=== PATIENT | male | born 1955 | race Caucasian/White ===

== ENCOUNTER → 2019-04-16 09:23 | Outpatient (CLI) | payer OTHER, SELFPAY ==
[2014-03-01 08:39] VITALS: BMI 32.1
[2019-04-16 12:44] LABS: BUN 17 mg/dL (7-18); Creatinine, Serum 1.21 mg/dL (0.70-1.30); EST Glomerular Filtration Rate 64 mL/min (>60); Glucose 94 mg/dL (74-106)
[2019-04-16 12:45] LABS: ALB/GLOB Ratio 1.2 RATIO (0.9-2.4); AST(SGOT) 19 U/L (15-37); Alanine Aminotransfer ALT/SGPT 32 U/L (16-61); Alkaline Phosphatase 84 U/L (45-117); Anion Gap 5 (5-15); Calcium,Total 9.3 mg/dL (8.5-10.1); Chloride 106 mmol/L (98-107); Est Glom Filt Rate - Afr Amer 77 mL/min (>60); Globulin 3.3 g/dL (2.2-4.2); PSA,Total - Annual Screen 1.56 ng/mL (0.00-4.00); Potassium 4.2 mmol/L (3.5-5.1); Protein, Total 7.3 g/dL (6.4-8.2); Sodium Level 139 mmol/L (136-145)
[2019-04-16 12:55] LABS: Microalbumin,Random Urine 18.7 mg/L (NO RANGE EST.); Microalbumin:Creatinine Ratio 7.1 mg/g CRE (<30 mg/g CRE)
[2019-04-17 14:08] LABS: CHOLESTEROL TOTAL 264 mg/dL (100-199); HDL-C 49 mg/dL (>39); HDL-P TOTAL 29.6 umol/L (>=30.5); SMALL LDL-P 1167 nmol/L (<=527); TRIGLYCERIDES 109 mg/dL (0-149)
[2019-04-19 15:12] LABS: INSULIN RESISTANCE SCORE 49 (<=45); LDL SIZE 20.9 nm (>20.5); LDL-C 193 mg/dL (0-99); LDL-P 2564 nmol/L (<1000)
== END ==
PROVIDERS: Family Provider Family Medicine; PCP Family Medicine; Referring Provider Family Medicine; Visit Provider Family Medicine
DX: Z00.00 Encounter for general adult medical examination without abnormal findings (principal); I10 Essential (primary) hypertension; E78.00 Pure hypercholesterolemia, unspecified
CPT/HCPCS: 36415; 80053; 80061; 82043; 82570; 83704; 84153; G0103

== ENCOUNTER → 2019-10-22 08:45 | Outpatient (CLI) | payer MEDICARE, OTHER, SELFPAY ==
[2019-10-22 10:53] LABS: ALB/GLOB Ratio 1.1 RATIO (0.9-2.4); AST(SGOT) 16 U/L (15-37); Alanine Aminotransfer ALT/SGPT 26 U/L (16-61); Albumin, Serum 3.8 g/dL (3.2-5.0); Alkaline Phosphatase 92 U/L (45-117); Anion Gap 5 (5-15); BUN 22 mg/dL (7-18); BUN/Creat Ratio 20.8 RATIO (10-20); Calcium,Total 9.1 mg/dL (8.5-10.1); Chloride 108 mmol/L (98-107); Creatinine, Serum 1.06 mg/dL (0.70-1.30); EST Glomerular Filtration Rate 74 mL/min (>60); Est Glom Filt Rate - Afr Amer 90 mL/min (>60); Globulin 3.4 g/dL (2.2-4.2); Glucose 93 mg/dL (74-106); Potassium 4.2 mmol/L (3.5-5.1); Protein, Total 7.2 g/dL (6.4-8.2); Sodium Level 141 mmol/L (136-145)
[2019-10-24 12:07] LABS: CHOLESTEROL TOTAL 254 mg/dL (100-199); HDL-C 57 mg/dL (>39); HDL-P TOTAL 35.4 umol/L (>=30.5); SMALL LDL-P 1469 nmol/L (<=527); TRIGLYCERIDES 146 mg/dL (0-149)
[2019-10-24 12:57] LABS: INSULIN RESISTANCE SCORE 67 (<=45); LDL SIZE 20.7 nm (>20.5); LDL-C 168 mg/dL (0-99); LDL-P 2630 nmol/L (<1000)
== END ==
PROVIDERS: PCP Family Medicine; Referring Provider Family Medicine; Visit Provider Family Medicine
DX: E78.00 Pure hypercholesterolemia, unspecified (principal); I10 Essential (primary) hypertension
CPT/HCPCS: 36415; 80053; 80061; 83704

== ENCOUNTER → 2020-07-25 09:33 | Outpatient (CLI) | payer MEDICARE, OTHER, SELFPAY ==
[2014-03-01 08:39] VITALS: BMI 32.1
[2020-07-25 13:00] LABS: ALB/GLOB Ratio 1.2 RATIO (0.9-2.4); AST(SGOT) 24 U/L (15-37); Alanine Aminotransfer ALT/SGPT 27 U/L (16-61); Albumin, Serum 3.9 g/dL (3.2-5.0); Alkaline Phosphatase 83 U/L (45-117); Anion Gap 7 (5-15); BUN 25 mg/dL (7-18); BUN/Creat Ratio 19.1 RATIO (10-20); Calcium,Total 9.1 mg/dL (8.5-10.1); Chloride 104 mmol/L (98-107); Cholesterol 192 mg/dL (200); Creatinine, Serum 1.31 mg/dL (0.70-1.30); EST Glomerular Filtration Rate 58 mL/min (>60); Est Glom Filt Rate - Afr Amer 70 mL/min (>60); Globulin 3.3 g/dL (2.2-4.2); Glucose 85 mg/dL (74-106); High Density Lipoprotein 89 mg/dL; Potassium 3.7 mmol/L (3.5-5.1); Protein, Total 7.2 g/dL (6.4-8.2); Sodium Level 138 mmol/L (136-145); Triglycerides 59 mg/dL; Very Low Density Lipoprotein 12 mg/dL (5-40)
== END ==
PROVIDERS: PCP Family Medicine; Visit Provider Family Medicine
DX: E78.00 Pure hypercholesterolemia, unspecified (principal)
CPT/HCPCS: 36415; 80053; 80061

== ENCOUNTER → 2020-10-20 09:41 | Outpatient (CLI) | payer MEDICARE, OTHER, SELFPAY ==
[2014-03-01 08:39] VITALS: BMI 32.1
[2020-10-20 12:26] LABS: ALB/GLOB Ratio 1.2 RATIO (0.9-2.4); AST(SGOT) 25 U/L (15-37); Alanine Aminotransfer ALT/SGPT 31 U/L (16-61); Albumin, Serum 3.9 g/dL (3.2-5.0); Alkaline Phosphatase 80 U/L (45-117); Anion Gap 6 (5-15); BUN 20 mg/dL (7-18); BUN/Creat Ratio 15.3 RATIO (10-20); Calcium,Total 9.1 mg/dL (8.5-10.1); Chloride 106 mmol/L (98-107); Cholesterol 194 mg/dL (200); Creatinine, Serum 1.31 mg/dL (0.70-1.30); EST Glomerular Filtration Rate 58 mL/min (>60); Est Glom Filt Rate - Afr Amer 70 mL/min (>60); Globulin 3.3 g/dL (2.2-4.2); Glucose 83 mg/dL (74-106); High Density Lipoprotein 70 mg/dL; Potassium 4.1 mmol/L (3.5-5.1); Protein, Total 7.2 g/dL (6.4-8.2); Sodium Level 139 mmol/L (136-145); Triglycerides 94 mg/dL; Very Low Density Lipoprotein 19 mg/dL (5-40)
== END ==
PROVIDERS: PCP Family Medicine; Referring Provider Family Medicine; Visit Provider Family Medicine
DX: I10 Essential (primary) hypertension (principal)
CPT/HCPCS: 36415; 80053; 80061

== ENCOUNTER 2021-04-10 16:00 | Outpatient (CLI) | payer MEDICARE, OTHER, SELFPAY | END 2021-04-10 23:59 | disposition short-term general hospital (02) | DX: J06.9 Acute upper respiratory infection, unspecified (principal) | CPT/HCPCS: 87635; U0003; U0005 ==

== ENCOUNTER 2021-04-27 08:31 | Outpatient (CLI) | payer MEDICARE, OTHER, SELFPAY ==
[2021-04-27 11:16] LABS: ALB/GLOB Ratio 1.1 RATIO (0.9-2.4); AST(SGOT) 20 U/L (15-37); Alanine Aminotransfer ALT/SGPT 25 U/L (16-61); Albumin, Serum 3.8 g/dL (3.2-5.0); Alkaline Phosphatase 82 U/L (45-117); Anion Gap 7 (5-15); BUN 22 mg/dL (7-18); BUN/Creat Ratio 20.2 RATIO (10-20); Calcium,Total 9.2 mg/dL (8.5-10.1); Chloride 108 mmol/L (98-107); Cholesterol 187 mg/dL (200); Creatinine, Serum 1.09 mg/dL (0.70-1.30); EST Glomerular Filtration Rate 72 mL/min (>60); Est Glom Filt Rate - Afr Amer 87 mL/min (>60); Globulin 3.4 g/dL (2.2-4.2); Glucose 88 mg/dL (74-106); High Density Lipoprotein 63 mg/dL; Potassium 4.3 mmol/L (3.5-5.1); Protein, Total 7.2 g/dL (6.4-8.2); Sodium Level 140 mmol/L (136-145); Triglycerides 68 mg/dL; Very Low Density Lipoprotein 14 mg/dL (5-40)
[2021-04-27 12:16] LABS: Microalbumin:Creatinine Ratio 5.3 mg/g CRE (<30 mg/g CRE)
== END 2021-04-27 23:59 | disposition short-term general hospital (02) ==
LOC: MFPLAB 08:35
PROVIDERS: PCP Family Medicine; Referring Provider Family Medicine; Visit Provider Family Medicine
DX: E78.00 Pure hypercholesterolemia, unspecified (principal); R79.89 Other specified abnormal findings of blood chemistry
CPT/HCPCS: 36415; 80053; 80061; 82043; 82570

== ENCOUNTER → 2021-10-23 | Outpatient (CLI) | payer MEDICARE, OTHER, SELFPAY ==
[2021-10-23 12:49] LABS: ALB/GLOB Ratio 1.2 RATIO (0.9-2.4); AST(SGOT) 16 U/L (15-37); Alanine Aminotransfer ALT/SGPT 22 U/L (16-61); Albumin, Serum 3.9 g/dL (3.2-5.0); Alkaline Phosphatase 78 U/L (45-117); Anion Gap 4 (5-15); BUN 18 mg/dL (7-18); BUN/Creat Ratio 13.1 RATIO (10-20); Calcium,Total 9.3 mg/dL (8.5-10.1); Chloride 107 mmol/L (98-107); Cholesterol 173 mg/dL (200); Creatinine, Serum 1.37 mg/dL (0.70-1.30); EST Glomerular Filtration Rate 55 mL/min (>60); Est Glom Filt Rate - Afr Amer 67 mL/min (>60); Globulin 3.3 g/dL (2.2-4.2); Glucose 86 mg/dL (74-106); High Density Lipoprotein 65 mg/dL; Potassium 3.8 mmol/L (3.5-5.1); Protein, Total 7.2 g/dL (6.4-8.2); Sodium Level 140 mmol/L (136-145); Triglycerides 94 mg/dL; Very Low Density Lipoprotein 19 mg/dL (5-40)
== END | disposition home or self-care (01) ==
LOC: MFPLAB 10:20
PROVIDERS: PCP Family Medicine; Visit Provider Family Medicine
DX: E78.00 Pure hypercholesterolemia, unspecified (principal)
CPT/HCPCS: 36415; 80053; 80061

== ENCOUNTER → 2021-12-18 | Outpatient (CLI) | payer MEDICARE, OTHER, SELFPAY ==
[2021-12-18 15:26] LABS: Absolute Lymphocyte Count 1.32 X10^3/uL (0.83-4.51); Absolute Neutrophil Count 4.9 X10^3/uL (2.0-7.7); Basophil# 0.02 X10^3/uL; Basophil% 0.3 % (0-1); Eosinophil# 0.12 X10^3/uL; Eosinophils% 1.7 % (0-5); Hematocrit 40.6 % (40-54); Hemoglobin 13.3 g/dL (13.0-16.5); Lymphocyte # 1.32 X10^3/ul (0.83-4.51); Lymphocyte % 18.9 % (19-41); Mean Corp Hgb Conc 32.8 g/dL (32-36); Mean Corpuscular Hgb 29.8 pg (27.0-32.0); Mean Corpuscular Volume 90.8 fL (80-94); Mean Platelet Vol. 10.3 fl (6.2-12.0); Monocyte# 0.57 X10^3/uL; Monocyte% 8.2 % (0-10); NRBC Flagged by Analyzer 0 % (0-5); Neutrophil # 4.93 X10^3/uL (2.7-7.7); Neutrophil % 70.6 % (47-70); Platelet Count 288 K/mm3 (150-450); RBC Distribution Width CV 17.2 % (11.6-14.6); RBC Distribution Width SD 57.6 fl (35.1-43.9); RET-HE 31.3 pg (30-35); Red Blood Count 4.47 M/mm3 (4.6-6.2); Reticulocyte Count 1.47 % (0.5-1.5)
[2021-12-18 15:44] LABS: Microalbumin,Random Urine 9.8 mg/L (NO RANGE EST.); Microalbumin:Creatinine Ratio 5.7 mg/g CRE (<30 mg/g CRE)
[2021-12-18 15:49] LABS: ALB/GLOB Ratio 1.1 RATIO (0.9-2.4); AST(SGOT) 18 U/L (15-37); Alanine Aminotransfer ALT/SGPT 25 U/L (16-61); Albumin, Serum 3.6 g/dL (3.2-5.0); Alkaline Phosphatase 78 U/L (45-117); Anion Gap 7 (5-15); BUN 23 mg/dL (7-18); BUN/Creat Ratio 19.5 RATIO (10-20); Calcium,Total 9.3 mg/dL (8.5-10.1); Chloride 107 mmol/L (98-107); Creatinine, Serum 1.18 mg/dL (0.70-1.30); EST Glomerular Filtration Rate 65 mL/min (>60); Est Glom Filt Rate - Afr Amer 79 mL/min (>60); Ferritin 9 ng/mL (26-388); Globulin 3.4 g/dL (2.2-4.2); Glucose 77 mg/dL (74-106); Iron Binding Capacity,Total 484 ug/dL (250-450); PSA,Total - Annual Screen 2.15 ng/mL (0.00-4.00); Potassium 3.8 mmol/L (3.5-5.1); Sodium Level 142 mmol/L (136-145)
== END | disposition home or self-care (01) ==
LOC: MFPLAB 12:15
PROVIDERS: PCP Family Medicine; Visit Provider Family Medicine
DX: I12.9 Hypertensive chronic kidney disease with stage 1 through stage 4 chronic kidney disease, or unspecified chronic kidney disease (principal); N18.2 Chronic kidney disease, stage 2 (mild); E61.1 Iron deficiency; Z12.5 Encounter for screening for malignant neoplasm of prostate
CPT/HCPCS: 36415; 80053; 82043; 82570; 82728; 83550; 84153; 85025; 85045; G0103

== ENCOUNTER → 2022-04-30 | Outpatient (CLI) | payer MEDICARE, OTHER, SELFPAY ==
[2022-04-30 12:36] LABS: Absolute Lymphocyte Count 1.31 X10^3/uL (0.83-4.51); Absolute Neutrophil Count 2.1 X10^3/uL (2.0-7.7); Basophil# 0.02 X10^3/uL; Basophil% 0.5 % (0-1); Eosinophil# 0.13 X10^3/uL; Eosinophils% 3.3 % (0-5); Hematocrit 45.2 % (40-54); Hemoglobin 15.1 g/dL (13.0-16.5); Lymphocyte # 1.31 X10^3/ul (0.83-4.51); Lymphocyte % 32.8 % (19-41); Mean Corp Hgb Conc 33.4 g/dL (32-36); Mean Corpuscular Hgb 30.9 pg (27.0-32.0); Mean Corpuscular Volume 92.6 fL (80-94); Monocyte# 0.44 X10^3/uL; NRBC Flagged by Analyzer 0 % (0-5); Neutrophil # 2.09 X10^3/uL (2.7-7.7); Neutrophil % 52.1 % (47-70); Platelet Count 270 K/mm3 (150-450); RBC Distribution Width SD 51.6 fl (35.1-43.9); Red Blood Count 4.88 M/mm3 (4.6-6.2)
[2022-04-30 12:52] LABS: ALB/GLOB Ratio 1.1 RATIO (0.9-2.4); AST(SGOT) 17 U/L (15-37); Alanine Aminotransfer ALT/SGPT 27 U/L (16-61); Albumin, Serum 3.6 g/dL (3.2-5.0); Alkaline Phosphatase 78 U/L (45-117); Anion Gap 8 (5-15); BUN 19 mg/dL (7-18); Calcium,Total 8.9 mg/dL (8.5-10.1); Chloride 106 mmol/L (98-107); Creatinine, Serum 1.12 mg/dL (0.70-1.30); EST Glomerular Filtration Rate 69 mL/min (>60); Est Glom Filt Rate - Afr Amer 84 mL/min (>60); Ferritin 32 ng/mL (26-388); Globulin 3.2 g/dL (2.2-4.2); Glucose 78 mg/dL (74-106); PSA,Total - Annual Screen 1.79 ng/mL (0.00-4.00); Potassium 4.2 mmol/L (3.5-5.1); Protein, Total 6.8 g/dL (6.4-8.2); Sodium Level 139 mmol/L (136-145)
[2022-04-30 15:45] LABS: Microalbumin:Creatinine Ratio 4.9 mg/g CRE (<30 mg/g CRE)
== END | disposition home or self-care (01) ==
LOC: MFPLAB 09:27
PROVIDERS: PCP Family Medicine; Visit Provider Family Medicine
DX: I12.9 Hypertensive chronic kidney disease with stage 1 through stage 4 chronic kidney disease, or unspecified chronic kidney disease (principal); N18.2 Chronic kidney disease, stage 2 (mild); E61.1 Iron deficiency; Z12.5 Encounter for screening for malignant neoplasm of prostate
CPT/HCPCS: 36415; 80053; 82043; 82570; 82728; 84153; 85025; G0103

== ENCOUNTER → 2022-11-05 | Outpatient (CLI) | payer MEDICARE, OTHER, SELFPAY ==
[2022-11-05 12:21] LABS: Absolute Lymphocyte Count 1.42 X10^3/uL (0.83-4.51); Absolute Neutrophil Count 2.6 X10^3/uL (2.0-7.7); Basophil# 0.02 X10^3/uL; Basophil% 0.4 % (0-1); Eosinophil# 0.12 X10^3/uL; Eosinophils% 2.6 % (0-5); Hematocrit 46.6 % (40-54); Hemoglobin 15.1 g/dL (13.0-16.5); Lymphocyte # 1.42 X10^3/ul (0.83-4.51); Lymphocyte % 30.6 % (19-41); Mean Corp Hgb Conc 32.4 g/dL (32-36); Mean Corpuscular Hgb 31.6 pg (27.0-32.0); Mean Corpuscular Volume 97.5 fL (80-94); Mean Platelet Vol. 10.3 fl (6.2-12.0); Monocyte# 0.48 X10^3/uL; Monocyte% 10.3 % (0-10); NRBC Flagged by Analyzer 0 % (0-5); Neutrophil # 2.59 X10^3/uL (2.7-7.7); Neutrophil % 55.9 % (47-70); Platelet Count 250 K/mm3 (150-450); Red Blood Count 4.78 M/mm3 (4.6-6.2); White Blood Count 4.6 K/mm3 (4.4-11.0)
[2022-11-05 13:25] LABS: AST(SGOT) 19 U/L (15-37); Alanine Aminotransfer ALT/SGPT 30 U/L (16-61); Albumin, Serum 3.6 g/dL (3.2-5.0); Alkaline Phosphatase 83 U/L (45-117); Anion Gap 2 (5-15); BUN 17 mg/dL (7-18); BUN/Creat Ratio 14.2 RATIO (10-20); Chloride 108 mmol/L (98-107); Cholesterol 201 mg/dL (200); EST Glomerular Filtration Rate 64 mL/min (>60); Est Glom Filt Rate - Afr Amer 77 mL/min (>60); Ferritin 31 ng/mL (26-388); Globulin 3.6 g/dL (2.2-4.2); Glucose 89 mg/dL (74-106); High Density Lipoprotein 66 mg/dL; Potassium 4.9 mmol/L (3.5-5.1); Protein, Total 7.2 g/dL (6.4-8.2); Sodium Level 139 mmol/L (136-145); Triglycerides 100 mg/dL; Very Low Density Lipoprotein 20 mg/dL (5-40)
[2022-11-05 14:46] LABS: Microalbumin,Random Urine 8.2 mg/L (NO RANGE EST.); Microalbumin:Creatinine Ratio 4.3 mg/g CRE (<30 mg/g CRE)
== END | disposition home or self-care (01) ==
LOC: MFPLAB 10:05
PROVIDERS: PCP Family Medicine; Visit Provider Family Medicine
DX: I12.9 Hypertensive chronic kidney disease with stage 1 through stage 4 chronic kidney disease, or unspecified chronic kidney disease (principal); N18.2 Chronic kidney disease, stage 2 (mild); E61.1 Iron deficiency; E78.00 Pure hypercholesterolemia, unspecified
CPT/HCPCS: 36415; 80053; 80061; 82043; 82570; 82728; 85025

== ENCOUNTER → 2023-05-02 | Outpatient (CLI) | payer MEDICARE, OTHER, SELFPAY ==
--- OUTSIDE RECORDS SUMMARY | 2023-05-02 10:52 | XMS RPT_ITS | CCD ---
Author Name Unknown Address [address] [place] [address] Organization [facility] Results Test Name Value Interpretation Reference Range Facil ity Progress note 11-04-2020 Note Date & Type Note Facility 11-04-2020 Note HNO ID: [id number] Author: Annmarie Prieto MD Service: ? Author Type: Physician Type: Progress Notes Filed: 11/05/2020 12:43 PM Note Text: Otto Salmon 1955 REFERRING PHYSICIAN: Clarence Acevedo MD CHIEF COMPLAINT: Consult HPI: The patient is a pleasant 65 year old male who presents for consideration of screening for colon cancer via colonoscopy. He is referred by his family physician. He had a previous colonoscopy in 2013, he had a colonoscopy in 2004 with findings of polyps but this pathology report was at the [facility] and no longer available. He notes no colon cancer in family He denies abdominal pain He denies changes inbowel habts He denies blood in stools PAST MEDICAL HISTORY Diagnosis Date - Essential hypertension - High cholesterol PAST SURGICAL HISTORY Procedure Laterality Date - PAST SURGICAL HISTORY OF 2000 uvulopalatopharyngoplasty Tonsillectomy and adenoidectomy Denies history of bone fractures Current Outpatient Medications Medication Sig - amLODIPine-Valsartan 5-320 mg per tablet - atorvastatin (LIPITOR) 10 mg tablet Take 10 mg by mouth once daily. - VASCEPA capsule Take 1 g by mouth twice daily. - pioglitazone (ACTOS) 30 mg tablet Take 30 mg by mouth once daily. - MULTI-VITAMIN ORAL Take by mouth once daily. - Ascorbic Rbsp-Yskdseqsu-Yhy (EMERGEN-C) 1,000 mg pwep Take by mouth once daily. - lysine 500 mg tab Take by mouth once daily. - Vitamin E, dl, acetate, (VITAMIN E) 400 unit capsule Take 400 Units by mouth once daily. - OTC NUTRITIONAL SUPPLEMENT Take 575 mg by mouth once daily. Black elderberry - INV VITAMIN D3 5000 UNITS CAPSULE (IRB 19-1548) Take 5,000 Units by mouth once daily. For Investigational Drug Use Only. PI: Melissa Ram, PhD. Take one capsule by mouth daily for 3 months prior to surgery and 3 months after surgery. - Saw [place] Fruit 450 mg cap Take by mouth. ALLERGIES: Patient has no known allergies. PERSONAL HISTORY: Social History Tobacco Use - Smoking status: Never Smoker - Smokeless tobacco: Never Used Substance Use Topics - Alcohol use: Yes Alcohol/week: 1.0 standard drinks Types: 1 Glasses of Wine (5oz) per week Comment: daily red wine - Drug use: Never FAMILY HISTORY Problem Relation Age of Onset - Diabetes Mother - Cancer Mother - Diabetes Father - Pancreatic Cancer Father - Diabetes Brother His father had pancreatic cancer. His grandmother had breast cancer Mother had what sounds like a sarcoma The review of systems data was entered by the nurse and reviewed by mi Nursing Notes: Marlene Simmons RN 11/01/2020 9:36 AM Signed REVIEW OF SYSTEMS: General: The patient denies fatigue, denies weight loss, denies weight gain, denies feeling hot, and denies feelings of cold. Eyes: The patient denies glaucoma, denies eye injury/surgery, wears glasses or contacts. Ear/Nose/Throat: The patient denies allergies, denies hayfever, denies ear infections, and denies bloody noses. Cardiovascular: The patient denies chest pain, denies heart disease, notes high blood pressure,denies cardiac stent, denies prior heart attack, denies irregular heart beat, notes high cholesterol, denies poor circulation, denies heart failure, other cardiac issues, denies claudication, notes cold feet, denies peripheral arterial stent. Respiratory: The patient denies tuberculosis, denies pneumonia, denies frequent cough, denies pulmonary embolism, denies shortness of breath, and denies coughing up blood. Gastrointestinal: The patient denies difficulty swallowing, denies acid reflux, denies ulcers, denies vomiting, denies jaundice/hepatitis, denies gallbladder problems, denies black or tarry stools, notes hemorrhoids, denies bleeding from rectum, denies diverticulitis, denies constipation, denies diarrhea, denies loss of stool control, and denies hernias. Kidney/Bladder: The patient denies kidney stones, denies urine infections, and denies bloody urine. Skin: The patient denies a history of skin cancer, denies bleeding/changing moles, and denies a history of skin rash. Neurologic: The patient denies a history of epilepsy/convulsions, denies headaches, denies head/spinal injuries, and denies stroke/TIA. Psychiatric: The patient denies psychiatric medications, denies depression, and denies voices, denies substance abuse. Endocrine: The patient denies thyroid disorders, denies diabetes, and denies hormonal problems. Hematologic: The patient denies a history of bruising, denies bleeding, and denies anemia, denies blood clots. Infections: The patient denies a history of measles and mumps, denies rheumatic fever, and denies sexually transmitted diseases. Musculoskeletal: The patient denies back pain/injury, denies back problems, denies sciatica, denies knee/foot trouble, denies arthritis, or denies gout. When was patient's last Mammogram screening? N/A Last Colonoscopy: (more content not included)... [facility] Summary Purpose Family History No Family History Records Found Advance Directives No Advanced Directives Records Found Additional Source Comments (unrecognized sect ion and content) No Status Records Found INFORMATION SOURCE (unrecogn ized section and content) FOR RECORDS PERTAINING TO PATIENTS WHO ARE OR HAVE BEEN ENROLLED IN A CHEMICAL DEPENDENCY/SUBSTANCEABUSE PROGRAM, SOME INFORMATION MAY BE OMITTED. This clinical summary was aggregated from multiple sources. Caution should be exercised in using it in the provision of clinical care. This summary normalizes information from multiple sources, and as a consequence, information in this document may materially change the coding, format and clinical context of patient data. In addition, data may be omitted in some cases. CLINICAL DECISIONS SHOULD BE BASED ON THE PRIMARY CLINICAL RECORDS. [employer] provides no warranty or guarantee of the accuracy or completeness of information in this document.
[2023-05-02 12:44] LABS: Absolute Lymphocyte Count 1.05 X10^3/uL (0.83-4.51); Absolute Neutrophil Count 3.5 X10^3/uL (2.0-7.7); Basophil# 0.02 X10^3/uL; Basophil% 0.4 % (0-1); Eosinophil# 0.07 X10^3/uL; Eosinophils% 1.4 % (0-5); Hematocrit 42.9 % (40-54); Hemoglobin 14.1 g/dL (13.0-16.5); Lymphocyte # 1.05 X10^3/ul (0.83-4.51); Lymphocyte % 20.8 % (19-41); Mean Corp Hgb Conc 32.9 g/dL (32-36); Mean Corpuscular Hgb 30.5 pg (27.0-32.0); Mean Corpuscular Volume 92.9 fL (80-94); Mean Platelet Vol. 10.1 fl (6.2-12.0); Monocyte# 0.42 X10^3/uL; Monocyte% 8.3 % (0-10); NRBC Flagged by Analyzer 0 % (0-5); Neutrophil # 3.48 X10^3/uL (2.7-7.7); Neutrophil % 68.9 % (47-70); Platelet Count 270 K/mm3 (150-450); RBC Distribution Width SD 51.4 fl (35.1-43.9); Red Blood Count 4.62 M/mm3 (4.6-6.2); White Blood Count 5.1 K/mm3 (4.4-11.0)
[2023-05-02 13:14] LABS: Microalbumin,Random Urine 9.5 mg/L (NO RANGE EST.); Microalbumin:Creatinine Ratio 4.8 mg/g CRE (<30 mg/g CRE)
[2023-05-02 13:15] LABS: ALB/GLOB Ratio 1.2 RATIO (0.9-2.4); AST(SGOT) 24 U/L (15-37); Alanine Aminotransfer ALT/SGPT 31 U/L (16-61); Albumin, Serum 3.8 g/dL (3.2-5.0); Alkaline Phosphatase 80 U/L (45-117); Anion Gap 3 (5-15); BUN 23 mg/dL (7-18); BUN/Creat Ratio 18.9 RATIO (10-20); Calcium,Total 9.3 mg/dL (8.5-10.1); Chloride 108 mmol/L (98-107); Cholesterol 181 mg/dL (200); Creatinine, Serum 1.22 mg/dL (0.70-1.30); EST Glomerular Filtration Rate 63 mL/min (>60); Est Glom Filt Rate - Afr Amer 76 mL/min (>60); Ferritin 16 ng/mL (26-388); Globulin 3.1 g/dL (2.2-4.2); Glucose 89 mg/dL (74-106); High Density Lipoprotein 60 mg/dL; Potassium 3.9 mmol/L (3.5-5.1); Protein, Total 6.9 g/dL (6.4-8.2); Sodium Level 138 mmol/L (136-145); Triglycerides 82 mg/dL; Very Low Density Lipoprotein 16 mg/dL (5-40)
== END | disposition home or self-care (01) ==
LOC: MFPLAB 10:17
PROVIDERS: PCP Family Medicine; Visit Provider Family Medicine
DX: N18.2 Chronic kidney disease, stage 2 (mild) (principal); E78.00 Pure hypercholesterolemia, unspecified; E61.1 Iron deficiency
CPT/HCPCS: 36415; 80053; 80061; 82043; 82570; 82728; 85025

== ENCOUNTER → 2023-10-21 | Outpatient (CLI) | payer MEDICARE, OTHER, SELFPAY ==
[2023-10-21 10:29] LABS: Bacteria 0 SEEN /hpf (None Seen); Mucous, Urine 0 SEEN /hpf (<or=2+); Red Blood Cells-Urine 0 SEEN /hpf (0-5); Squamous Epithelial Cells - UA 0 SEEN /hpf (0-5); White Blood Cells 0 SEEN /hpf (0-5)
[2023-10-21 12:11] LABS: Absolute Lymphocyte Count 1.32 X10^3/uL (0.83-4.51); Absolute Neutrophil Count 3.9 X10^3/uL (2.0-7.7); Basophil# 0.03 X10^3/uL; Basophil% 0.5 % (0-1); Eosinophils% 1.7 % (0-5); Hematocrit 42.1 % (40-54); Hemoglobin 14.2 g/dL (13.0-16.5); Lymphocyte # 1.32 X10^3/ul (0.83-4.51); Lymphocyte % 22.1 % (19-41); Mean Corp Hgb Conc 33.7 g/dL (32-36); Mean Corpuscular Hgb 31.9 pg (27.0-32.0); Mean Corpuscular Volume 94.6 fL (80-94); Mean Platelet Vol. 10.1 fl (6.2-12.0); Monocyte# 0.59 X10^3/uL; Monocyte% 9.9 % (0-10); NRBC Flagged by Analyzer 0 % (0-5); Neutrophil # 3.92 X10^3/uL (2.7-7.7); Neutrophil % 65.6 % (47-70); Platelet Count 252 K/mm3 (150-450); RBC Distribution Width SD 49.1 fl (35.1-43.9); Red Blood Count 4.45 M/mm3 (4.6-6.2)
[2023-10-21 14:10] LABS: ALB/GLOB Ratio 1.1 RATIO (0.9-2.4); AST(SGOT) 23 U/L (15-37); Alanine Aminotransfer ALT/SGPT 26 U/L (16-61); Albumin, Serum 3.6 g/dL (3.2-5.0); Alkaline Phosphatase 81 U/L (45-117); Anion Gap 6 (5-15); BUN 25 mg/dL (7-18); CRP 3.87 mg/L (0.0-3.0); Calcium,Total 9.2 mg/dL (8.5-10.1); Chloride 106 mmol/L (98-107); Creatinine, Serum 1.04 mg/dL (0.70-1.30); EST Glomerular Filtration Rate 75 mL/min (>60); Est Glom Filt Rate - Afr Amer 91 mL/min (>60); Ferritin 28 ng/mL (26-388); Globulin 3.4 g/dL (2.2-4.2); Glucose 98 mg/dL (74-106); Potassium 4.3 mmol/L (3.5-5.1); Sodium Level 139 mmol/L (136-145)
[2023-10-21 21:24] LABS: Color, Urine Yellow (Yellow); Glucose, Dipstick Normal (Normal); Ketone-Dipstick Negative (Negative); Leukocyte Esterase-Dipstick Negative /ul (Negative); Nitrite-Dipstick Negative (Negative); Occult Blood-Urine Negative /ul (Negative); Protein-Dipstick Negative (Negative); Urine Bilirubin Dipstick Negative (Negative); Urine Clarity Clear (Clear); Urine Urobilinogen Normal (Normal)
[2023-10-21 21:49] LABS: Calcium Oxalate Crystals Ur RARE /hpf (<or=2+)
[2023-10-23 16:10] LABS: PROEL- A/G Ratio 1.3 (0.7-1.7); PROEL- Albumin 3.7 g/dL (2.9-4.4); PROEL- Alpha-1 Globulin 0.2 g/dL (0.0-0.4); PROEL- Alpha-2 Globulin 0.7 g/dL (0.4-1.0); PROEL- Beta Globulin 0.9 g/dL (0.7-1.3); PROEL- Gamma Globulin 1.2 g/dL (0.4-1.8); PROEL- Globulin, Total 2.9 g/dL (2.2-3.9); PROEL- TOTAL PROTEIN 6.6 g/dL (6.0-8.5); PROEL-M-Spike 0.5 g/dL (Not Observed)
== END | disposition home or self-care (01) ==
LOC: MFPLAB 10:26
PROVIDERS: PCP Family Medicine; Visit Provider Family Medicine
DX: R10.9 Unspecified abdominal pain (principal); E61.1 Iron deficiency
CPT/HCPCS: 36415; 80053; 81001; 82728; 84165; 85025; 86140; 87086

== ENCOUNTER → 2023-11-07 | Outpatient (CLI) | payer MEDICARE, OTHER, SELFPAY ==
[2023-11-07 12:35] LABS: Vitamin D,25 Hydroxy 59.5 ng/mL
[2023-11-07 12:36] LABS: PTHIN 68.7 pg/mL (18.4-80.1)
[2023-11-08 13:09] LABS: PROEL- A/G Ratio 1.3 (0.7-1.7); PROEL- Albumin 3.9 g/dL (2.9-4.4); PROEL- Alpha-1 Globulin 0.2 g/dL (0.0-0.4); PROEL- Alpha-2 Globulin 0.7 g/dL (0.4-1.0); PROEL- Beta Globulin 1.1 g/dL (0.7-1.3); PROEL- Gamma Globulin 0.9 g/dL (0.4-1.8); PROEL- Globulin, Total 2.9 g/dL (2.2-3.9); PROEL- TOTAL PROTEIN 6.8 g/dL (6.0-8.5); PROEL-M-Spike Not Observed g/dL (Not Observed)
== END | disposition home or self-care (01) ==
LOC: MFPLAB 10:49
PROVIDERS: PCP Family Medicine; Visit Provider Family Medicine
DX: D47.2 Monoclonal gammopathy (principal)
CPT/HCPCS: 36415; 82306; 83970; 84165

== ENCOUNTER → 2024-04-30 | Outpatient (CLI) | payer MEDICARE, OTHER, SELFPAY ==
[2024-04-30 12:31] LABS: Anion Gap 5 (5-15); BUN 25 mg/dL (7-18); BUN/Creat Ratio 22.1 RATIO (10-20); Calcium,Total 9.5 mg/dL (8.5-10.1); Chloride 106 mmol/L (98-107); Cholesterol 196 mg/dL (200); Creatinine, Serum 1.13 mg/dL (0.70-1.30); EST Glomerular Filtration Rate 68 mL/min (>60); Est Glom Filt Rate - Afr Amer 83 mL/min (>60); Glucose 93 mg/dL (74-106); High Density Lipoprotein 68 mg/dL; Potassium 4.3 mmol/L (3.5-5.1); Sodium Level 138 mmol/L (136-145); Triglycerides 76 mg/dL; Very Low Density Lipoprotein 15 mg/dL (5-40)
[2024-05-01 16:08] LABS: PROEL- A/G Ratio 1.4 (0.7-1.7); PROEL- Albumin 3.8 g/dL (2.9-4.4); PROEL- Alpha-1 Globulin 0.2 g/dL (0.0-0.4); PROEL- Alpha-2 Globulin 0.7 g/dL (0.4-1.0); PROEL- Gamma Globulin 0.9 g/dL (0.4-1.8); PROEL- Globulin, Total 2.8 g/dL (2.2-3.9); PROEL- TOTAL PROTEIN 6.6 g/dL (6.0-8.5); PROEL-M-Spike Not Observed g/dL (Not Observed)
== END | disposition home or self-care (01) ==
LOC: MFPLAB 10:29
PROVIDERS: PCP Family Medicine; Referring Provider Family Medicine; Visit Provider Family Medicine
DX: E78.00 Pure hypercholesterolemia, unspecified (principal); D47.2 Monoclonal gammopathy
CPT/HCPCS: 36415; 80048; 80061; 84165

== ENCOUNTER → 2024-11-10 | Outpatient (CLI) | payer MEDICARE, OTHER, SELFPAY ==
[2024-11-10 12:38] LABS: Hematocrit 42.0 % (40-54); Hemoglobin 14.0 g/dL (13.0-16.5); Immature Granulocytes Count 0.020 X10^3/uL (0.0-0.0); Mean Corp Hgb Conc 33.3 g/dL (32-36); Mean Corpuscular Volume 95.5 fL (80-94); Mean Platelet Vol. 10.0 fl (6.2-12.0); NRBC Flagged by Analyzer 0 % (0-5); Platelet Count 235 K/mm3 (150-450); RBC Distribution Width CV 14.6 % (11.6-14.6); RBC Distribution Width SD 51.1 fl (35.1-43.9); Red Blood Count 4.40 M/mm3 (4.6-6.2); White Blood Count 6.2 K/mm3 (4.4-11.0)
[2024-11-10 13:03] LABS: AST(SGOT) 25 U/L (<=37); Alanine Aminotransfer ALT/SGPT 20 U/L (<=46); Albumin, Serum 4.0 g/dL (3.4-4.8); Alkaline Phosphatase 78 U/L (40-129); Anion Gap 10 (5-15); BUN 17 mg/dL (4-19); BUN/Creat Ratio 16.4 RATIO (10-20); Calcium,Total 9.4 mg/dL (7.6-11.0); Carbon Dioxide 25.0 mmol/L (21.0-32.0); Chloride 105 mmol/L (98-108); Cholesterol 184 mg/dL (<=200); Globulin 2.5 g/dL (2.2-4.2); Glucose 93 mg/dL (70-99); Low Density Lipoprotein Calc. 102 mg/dL; Potassium 4.7 mmol/L (3.3-5.1); Triglycerides 86 mg/dL; Very Low Density Lipoprotein 17 mg/dL (5-40); cholesterol:hdl ratio screen 2.82
--- OUTSIDE RECORDS SUMMARY | 2024-11-10 14:09 | XMS RPT_ITS | CCD ---
Author Organization [facility] Care Team Providers Care Security Associate Name Role Phone ESTUARDO ACEVEDO MD Attending Unavailable PHYSICIAN, DARIO Primary Care Unavailable Estuardo Acevedo MD Primary Care Provider ANNMARIE PRIETO Attending Unavailable ESTUARDO ACEVEDO Primary Care Unavailable SOMMER MARRERO Referring Unavailable SOMMER MARRERO Attending Unavailable ESTUARDO ACEVEDO Referring Unavailable ESTUARDO ACEVEDO Primary Care Unavailable Estuardo Acevedo Attending Unavailable Estuardo Acevedo Primary Care Unavailable Estuardo Acevedo Attending Unavailable Estuardo Acevedo Primary Care Unavailable Estuardo Acevedo Primary Care Unavailable Estuardo Acevedo Referring Unavailable Estuardo Acevedo Attending Unavailable PHYSICIAN, NONE Primary Care Physician Unavailab le Medications Current Medications Medication Drug Class(es) Dates Sig (Normalized) Sig (Original) amLODIPine 2.5 mg oral tablet (5 sources) Dihydropyridine Calcium Channel Anat Start: 4 take 2.5 mg by mouth once daily Amlodipine Active 2.5 MG PO DAILY March 01, 2014 12:00am amLODIPine 5 mg / valsartan 320 mg oral tablet (3 sources) Dihydropyridine Calcium Channel Anat, Angiotensin 2 Receptor Anat Start: 1 take 1 tablet by mouth once daily amLODIPine-Valsarta n 5-320 mg per tablet Take 1 tablet by mouth once daily. 10/11/2020 Active Ascorbic Wvcm-Xgsvaxwyf-Wzv (EMERGEN-C) 1,000 mg pwep (3 sources) Ascorbic Nmvb-Jfutqlrrp-Wki (EMERGEN-C) 1,000 mg pwep Take by mouth once daily. Active aspirin 81 mg chewable tablet (5 sources) Platelet Aggregation Inhibitor, Nonsteroidal Anti-inflammatory Drug Start: 4 take 81 mg by mouth once daily Aspirin Active 81 MG PO DAILY March 01, 2014 12:00am atorvastatin 10 mg oral tablet (3 sources) HMG-CoA Reductase Inhibitor Start: 1 take 1 tablet by mouth every other day atorvastatin (LIPITOR) 10 mg tablet Take 10 mg by mouth every other day. M-W-F 10/12/2020 Active cholecalciferol 0.125 mg oral tablet (3 sources) Vitamin D take 1 tablet by mouth once daily cholecalciferol (VITAMIN D-3) 5,000 unit tab Take 5,000 Units by mouth once daily. Active cinnamon bark 500 mg oral capsule (3 sources) take 1 capsule by mouth twice daily Cinnamon Bark (CINNAMON) 500 mg cap Take 500 mg by mouth two times a day. Active ELDERBERRY FRUIT (3 sources) take 575 mg by mouth once daily elderberry fruit (ELDERBERRY ORAL) Take 575 mg by mouth once daily. Active ferrous sulfate 325 mg oral tablet (3 sources) take 1 tablet by mouth once daily ferrous sulfate (IRON) 325 mg (65 mg iron) tablet Take 325 mg by mouth once daily. Active icosapent ethyl 1000 mg oral capsule (3 sources) Start: 1 take 1 capsule by mouth twice daily VASCEPA capsule Take 2 g by mouth two times a day. 10/12/2020 Active losartan potassium 100 mg oral tablet (5 sources) Angiotensin 2 Receptor Anat Start: 4 take 100 mg by mouth once daily Losartan Active 100 MG PO DAILY March 01, 2014 12:00am lysine 500 mg oral tablet (3 sources) take 1 tablet by mouth once daily lysine 500 mg tab Take 500 mg by mouth once daily. Active MULTI-VITAMIN ORAL (3 sources) MULTI-VITAMIN OR AL Take by mouth once daily. Active pioglitazone 30 mg oral tablet (3 sources) Peroxisome Proliferator Receptor alpha Agonist, Peroxisome Proliferator Receptor gamma Agonist, Thiazolidinedione Start: 1 take 1 tablet by mouth once daily pioglitazone (ACTOS) 30 mg tablet Take 30 mg by mouth once daily. 10/26/2020 Active polyethylene glycol 3350 387462 mg / potassium chloride 2970 mg / sodium bicarbonate 6740 mg / sodium chloride 5860 mg / sodium sulfate 47355 mg powder for oral solution (1 source) Osmotic Laxative Start: 4 End: 4 peg 3350-Electrolytes (GOLYTELY) 236-22.74-6.74 -5.86 gram suspension Indications: Encounter for screening for malignant neoplasm of colon Take 4,000 mL by mouth one time only for 1 dose. Refer to printed prep instructions from your provider. 4000 mL 01/28/2024 01/28/2024 Active pravastatin sodium 20 mg oral tablet (5 sources) HMG-CoA Reductase Inhibitor Start: 4 take 20 mg by mouth at bedtime Pravastatin Active 20 MG PO AT BEDTIME March 01, 2014 12:00am [place] Fruit 450 mg cap (3 sources) take 1 capsule by mouth once daily Saw [place] Fruit 450 mg cap Take 450 mg by mouth once daily. Active vitamin e 268 mg oral capsule (3 sources) take 1 capsule by mouth once daily Vitamin E, dl, acetate, (VITAMIN E) 400 unit capsule Take 400 Units by mouth once daily. Active Completed/Discontinued Medications Medication Drug Class(es) Dates Sig (Normalized) Sig (Original) calcium chloride 0.0014 meq/ml / potassium chloride 0.004 meq/ml / sodium chloride 0.103 meq/ml / sodium lactate 0.028 meq/ml injectable solution (1 source) Start: 02-28-2024 End: 02-28-2024 take 30 mL intravenously every hour 30 mL/hr, INTRAVENOUS, CONTINUOUS, Starting on Sat02/28/24 at 0900, Until Sat02/28/24 at 1013, Preprocedure diphenhydrAMINE (1 source) Histamine-1 Receptor Antagonist Start: 02-28-2024 End: 02-28-2024 12.5-50 mg, INTRAVENOUS, DIRECTED, Starting on Sat02/28/24 at 1000, Until Sat02/28/24 at 1359, DOSING DIRECTED BY PHYSICIAN FOR PROCEDURAL SEDATION ONLY, Intraprocedure 1 ml fentaNYL 0.05 mg/ml injection (1 source) Opioid Agonist Start: 02-28-2024 End: 02-28-2024 25-100 mcg, INTRAVENOUS, DIRECTED, Starting on Sat02/28/24 at 1000, Until Sat02/28/24 at 1359, DOSING DIRECTED BY PHYSICIAN FOR PROCEDURAL SEDATION ONLY, Intraprocedure INV VITAMIN D3 5000 UNITS CAPSULE (IRB 19-1548) (1 source) End: 01-28-2024 take 1 capsule by mouth once daily INV VITAMIN D3 5000 UNITS CAPSULE (IRB 19-1548) Take 5,000 Units by mouth once daily. For Investigational Drug Use Only. PI: Melissa Ram, PhD. Take one capsule by mouth daily for 3 months prior to surgery and 3 months after surgery. 01/28/2024 Discontinued (Discontinued by Patient) 5 ml midazolam 1 mg/ml injection (1 source) Benzodiazepine Start: 02-28-2024 End: 02-28-2024 1-5 mg, INTRAVENOUS, DIRECTED, Starting on Sat02/28/24 at 1000, Until Sat02/28/24 at 1359, DOSING DIRECTED BY PHYSICIAN FOR PROCEDURAL SEDATION ONLY, Intraprocedure OTC NUTRITIONAL SUPPLEMENT (1 source) End: 01-28-2024 take 575 mg by mouth once daily OTC NUTRITIONAL SUPPLEMENT Take 575 mg by mouth once daily. Black elderberry 01/28/2024 Discontinued (Discontinued by Patient) Problems Active Problems Problem Classification Problem Date Documented Da te Episodic/Chronic Disorders of lipid metabolism (1 source) Pure hypercholesterolemi a, unspecified; Translations: [Pure hypercholesterolemi a, unspecified] Onset: 05-20-2024 Chronic Essential hypertension (4 sources) Essential hypertension; Translations: [Essential (primary) hypertension] Onset: 01-27-2024 01-27-2024 Chronic Neoplasms of unspecified nature or uncertain behavior (1 source) Monoclonal gammopathy; Translations: [Monoclonal gammopathy] Onset: 12-16-2023 Chronic Open wounds of extremities (1 source) Laceration of finger without foreign body; Translations: [Laceration without foreign body of unspecified finger without damage to nail, initial encounter] Onset: 11-09-2024 Episodic Other and unspecified benign neoplasm (1 source) History of polyp of colon; Translations: [History of colonic polyps] 01-28-2024 Episodic Other screening for suspected conditions (not mental disorders or infectious disease) (5 sources) Patient encounter status; Translations: [Encounter for screening for malignant neoplasm of colon] Onset: 02-28-2024 01-28-2024 Episodic Past or Other Problems Problem Classification Problem Date Documented Da te Episodic/Chronic Abdominal pain (1 source) Unspecified abdominal pain; Translations: [Unspecified abdominal pain] Onset: 11-07-2023 Episodic Results Test Name Value Interpretation Reference Range Facility Protein Electroph, Son 05-01 Albumin [Mass/Vol] 3.8 g/dL Normal 2.9-4.4 [facility] Comment on above: Order Comment: Order Date: 11/07/23 Order Info: [id number] - VITD25 Performed By: #### L 509.1000, L3100.3450, L506.1000 #### [facility] [address] [place], [address] Albumin/Globulin [Mass ratio] 1.4 {ratio} Normal 0.7-1.[address] [facility] Comment on above: Order Comment: Order Date: 11/07/23 Order Info: [id number] - VITD25 Performed By: #### L 509.1000, L3100.3450, L506.1000 #### [facility] [address] [place], [address] ALPHA-1 GLOBUL 0.2 g/dL Normal 0.0-0.[address] [facility] Comment on above: Order Comment: Order Date: 11/07/23 Order Info: [id number] - VITD25 Performed By: #### L 509.1000, L3100.3450, L506.1000 #### [facility] [address] [place], [address] ALPHA-2 GLOBUL 0.7 g/dL Normal 0.4-1.[address] [facility] Comment on above: Order Comment: Order Date: 11/07/23 Order Info: [id number] - VITD25 Performed By: #### L 509.1000, L3100.3450, L506.1000 #### [facility] [address] [place], [address] BETA GLOBULIN 1.0 g/dL Normal 0.7-1.[address] [facility] Comment on above: Order Comment: Order Date: 11/07/23 Order Info: [id number] - VITD25 Performed By: #### L 509.1000, L3100.3450, L506.1000 #### [facility] [address] [place], [address] GAMMA GLOBULIN 0.9 g/dL Normal 0.4-1.[address] [facility] Comment on above: Order Comment: Order Date: 11/07/23 Order Info: [id number] - VITD25 Performed By: #### L 509.1000, L3100.3450, L506.1000 #### [facility] [address] [place], [place], [address] Globulin (S) [Mass/Vol] 2.8 g/dL Normal 2.2-3.9 [facility] Comment on above: Order Comment: Order Date: 11/07/23 Order Info: [id number] - VITD25 Performed By: #### L 509.1000, L3100.3450, L506.1000 #### [facility] [address] [place], [address] INTERPRETATION Comment Normal . [facility] Comment on above: Order Comment: Order Date: 11/07/23 Order Info: [id number] - VITD25 Result Comment: Prot ein electrophoresis scan will follow via computer, mail, or building insulation supervisor delivery. Performed By: #### L 509.1000, L3100.3450, L506.1000 #### [facility] [address] [place], [address] M-SPIKE Not Observed Normal Not Observed [facility] Comment on above: Order Comment: Order Date: 11/07/23 Order Info: [id number] - VITD25 Performed By: #### L 509.1000, L3100.3450, L506.1000 #### [facility] [address] [place], [address] NOTE: Comment Normal . [facility] Comment on above: Order Comment: Order Date: 11/07/23 Order Info: [id number] - VITD25 Result Comment: The SPE pattern appears unremarkable. Evidence of monoclonal protein is not apparent. Performed at: [address] [id number] Packing Inspector: Dakotah Khoury PhD, Phone: [phone] Performed By: #### L 509.1000, L3100.3450, L506.1000 #### [facility] [address] [place], [address] Protein [Mass/Vol] 6.6 g/dL Normal 6.0-8.5 [facility] Comment on above: Order Comment: Order Date: 11/07/23 Order Info: [id number] - VITD25 Performed By: #### L 509.1000, L3100.3450, L506.1000 #### [facility] [address] [place], [address] Basic Metabolic Profile (BMP )on 04-30-2024 BUN/CRE 22.1 RATIO High 10-[address] [facility] Comment on above: Order Comment: Order Date: 11/07/23 Order Info: [id number] - VITD25 Performed By: #### L 509.1000, L3100.3450, L506.1000 #### [facility] [address] [place], [address] CA,Total 9.5 mg/dL Normal 8.5-10.[address] [facility] Comment on above: Order Comment: Order Date: 11/07/23 Order Info: [id number] - VITD25 Performed By: #### L 509.1000, L3100.3450, L506.1000 #### [facility] [address] [place], [address] Chloride [Moles/Vol] 106 mmol/L Normal 98-107 [facility] Comment on above: Order Comment: Order Date: 11/07/23 Order Info: [id number] - VITD25 Performed By: #### L 509.1000, L3100.3450, L506.1000 #### [facility] [address] [place], [address] CO2 [Moles/Vol] 28.0 mmol/L Normal 21.0-32.[address] [facility] Comment on above: Order Comment: Order Date: 11/07/23 Order Info: [id number] - VITD25 Performed By: #### L 509.1000, L3100.3450, L506.1000 #### [facility] [address] [place], [address] Creatinine [Mass/Vol] 1.13 mg/dL Normal 0.70-1.30 [facility] Comment on above: Order Comment: Order Date: 11/07/23 Order Info: [id number] - VITD25 Result Comment: The validity of the calculated GFR GFRAA in patients over 70 years has not been determined. Clinical correlation is essential. Performed By: #### L 509.1000, L3100.3450, L506.1000 #### [facility] [address] [place], [address] EST GFR - AA 83 mL/min Normal >[address] [facility] Comment on above: Order Comment: Order Date: 11/07/23 Order Info: [id number] - VITD25 Result Comment: Afri can Qatari GFR Calc Performed By: #### L 509.1000, L3100.3450, L506.1000 #### [facility] [address] [place], [address] GAP 5 Normal 5-[address] [facility] Comment on above: Order Comment: Order Date: 11/07/23 Order Info: [id number] - VITD25 Performed By: #### L 509.1000, L3100.3450, L506.1000 #### [facility] [address] [place], [address] GFR/1.73 sq M.predicted among non-blacks MDRD (S/P/Bld) [Vol rate/Area] 68 mL/min/{1.73_m2} Normal >[address] [facility] Comment on above: Order Comment: Order Date: 11/07/23 Order Info: [id number] - VITD25 Result Comment: Non- GFR Calc Performed By: #### L 509.1000, L3100.3450, L506.1000 #### [facility] [address] [place], [address] Glucose [Mass/Vol] 93 mg/dL Normal 74-106 [facility] Comment on above: Order Comment: Order Date: 11/07/23 Order Info: [id number] - VITD25 Performed By: #### L 509.1000, L3100.3450, L506.1000 #### [facility] [address] [place], [address] Potassium [Moles/Vol] 4.3 mmol/L Normal 3.5-5.1 [facility] Comment on above: Order Comment: Order Date: 11/07/23 Order Info: [id number] - VITD25 Performed By: #### L 509.1000, L3100.3450, L506.1000 #### [facility] [address] [place], [address] Sodium [Moles/Vol] 138 mmol/L Normal 136-145 [facility] Comment on above: Order Comment: Order Date: 11/07/23 Order Info: [id number] - VITD25 Performed By: #### L 509.1000, L3100.3450, L506.1000 #### [facility] [address] [place], [address] Urea nitrogen [Mass/Vol] 25 mg/dL High 7-[address] [facility] Comment on above: Order Comment: Order Date: 11/07/23 Order Info: [id number] - VITD25 Performed By: #### L 509.1000, L3100.3450, L506.1000 #### [facility] [address] [place], [address] Lipid Profileon 04-30-2024 Cholesterol [Mass/Vol] 196 mg/dL Normal 200 [facility] Comment on above: Order Comment: Order Date: 11/07/23 Order Info: [id number] - VITD25 Result Comment: <200 mg/dL Desirable 200-240 mg/dL Borderline >240 mg/dL High Risk Performed By: #### L 509.1000, L3100.3450, L506.1000 #### [facility] [address] [place], [address] Cholesterol in HDL [Mass/Vol] 68 mg/dL Normal [facility] Comment on above: Order Comment: Order Date: 11/07/23 Order Info: [id number] - VITD25 Result Comment: The drugs N-Acetylcysteine and Metamizole may falsely depress this assay. Reference Range HDL <40 mg/dL Low HDL Cholesterol HDL >or= 60 mg/dL High HDL Cholesterol Performed By: #### L 509.1000, L3100.3450, L506.1000 #### [facility] [address] [place], [address] Cholesterol in LDL [Mass/Vol] 113 mg/dL Normal 0-[address] [facility] Comment on above: Order Comment: Order Date: 11/07/23 Order Info: [id number] - VITD25 Performed By: #### L 509.1000, L3100.3450, L506.1000 #### [facility] [address] [place], [address] Cholesterol in VLDL [Mass/Vol] 15 mg/dL Normal 5-[address] [facility] Comment on above: Order Comment: Order Date: 11/07/23 Order Info: [id number] - VITD25 Performed By: #### L 509.1000, L3100.3450, L506.1000 #### [facility] [address] [place], [address] Triglyceride [Mass/Vol] 76 mg/dL Normal [facility] Comment on above: Order Comment: Order Date: 11/07/23 Order Info: [id number] - VITD25 Result Comment: The drugs N-Acetylcysteine and Metamizole may falsely depress this assay. Serum Triglycerides Reference Interval Normal <150 mg/dL Borderline high 150 - 199 mg/dL High 200 - 499 mg/dL Very High > or = 500 mg/dL Performed By: #### L 509.1000, L3100.3450, L506.1000 #### [facility] [address] [place], [address] [id number] 02-28-2024 [id number] HNO ID: [id number] Author: APPLE WILLIS RN Service: ? Author Type: Registered Nurse Type: [id number] Filed: 02/28/2024 10:15 Note Text: The patient received a copy of Colonoscopy discharge instructions that contain information for how to contact the physician who performed the procedure and when to seek medical care. Normal [facility] Colonoscopyon 02-28-2024 Colonoscopy [facility] Gastrointestinal Endoscopy Patient Name: Carisa Mcdonald Procedure Date: 02/28/2024 9:31 AM Date of : 1955 Admit Type: Outpatient Age: 68 Gender: Male Note Status: Finalized Procedure: Colonoscopy Indications: Screening for colorectal malignant neoplasm Providers: Annmarie Prieto MD Patient Profile: Refer to note in patient chart for documentation of history and physical. Last Colonoscopy: 2013. Referring Physician: Sommer Marrero (Referring MD) Medicines: Midazolam 5 mg IV, Fentanyl 100 micrograms IV, Diphenhydramine 50 mg IV Complications: No immediate complications. Requesting Provider: Procedure: Pre-Anesthesia Assessment: - Prior to the procedure, a History and Physical was performed, and patient medications and allergies were reviewed. The patient is competent. The risks and benefits of the procedure and the sedation options and risks were discussed with the patient. All questions were answered and informed consent was obtained. Patient identification and proposed procedure were verified by the physician in the pre-procedure area. Mental Status Examination: alert and oriented. Airway Examination: normal oropharyngeal airway and neck mobility. Respiratory Examination: clear to auscultation. CV Examination: normal. Prophylactic Antibiotics: The patient does not require prophylactic antibiotics. Prior Anticoagulants: The patient has taken no anticoagulant or antiplatelet agents. ASA Grade Assessment: III - A patient with severe systemic disease. After reviewing the risks and benefits, the patient was deemed in satisfactory condition to undergo the procedure. The anesthesia plan was to use moderate sedation / analgesia (conscious sedation). Immediately prior to administration of medications, the patient was re-assessed for adequacy to receive sedatives. The heart rate, respiratory rate, oxygen saturations, blood pressure, adequacy of pulmonary ventilation, and response to care were monitored throughout the procedure. The physical status of the patient was re-assessed after the procedure. After I obtained informed consent, the scope was passed under direct vision. Throughout the procedure, the patient's blood pressure, pulse, and oxygen saturations were monitored continuously. The Colonoscope was introduced through the anus and advanced to the cecum, identified by the appendiceal orifice, ileocecal valve and palpation. The colonoscopy was performed without difficulty. The patient tolerated the procedure well. The quality of the bowel preparation was adequate to identify polyps greater than 5 mm in size. The appendiceal orifice and the rectum were photographed. Moderate Sedation: The administration of moderate sedation was initiated at 09:35. Moderate (conscious) sedation was personally administered by the endoscopist. The following parameters were monitored: oxygen saturation, heart rate, blood pressure, respiratory rate, EKG, adequacy of pulmonary ventilation, and response to care. Total physician intraservice time was 26 minutes. Findings: The perianal and digital rectal examinations were normal. Multiple small-mouthed diverticula were found in the sigmoid colon. Non-bleeding internal hemorrhoids were found. A 2 to 3 mm polyp was found in the transverse colon. The polyp was sessile. The polyp was removed with a cold biopsy forceps. Resection and retrieval were complete. Verification of patient identification for the specimen was done by the nurse. Estimated blood loss was minimal. Impression: - Diverticulosis in the sigmoid colon. - Non-bleeding internal hemorrhoids. - One 2 to 3 mm polyp in the transverse colon, removed with a cold biopsy forceps. Resected and retrieved. Recommendation: - Await pathology results. - - Follow up with Evelyne Marrero NP, may be via televisit for discussion of pathology results and determination of timing of future endoscopies - Patient has a contact number available for emergencies. The signs and symptoms of potential delayed complications were discussed with the patient. Return to normal activities tomorrow. Written discharge instructions were provided to the patient. - Continue present medications. - Resume previous diet. - Repeat colonoscopy is recommended for surveillance. The colonoscopy date will be determined based on pathology results from today's exam and current guidelines. Procedure Code(s): --- Professional --- 53519, Colonoscopy, flexible; with biopsy, single or multiple 09052, 59, Moderate sedation services provided by the same physician or other qualified health resident care aid performing the diagnostic or therapeutic service that the sedation supports, requiring the presence of an independent trained observer to assist in the monitoring of the patient's level of consciousness and physiological status; ini (more content not included)... Normal [facility] Colonoscopy Study observatio non 02-28-2024 [place] [facility] Gastrointestinal Endoscopy Patient Name: Carisa Mcdonald Procedure Date: 02/28/2024 9:31 AM Date of : 1955 Admit Type: Outpatient Age: 68 Gender: Male Note Status: Finalized Procedure: Colonoscopy Indications: Screening for colorectal malignant neoplasm Providers: Annmarie Prieto MD Patient Profile: Refer to note in patient chart for documentation of history and physical. Last Colonoscopy: 2013. Referring Physician: Sommer Marrero (Referring MD) Medicines: Midazolam 5 mg IV, Fentanyl 100 micrograms IV, Diphenhydramine 50 mg IV Complications: No immediate complications. Requesting Provider: Procedure: Pre-Anesthesia Assessment: - Prior to the procedure, a History and Physical was performed, and patient medications and allergies were reviewed. The patient is competent. The risks and benefits of the procedure and the sedation options and risks were discussed with the patient. All questions were answered and informed consent was obtained. Patient identification and proposed procedure were verified by the physician in the pre-procedure area. Mental Status Examination: alert and oriented. Airway Examination: normal oropharyngeal airway and neck mobility. Respiratory Examination: clear to auscultation. CV Examination: normal. Prophylactic Antibiotics: The patient does not require prophylactic antibiotics. Prior Anticoagulants: The patient has taken no anticoagulant or antiplatelet agents. ASA Grade Assessment: III - A patient with severe systemic disease. After reviewing the risks and benefits, the patient was deemed in satisfactory condition to undergo the procedure. The anesthesia plan was to use moderate sedation / analgesia (conscious sedation). Immediately prior to administration of medications, the patient was re-assessed for adequacy to receive sedatives. The heart rate, respiratory rate, oxygen saturations, blood pressure, adequacy of pulmonary ventilation, and response to care were monitored throughout the procedure. The physical status of the patient was re-assessed after the procedure. After I obtained informed consent, the scope was passed under direct vision. Throughout the procedure, the patient's blood pressure, pulse, and oxygen saturations were monitored continuously. The Colonoscope was introduced through the anus and advanced to the cecum, identified by the appendiceal orifice, ileocecal valve and palpation. The colonoscopy was performed without difficulty. The patient tolerated the procedure well. The quality of the bowel preparation was adequate to identify polyps greater than 5 mm in size. The appendiceal orifice and the rectum were photographed. Moderate Sedation: The administration of moderate sedation was initiated at 09:35. Moderate (conscious) sedation was personally administered by the endoscopist. The following parameters were monitored: oxygen saturation, heart rate, blood pressure, respiratory rate, EKG, adequacy of pulmonary ventilation, and response to care. Total physician intraservice time was 26 minutes. Findings: The perianal and digital rectal examinations were normal. Multiple small-mouthed diverticula were found in the sigmoid colon. Non-bleeding internal hemorrhoids were found. A 2 to 3 mm polyp was found in the transverse colon. The polyp was sessile. The polyp was removed with a cold biopsy forceps. Resection and retrieval were complete. Verification of patient identification for the specimen was done by the nurse. Estimated blood loss was minimal. Impression: - Diverticulosis in the sigmoid colon. - Non-bleeding internal hemorrhoids. - One 2 to 3 mm polyp in the transverse colon, removed with a cold biopsy forceps. Resect (more content not included)... PROVATION [facility] Radiology Study observation (narrative) [facility] HISTORY PHYSICALon HISTORY PHYSICAL HNO ID: [id number] Author: ANNMARIE PRIETO MD Service: General Surgery Author Type: Physician Type: H&P Filed: 02/28/2024 08:52 Note Text: HISTORY AND PHYSICAL Carisa Painting : 1955 REFERRING PHYSICIAN: Estuardo Acevedo (Cyndi) [place] [address] [address] CHIEF COMPLAINT: Patient presents with: Consult: Colonoscopy consultation. HPI: Carisa is a 68 year old male referred for endoscopy. Carisa notes due for screening colonoscopy. Carisa denies abdominal pain.. Carisa denies diarrhea. Carisa denies constipation. Carisa denies a change in bowel habits. Carisa denies melena. Carisa denies bright red blood per rectum. Carisa denies hemorrhoids. Carisa denies heartburn. Carisa denies dysphagia. Carisa denies a history of ulcers/ peptic ulcer disease. Carisa denies family history of colon issues. Medical history significant for HTN, HLD, WESTON. Carisa has undergone prior endoscopy. Colonoscopy in 2005 had 1 polyp, path unavailable, repeat colonoscopy in 2007 normal. Colonoscopy in 2013 which was normal. All colonoscopies with Dr. Prieto. CURRENT MEDICATIONS Current Outpatient Medications Medication Sig elderberry fruit (ELDERBERRY ORAL) Take 575 mg by mouth once daily. cholecalciferol (VITAMIN D-3) 5,000 unit tab Take 5,000 Units by mouth once daily. ferrous sulfate (IRON) 325 mg (65 mg iron) tablet Take 325 mg by mouth once daily. Cinnamon Bark (CINNAMON) 500 mg cap Take 500 mg by mouth two times a day. amLODIPine-Valsart an 5-320 mg per tablet Take 1 tablet by mouth once daily. atorvastatin (LIPITOR) 10 mg tablet Take 10 mg by mouth every other day. M-W-F VASCEPA capsule Take 2 g by mouth two times a day. pioglitazone (ACTOS) 30 mg tablet Take 30 mg by mouth once daily. MULTI-VITAMIN ORAL Take by mouth once daily. Ascorbic Fjky-Xazkhbpqq-Gdy (EMERGEN-C) 1,000 mg pwep Take by mouth once daily. lysine 500 mg tab Take 500 mg by mouth once daily. Vitamin E, dl, acetate, (VITAMIN E) 400 unit capsule Take 400 Units by mouth once daily. Saw [place] Fruit 450 mg cap Take 450 mg by mouth once daily. OTC NUTRITIONAL SUPPLEMENT Take 575 mg by mouth once daily. Black elderberry No current facility-administe red medications for this visit. ALLERGIES: Patient has no known allergies. PAST MEDICAL HISTORY PAST MEDICAL HISTORY Diagnosis Date Essential hypertension High cholesterol [place] (obstructive sleep apnea) Pre-diabetes PAST SURGICAL HISTORY PAST SURGICAL HISTORY Procedure Laterality Date COLONOSCOPY 2013 repeat 10 years PAST SURGICAL HISTORY OF 2001 uvulopalatopharyng oplasty FAMILY HISTORY FAMILY HISTORY Problem Relation Age of Onset Diabetes Mother Cancer Mother Heart Attack Mother Hypertension Mother Diabetes Father Pancreatic Cancer Father other (other) Sister down syndrome Diabetes Brother SOCIAL HISTORY Social History Tobacco Use Smoking status: Never Smokeless tobacco: Never Vaping Use Vaping status: Never Used Substance Use Topics Alcohol use: Yes Alcohol/week: 1.0 standard drink of alcohol Types: 1 Glasses of Wine (5oz) per week Comment: daily red wine Drug use: Never REVIEW OF SYMPTOMS: REVIEW OF SYSTEMS: General: The patient denies fatigue, denies weight loss, denies weight gain, denies feeling hot, and feelings of cold. Eyes: The patient denies glaucoma, denies eye injury/surgery, denies glasses or + contacts. Ear/Nose/Throat: The patient denies allergies, denies hayfever, denies ear infections, and denies bloody noses. Cardiovascular: The patient denies chest pain, denies heart disease, + high blood pressure, + high cholesterol, and denies poor circulation. Respiratory: The patient denies tuberculosis, denies pneumonia, denies frequent cough, denies shortness of breath, and denies coughing up blood. Gastrointestinal: The patient denies difficulty swallowing, denies acid reflux, denies ulcers, denies jaundice/hepatitis , denies gallbladder problems, denies vomiting, denies black or tarry stools, + hemorrhoids, denies bleeding from rectum, denies diverticulitis, denies constipation, denies diarrhea, denies loss of stool control, and denies hernias. Kidney/Bladder: The patient denies kidney stones, denies urine infections, and denies bloody urine. Skin: The patient denies a history of skin cancer, denies bleeding/changing moles, and denies a history of skin rash. Neurologic: The patient denies a history of epilepsy/convulsio ns, denies headaches, denies head/spinal injuries, and denies stroke/TIA. Psychiatric: The patient denies psychiatric medications, denies depression, and denies voices. Endocrine: The patient denies thyroid disorders, + pre-diabetes, and denies hormonal problems. Hematologic: The patient denies a history of bruising, denies bleeding, and denies anemia. Infections: The patient denies a history of measles and mumps, denies rheumatic fever, and (more content not included)... Normal [facility] NURSING PROGon 02-28-2024 NURSING PROG HNO ID: [id number] Author: APPLE WILLIS RN Service: ? Author Type: Registered Nurse Type: Nursing Progress Note Filed: 02/28/2024 10:16 Note Text: pt arrived to phase 2 resting on left side. SR up x 2, call light in reach. Apple Willis RN Normal [facility] SURGICAL PATHOLOGYon 024 CASE REPORT Normal [facility] Comment on above: Order Comment: Speci men Type: TISSUE SPECIMEN Ordering Facility: [facility] Address: [address] [place] [address] Result Comment: [facility] Pathology Report Case: [id number] Authorizing Provider: Annmarie Prieto MD Collected: 02/28/2024 09:55 AM Ordering Location: Ambulatory Surgery Received: 02/28/2024 02:29 PM Pathologist: Sharath Camarillo MD Specimen: Colon, Transverse, Polyp Performed By: #### S #### [facility] CLIA [id number] [address] [place] [address] LAB CLIA [id number] [address] [place] [address] DIAGNOSIS COMMENT There is no evidence of dysplasia or malignancy, including on multiple additional deeper levels. Normal [facility] Comment on above: Order Comment: Speci men Type: TISSUE SPECIMEN Ordering Facility: [facility] Address: [address] [place] [address] Performed By: #### S #### [facility] CLIA [id number] [address] [place] [address] LAB CLIA [id number] [address] [place] [address] FINAL DIAGNOSIS Normal [facility] Comment on above: Order Comment: Speci men Type: TISSUE SPECIMEN Ordering Facility: [facility] Address: [address] [place] [address] Result Comment: Curtis sverse colon polyp, biopsy: - Colonic mucosa with intramucosal lymphoid aggregate and minimal hyperplastic changes (see comment). JEL 03/03/2024 Performed By: #### S #### [facility] CLIA [id number] [address] [place] [address] OF [facility] LAB CLIA [id number] [address] [place] [address] OF [facility] FINAL PERFORMING LAB Normal [facility] Comment on above: Order Comment: Speci men Type: TISSUE SPECIMEN Ordering Facility: [facility] Address: [address] [place] [address] Result Comment: Diag nostic interpretation performed at [facility], [address] [place] [address] CLIA# [id number] Background Investigator: Quinn Villagran M.D. Performed By: #### S #### [facility] CLIA [id number] [address] [place] [address] [place] [facility] CLIA [id number] [address] [place] [address] [place] GROSS DESCRIPTION Normal [facility] Comment on above: Order Comment: Speci men Type: TISSUE SPECIMEN Ordering Facility: [facility] Address: [address] [place] [address] Result Comment: Sulema brady, Transverse, Polyp Received in formalin is one piece of dinh, soft tissue measuring 0.4 x 0.3 x 0.1 cm. Totally submitted in one cassette. [facility] February 28, 2024 8:16 PM Gross examination performed at [facility], [address] [place] [address] Performed By: #### S #### [facility] CLIA [id number] [address] [place] [address] STATES OF [facility] CLIA [id number] [address] [place] [address] [place] CNOVon 01-28-2024 CNOV Office Visit (GENSWS) -------- CARISA MCDONALD ([id number]) 1955 M Date Time Provider Department 01/28/24 11:00 AM SOMMER MARRERO GENBHAVYAS During your visit today, we recorded the following information about you: Temperature Pulse Blood pressure Weight 97.3 degrees 77/minute 136/76 101.9 kg Height 1.702 m Sommer Marrero APRN.ALEJANDRO 01/28/2024 11:41 AM Signed HISTORY AND PHYSICAL Carisa Mcdonald : 1955 REFERRING PHYSICIAN: Estuardo Acevedo (Connie) [address] [facility] [address] [facility] [address] CHIEF COMPLAINT: Patient presents with: Consult: Colonoscopy consultation. HPI: Carisa is a 68 year old male referred for endoscopy. Carisa notes due for screening colonoscopy. Carisa denies abdominal pain.. Carisa denies diarrhea. Carisa denies constipation. Carisa denies a change in bowel habits. Carisa denies melena. Carisa denies bright red blood per rectum. Carisa denies hemorrhoids. Carisa denies heartburn. Carisa denies dysphagia. Carisa denies a history of ulcers/ peptic ulcer disease. Carisa denies family history of colon issues. Medical history significant for HTN, HLD, [place]. Carisa has undergone prior endoscopy. Colonoscopy in 2004 had 1 polyp, path unavailable, repeat colonoscopy in 2007 normal. Colonoscopy in 2013 which was normal. All colonoscopies with Dr. Prieto. Current Outpatient Medications Medication Sig elderberry fruit (ELDERBERRY ORAL) Take 575 mg by mouth once daily. cholecalciferol (VITAMIN D-3) 5,000 unit tab Take 5,000 Units by mouth once daily. ferrous sulfate (IRON) 325 mg (65 mg iron) tablet Take 325 mg by mouth once daily. Cinnamon Bark (CINNAMON) 500 mg cap Take 500 mg by mouth two times a day. amLODIPine-Valsart an 5-320 mg per tablet Take 1 tablet by mouth once daily. atorvastatin (LIPITOR) 10 mg tablet Take 10 mg by mouth every other day. M-W-F VASCEPA capsule Take 2 g by mouth two times a day. pioglitazone (ACTOS) 30 mg tablet Take 30 mg by mouth once daily. MULTI-VITAMIN ORAL Take by mouth once daily. Ascorbic Acca-Udojkgweo-Yoe (EMERGEN-C) 1,000 mg pwep Take by mouth once daily. lysine 500 mg tab Take 500 mg by mouth once daily. Vitamin E, dl, acetate, (VITAMIN E) 400 unit capsule Take 400 Units by mouth once daily. Saw [place] Fruit 450 mg cap Take 450 mg by mouth once daily. OTC NUTRITIONAL SUPPLEMENT Take 575 mg by mouth once daily. Black elderberry No current facility-administe red medications for this visit. ALLERGIES: Patient has no known allergies. PAST MEDICAL HISTORY Diagnosis Date Essential hypertension High cholesterol [place] (obstructive sleep apnea) Pre-diabetes PAST SURGICAL HISTORY Procedure Laterality Date COLONOSCOPY 2014 repeat 10 years PAST SURGICAL HISTORY OF 2000 uvulopalatopharyng oplasty FAMILY HISTORY Problem Relation Age of Onset Diabetes Mother Cancer Mother Heart Attack Mother Hypertension Mother Diabetes Father Pancreatic Cancer Father other (other) Sister down syndrome Diabetes Brother Social History Tobacco Use Smoking status: Never Smokeless tobacco: Never Vaping Use Vaping status: Never Used Substance Use Topics Alcohol use: Yes Alcohol/week: 1.0 standard drink of alcohol Types: 1 Glasses of Wine (5oz) per week Comment: daily red wine Drug use: Never REVIEW OF SYMPTOMS: REVIEW OF SYSTEMS: General: The patient denies fatigue, denies weight loss, denies weight gain, denies feeling hot, and feelings of cold. Eyes: The patient denies glaucoma, denies eye injury/surgery, denies glasses or + contacts. Ear/Nose/Throat: The patient denies allergies, denies hayfever, denies ear infections, and denies bloody noses. Cardiovascular: The patient denies chest pain, denies heart disease, + high blood pressure, + high cholesterol, and denies poor circulation. Respiratory: The patient denies tuberculosis, denies pneumonia, denies frequent cough, denies shortness of breath, and denies coughing up blood. Gastrointestinal: The patient denies difficulty swallowing, denies acid reflux, denies ulcers, denies jaundice/hepatitis , denies gallbladder problems, denies vomiting, denies black or tarry stools, + hemorrhoids, denies bleeding from rectum, denies diverticulitis, denies constipation, denies diarrhea, denies loss of stool control, and denies hernias. Kidney/Bladder: The patient denies kidney stones, denies urine infections, and denies bloody urine. Skin: The patient denies a history of skin cancer, denies bleeding/changing moles, and denies a history of skin rash. Neurologic: The patient denies a history of epilepsy/convulsio ns, denies headaches, denies head/spinal injuries, and denies stroke/TIA. Psychiatric: The patient denies psychiatric medications, denies depression, and denies voices. Endocrine: The patient denies thyroid disorders, + pre-diabetes, and denies ho (more content not included)... Normal [facility] Ruth Protein Electroph, Son 11-07 Albumin [Mass/Vol] 3.9 g/dL Normal 2.9-4.4 [facility] Comment on above: Order Comment: Order Date: 11/07/23 Order Info: 0060-1 - PROEL Performed By: #### L 509.1000, L3100.3450, L506.1000 #### [facility] [address] [place], [address] Albumin/Globulin [Mass ratio] 1.3 {ratio} Normal 0.7-1.[address] [facility] Comment on above: Order Comment: Order Date: 11/07/23 Order Info: 0060-1 - PROEL Performed By: #### L 509.1000, L3100.3450, L506.1000 #### [facility] [address] [place], [address] ALPHA-1 GLOBUL 0.2 g/dL Normal 0.0-0.[address] [facility] Comment on above: Order Comment: Order Date: 11/07/23 Order Info: 0060-1 - PROEL Performed By: #### L 509.1000, L3100.3450, L506.1000 #### [facility] [address] [place], [address] ALPHA-2 GLOBUL 0.7 g/dL Normal 0.4-1.[address] [facility] Comment on above: Order Comment: Order Date: 11/07/23 Order Info: 0060-1 - PROEL Performed By: #### L 509.1000, L3100.3450, L506.1000 #### [facility] [address] [place], [address] BETA GLOBULIN 1.1 g/dL Normal 0.7-1.[address] [facility] Comment on above: Order Comment: Order Date: 11/07/23 Order Info: 0060-1 - PROEL Performed By: #### L 509.1000, L3100.3450, L506.1000 #### [facility] [address] [place], [address] GAMMA GLOBULIN 0.9 g/dL Normal 0.4-1.[address] [facility] Comment on above: Order Comment: Order Date: 11/07/23 Order Info: 0060-1 - PROEL Performed By: #### L 509.1000, L3100.3450, L506.1000 #### [facility] [address] [place], [address] Globulin (S) [Mass/Vol] 2.9 g/dL Normal 2.2-3.9 [facility] Comment on above: Order Comment: Order Date: 11/07/23 Order Info: 0060-1 - PROEL Performed By: #### L 509.1000, L3100.3450, L506.1000 #### [facility] [address] [place], [address] INTERPRETATION Comment Normal . [facility] Comment on above: Order Comment: Order Date: 11/07/23 Order Info: 0060-1 - PROEL Result Comment: Prot ein electrophoresis scan will follow via computer, mail, or building insulation supervisor delivery. Performed By: #### L 509.1000, L3100.3450, L506.1000 #### [facility] [address] [place], [address] M-SPIKE Not Observed Normal Not Observed [facility] Comment on above: Order Comment: Order Date: 11/07/23 Order Info: 0060-1 - PROEL Performed By: #### L 509.1000, L3100.3450, L506.1000 #### [facility] [address] [place], [address] NOTE: Comment Normal . [facility] Comment on above: Order Comment: Order Date: 11/07/23 Order Info: 0060-1 - PROEL Result Comment: The SPE pattern appears unremarkable. Evidence of monoclonal protein is not apparent. Performed at: [address] [id number] Packing Inspector: Dakotah Khoury PhD, Phone: [phone] Performed By: #### L 509.1000, L3100.3450, L506.1000 #### [facility] [address] [place], [place], [address] Protein [Mass/Vol] 6.8 g/dL Normal 6.0-8.5 [facility] Comment on above: Order Comment: Order Date: 11/07/23 Order Info: 0060-1 - PROEL Performed By: #### L 509.1000, L3100.3450, L506.1000 #### [facility] [address] [place], [address] PTHINon 11-07-2023 PTH 68.7 pg/mL Normal 18.4-80.[address] [facility] Comment on above: Order Comment: Order Date: 11/07/23 Order Info: 0565-1 - PTHIN Performed By: #### L 509.1000, L3100.3450, L506.1000 #### [facility] [address] [place], [place], [address] Vitamin D,25 Hydroxyon 11-06 Vitamin D 25-OH 59.5 ng/mL Normal [facility] Comment on above: Order Comment: Order Date: 11/07/23 Order Info: [id number] - VITD25 Result Comment: Chikis min D 25(OH) Status Range Deficiency <20 ng/mL (50nmol/L) Insufficiency 20 - 30 ng/mL (50 - 75 nmol/L) Sufficiency 30 - 100 ng/mL (75 - 250 nmol/L) Toxicity >100 ng/mL (>250 nmol/L) Performed By: #### L 509.1000, L3100.3450, L506.1000 #### [facility] [address] [place], [place], [address] CT ABDOMEN/PELVIS W/O CONTRA STon 10-23-2023 CT ABDOMEN/PELVIS W/O CONTRAST ORIGINAL EXAMINATION: CT OF THE ABDOMEN AND PELVIS WITHOUT CONTRAST10/23/2023 7:55 am TECHNIQUE: CT of the abdomen and pelvis was performed without the administration of intravenous contrast. Multiplanar reformatted images are provided for review. Automated exposure control, iterative reconstruction, and/or weight based adjustment of the mA/kV was utilized to reduce the radiation dose to as low as reasonably achievable. COMPARISON: None HISTORY: ORDERING SYSTEM PROVIDED HISTORY: Reason for Exam: RT FLANK PAIN FINDINGS: The visualized lower thoracic structures are unremarkable. No acute osseous or soft tissue abnormality. Small fat containing umbilical hernia. Small fat containing right inguinal hernia. Mild multilevel degenerative changes of the visualized spine. The superior most aspect of the liver is excluded and can not be visualized. The visualized aspects of the liver appear unremarkable. The pancreas, spleen, adrenal glands are unremarkable. No evidence of hydronephrosis. Left parapelvic cyst are noted. No renal calculi are present bilaterally. 1.1 cm right lower pole hypodensity likely represents a renal cyst. No suspicious renal lesion is seen. The visualized esophagus, stomach, and duodenum are unremarkable. The visualized aorta is nonaneurysmal. The GI tract exhibits no acute abnormalities. Unremarkable appendix. Mild diverticulosis without evidence diverticulitis. No pathologically enlarged retroperitoneal, mesenteric, or pelvic lymph nodes are identified. There is no free intraperitoneal air or fluid. The urinary bladder is well-distended without wall thickening or focal mass. The prostate is moderately enlarged. IMPRESSION: No acute process. Mild diverticulosis without evidence of diverticulitis. I have personally reviewed the images of this examination and agree with the resident's findings and interpretation. Interpreted by: Antonio Jay MD Preliminary Report By: Bhavesh Anderson Electronically signed By Antonio Jay MD Dictated Date: 10/23/2023 9:28:00 AM Prelim Date: 10/23/2023 10:42:02 AM Sign Date: 10/23/2023 10:42:02 AM Ordering Provider: ESTUARDO Tariq [facility] ([place]) Protein Arabella, Son 10-22 Albumin [Mass/Vol] 3.7 g/dL Normal 2.9-4.4 [facility] Comment on above: Order Comment: Order Date: 10/21/23 Order Info: 0060-1 - PROEL Performed By: #### L 100.0100, L500.4050, L501.6710, M100.2200, L400.0001, L3100.3450 #### [facility] [address] [place], [address] Albumin/Globulin [Mass ratio] 1.3 {ratio} Normal 0.7-1.[address] [facility] Comment on above: Order Comment: Order Date: 10/21/23 Order Info: 0060-1 - PROEL Performed By: #### L 100.0100, L500.4050, L501.6710, M100.2200, L400.0001, L3100.3450 #### [facility] [address] [place], [address] ALPHA-1 GLOBUL 0.2 g/dL Normal 0.0-0.[address] [facility] Comment on above: Order Comment: Order Date: 10/21/23 Order Info: 0060-1 - PROEL Performed By: #### L 100.0100, L500.4050, L501.6710, M100.2200, L400.0001, L3100.3450 #### [facility] [address] [place], [address] ALPHA-2 GLOBUL 0.7 g/dL Normal 0.4-1.[address] [facility] Comment on above: Order Comment: Order Date: 10/21/23 Order Info: 0060-1 - PROEL Performed By: #### L 100.0100, L500.4050, L501.6710, M100.2200, L400.0001, L3100.3450 #### [facility] [address] [place], [address] BETA GLOBULIN 0.9 g/dL Normal 0.7-1.[address] [facility] [address] [facility] [facility] Comment on above: Order Comment: Order Date: 10/21/23 Order Info: 0060-1 - PROEL Performed By: #### L 100.0100, L500.4050, L501.6710, M100.2200, L400.0001, L3100.3450 #### [facility] [address] [place], [address] GAMMA GLOBULIN 1.2 g/dL Normal 0.4-1.[address] [facility] Comment on above: Order Comment: Order Date: 10/21/23 Order Info: 0060-1 - PROEL Performed By: #### L 100.0100, L500.4050, L501.6710, M100.2200, L400.0001, L3100.3450 #### [facility] [address] [place], [address] Globulin (S) [Mass/Vol] 2.9 g/dL Normal 2.2-3.9 [facility] Comment on above: Order Comment: Order Date: 10/21/23 Order Info: 0060-1 - PROEL Performed By: #### L 100.0100, L500.4050, L501.6710, M100.2200, L400.0001, L3100.3450 #### [facility] [address] [place], [address] INTERPRETATION Comment Normal . [facility] Comment on above: Order Comment: Order Date: 10/21/23 Order Info: 0060-1 - PROEL Result Comment: Prot ein electrophoresis scan will follow via computer, mail, or building insulation supervisor delivery. Performed By: #### L 100.0100, L500.4050, L501.6710, M100.2200, L400.0001, L3100.3450 #### [facility] [address] [place], [address] M-SPIKE 0.5 g/dL Abnormal Not Observed [facility] Comment on above: Order Comment: Order Date: 10/21/23 Order Info: 0060-1 - PROEL Performed By: #### L 100.0100, L500.4050, L501.6710, M100.2200, L400.0001, L3100.3450 #### [facility] [address] [place], [place], [id number] NOTE: Comment Normal . [facility] Comment on above: Order Comment: Order Date: 10/21/23 Order Info: 0060-1 - PROEL Result Comment: The SPE pattern demonstrates a single peak (M-spike) in the gamma region which may represent monoclonal protein. This peak may also be caused by circulating immune complexes, cryoglobulins, C-reactive protein, fibrinogen or hemolysis. If clinically indicated, the presence of a monoclonal gammopathy may be confirmed by immuno-fixation, as well as an evaluation of the urine for the presence of Bence-Schaffer protein. Performed at: [address] [id number] Packing Inspector: Dakotah Khoury PhD, Phone: [phone] Performed By: #### L 100.0100, L500.4050, L501.6710, M100.2200, L400.0001, L3100.3450 #### [facility] [address] [place], [place], [id number] Protein [Mass/Vol] 6.6 g/dL Normal 6.0-8.5 [facility] Comment on above: Order Comment: Order Date: 10/21/23 Order Info: 0060-1 - PROEL Performed By: #### L 100.0100, L500.4050, L501.6710, M100.2200, L400.0001, L3100.3450 #### [facility] [address] [place], [address] Urine Cultureon 10-22-2023 [facility] Order Date: 10/21/23 Order Info: 630-4 - CUUR MIDSTREAM Culture exhibits no growth. Normal [facility] Comment on above: Performed By: #### L 100.0100, L500.4050, L501.6710, M100.2200, L400.0001, L3100.3450 #### [facility] [address] [place], [address] CBC W/Diff, Automatedon 07-1 5-202 Absolute Lymph 1.32 X10 3/uL Normal 0.83-4.[address] [facility] Comment on above: Order Comment: Order Date: 10/21/23 Order Info: 01807-07 - CBCD Performed By: #### L 100.0100, L500.4050, L501.6710, M100.2200, L400.0001, L3100.3450 #### [facility] [address] [place], [place], [id number] [phone] Absolute Neut 3.9 X10 3/uL Normal 2.0-7.[address] [facility] Comment on above: Order Comment: Order Date: 10/21/23 Order Info: 01807-07 - CBCD Performed By: #### L 100.0100, L500.4050, L501.6710, M100.2200, L400.0001, L3100.3450 #### [facility] [address] [place], [place], [address] [phone] Basophils/100 WBC (Bld) 0.5 % Normal 0-1 [facility] Comment on above: Order Comment: Order Date: 10/21/23 Order Info: 01807-07 - CBCD Performed By: #### L 100.0100, L500.4050, L501.6710, M100.2200, L400.0001, L3100.3450 #### [facility] [address] [place], [place], [id number] [phone] Eosinophils/100 WBC (Bld) 1.7 % Normal 0-[address] [facility] Comment on above: Order Comment: Order Date: 10/21/23 Order Info: 01807-07 - CBCD Performed By: #### L 100.0100, L500.4050, L501.6710, M100.2200, L400.0001, L3100.3450 #### [facility] [address] [place], [place], [phone] Erythrocyte distribution width (RBC) [Ratio] 14.0 % Normal 11.6-14.[address] [facility] Comment on above: Order Comment: Order Date: 10/21/23 Order Info: 0184-1 - CBCD Performed By: #### L 100.0100, L500.4050, L501.6710, M100.2200, L400.0001, L3100.3450 #### [facility] [address] [place], [address] Hematocrit (Bld) [Volume fraction] 42.1 % Normal 40-[address] [facility] Comment on above: Order Comment: Order Date: 10/21/23 Order Info: 0184-1 - CBCD Performed By: #### L 100.0100, L500.4050, L501.6710, M100.2200, L400.0001, L3100.3450 #### [facility] [address] [place], [place], [id number] Hemoglobin (Bld) [Mass/Vol] 14.2 g/dL Normal 13.0-16. [address] [facility] Comment on above: Order Comment: Order Date: 10/21/23 Order Info: 0184- - CBCD Performed By: #### L 100.0100, L500.4050, L501.6710, M100.2200, L400.0001, L3100.3450 #### [facility] [address] [place], [place], [id number] [phone] IG% 0.200 Normal 0.0-0.[address] [facility] Comment on above: Order Comment: Order Date: 10/21/23 Order Info: 0184-1 - CBCD Result Comment: IG% - Immature Granulocytes (promyelocytes, myelocytes and metamyelocytes) > 1% indicates that a LEFT SHIFT is Present. Performed By: #### L 100.0100, L500.4050, L501.6710, M100.2200, L400.0001, L3100.3450 #### [facility] [address] [place], [address] Lymphocytes/100 WBC (Bld) 22.1 % Normal 19-[address] [facility] Comment on above: Order Comment: Order Date: 10/21/23 Order Info: 0184- - CBCD Performed By: #### L 100.0100, L500.4050, L501.6710, M100.2200, L400.0001, L3100.3450 #### [facility] [address] [place], [address] MCH (RBC) [Entitic mass] 31.9 pg Normal 27.0-32.[address] [facility] Comment on above: Order Comment: Order Date: 10/21/23 Order Info: 018- - CBCD Performed By: #### L 100.0100, L500.4050, L501.6710, M100.2200, L400.0001, L3100.3450 #### [facility] [address] [place], [address] MCHC (RBC) [Mass/Vol] 33.7 g/dL Normal 32-36 [facility] Comment on above: Order Comment: Order Date: 10/21/23 Order Info: 018- - CBCD Performed By: #### L 100.0100, L500.4050, L501.6710, M100.2200, L400.0001, L3100.3450 #### [facility] [address] [place], [address] MCV (RBC) [Entitic vol] 94.6 fL High 80-94 [facility] Comment on above: Order Comment: Order Date: 10/21/23 Order Info: 0184- - CBCD Performed By: #### L 100.0100, L500.4050, L501.6710, M100.2200, L400.0001, L3100.3450 #### [facility] [address] [place], [address] Monocytes/100 WBC (Bld) 9.9 % Normal 0-10 [facility] Comment on above: Order Comment: Order Date: 10/21/23 Order Info: 0184-1 - CBCD Performed By: #### L 100.0100, L500.4050, L501.6710, M100.2200, L400.0001, L3100.3450 #### [facility] [address] [place], [address] Neutrophils/100 WBC (Bld) 65.6 % Normal 47-[address] [facility] Comment on above: Order Comment: Order Date: 10/21/23 Order Info: 0184-1 - CBCD Performed By: #### L 100.0100, L500.4050, L501.6710, M100.2200, L400.0001, L3100.3450 #### [facility] [address] [place], [address] Nucleated RBC (Bld) [#/Vol] 0 10*3/uL Normal 0-[address] [facility] Comment on above: Order Comment: Order Date: 10/21/23 Order Info: 0184-1 - CBCD Performed By: #### L 100.0100, L500.4050, L501.6710, M100.2200, L400.0001, L3100.3450 #### [facility] [address] [place], [address] Platelet mean volume (Bld) [Entitic vol] 10.1 fL Normal 6.2-12.[address] [facility] Comment on above: Order Comment: Order Date: 10/21/23 Order Info: 0184-1 - CBCD Performed By: #### L 100.0100, L500.4050, L501.6710, M100.2200, L400.0001, L3100.3450 #### [facility] [address] [place], [address] Platelets (Bld) [#/Vol] 252 10*3/uL Normal 150-[address] [facility] Comment on above: Order Comment: Order Date: 10/21/23 Order Info: 0184-1 - CBCD Performed By: #### L 100.0100, L500.4050, L501.6710, M100.2200, L400.0001, L3100.3450 #### [facility] [address] [place], [address] RBC (Bld) [#/Vol] 4.45 10*6/uL Low 4.6-6.2 [facility] Comment on above: Order Comment: Order Date: 10/21/23 Order Info: 0184-1 - CBCD Performed By: #### L 100.0100, L500.4050, L501.6710, M100.2200, L400.0001, L3100.3450 #### [facility] [address] [place], [address] RDW SD 49.1 fl High 35.1-43.[address] [facility] Comment on above: Order Comment: Order Date: 10/21/23 Order Info: 0184-1 - CBCD Performed By: #### L 100.0100, L500.4050, L501.6710, M100.2200, L400.0001, L3100.3450 #### [facility] [address] [place], [address] WBC (Bld) [#/Vol] 6.0 10*3/uL Normal 4.4-11.0 [facility] Comment on above: Order Comment: Order Date: 10/21/23 Order Info: 0184-1 - CBCD Performed By: #### L 100.0100, L500.4050, L501.6710, M100.2200, L400.0001, L3100.3450 #### [facility] [address] [place], [address] CRPon 10-21-2023 C-REACTIVE PROT 3.87 mg/L High 0.0-3.[address] [facility] Comment on above: Order Comment: Order Date: 10/21/23 Order Info: 0786-1 - CMP Order Info: 23876-8 - CRP Order Info: 4 - CHERI Result Comment: C-Re active Protein (CRP) provides useful information for the diagnosis, therapy and monitoring of inflammatory processes and associated diseases. For the evaluation of Relative Risk for Cardiovascular Disease, a High Sensitivity CRP (HSCRP) should be ordered. Performed By: #### L 100.0100, L500.4050, L501.6710, M100.2200, L400.0001, L3100.3450 #### [facility] [address] [place], [address] Comprehensive Metabolic Prof ilon 10-21-2023 Albumin [Mass/Vol] 3.6 g/dL Normal 3.2-5.0 [facility] Comment on above: Order Comment: Order Date: 10/21/23 Order Info: 07 - CMP Order Info: [id number] - CRP Order Info: 2275-07 - CHERI Performed By: #### L 100.0100, L500.4050, L501.6710, M100.2200, L400.0001, L3100.3450 #### [facility] [address] [place], [address] Albumin/Globulin [Mass ratio] 1.1 {ratio} Normal 0.9-2.[address] [facility] Comment on above: Order Comment: Order Date: 10/21/23 Order Info: 0786- - CMP Order Info: [id number] - CRP Order Info: 2275-07 - CHERI Performed By: #### L 100.0100, L500.4050, L501.6710, M100.2200, L400.0001, L3100.3450 #### [facility] [address] [place], [address] ALK P 81 U/L Normal 45-[address] [facility] Comment on above: Order Comment: Order Date: 10/21/23 Order Info: 0786-1 - CMP Order Info: [id number] - CRP Order Info: 4 - CHERI Performed By: #### L 100.0100, L500.4050, L501.6710, M100.2200, L400.0001, L3100.3450 #### [facility] [address] [place], [address] ALT [Catalytic activity/Vol] 26 U/L Normal 16-[address] [facility] Comment on above: Order Comment: Order Date: 10/21/23 Order Info: 0786-1 - CMP Order Info: [id number] - CRP Order Info: 2275-07 - CHERI Performed By: #### L 100.0100, L500.4050, L501.6710, M100.2200, L400.0001, L3100.3450 #### [facility] [address] [place], [address] AST [Catalytic activity/Vol] 23 U/L Normal 15-[address] [facility] Comment on above: Order Comment: Order Date: 10/21/23 Order Info: 0786-1 - CMP Order Info: [id number] - CRP Order Info: 2275-07 - CHERI Performed By: #### L 100.0100, L500.4050, L501.6710, M100.2200, L400.0001, L3100.3450 #### [facility] [address] [place], [address] Bilirubin [Mass/Vol] 0.40 mg/dL Normal 0.20-1.00 [facility] Comment on above: Order Comment: Order Date: 10/21/23 Order Info: 0786-1 - CMP Order Info: 96798-5 - CRP Order Info: 2275-07 - CHERI Result Comment: For patients on eltrombopag therapy, use of Dimension [place] TBIL is not recommended. Performed By: #### L 100.0100, L500.4050, L501.6710, M100.2200, L400.0001, L3100.3450 #### [facility] [address] [place], [address] BUN/CRE 24.0 RATIO High 10-[address] [facility] Comment on above: Order Comment: Order Date: 10/21/23 Order Info: 785- - CMP Order Info: 80937-0 - CRP Order Info: 2275-07 - CHERI Performed By: #### L 100.0100, L500.4050, L501.6710, M100.2200, L400.0001, L3100.3450 #### [facility] [address] [place], [address] CA,Total 9.2 mg/dL Normal 8.5-10.[address] [facility] Comment on above: Order Comment: Order Date: 10/21/23 Order Info: 785-04 - CMP Order Info: [id number] - CRP Order Info: 2275-07 - CHERI Performed By: #### L 100.0100, L500.4050, L501.6710, M100.2200, L400.0001, L3100.3450 #### [facility] [address] [place], [address] Chloride [Moles/Vol] 106 mmol/L Normal 98-107 [facility] Comment on above: Order Comment: Order Date: 10/21/23 Order Info: 785-04 - CMP Order Info: 89340-0 - CRP Order Info: 2275-07 - CHERI Performed By: #### L 100.0100, L500.4050, L501.6710, M100.2200, L400.0001, L3100.3450 #### [facility] [address] [place], [address] CO2 [Moles/Vol] 27.0 mmol/L Normal 21.0-32.[address] [facility] Comment on above: Order Comment: Order Date: 10/21/23 Order Info: 07 - CMP Order Info: 51767-0 - CRP Order Info: 2275-07 - CHERI Performed By: #### L 100.0100, L500.4050, L501.6710, M100.2200, L400.0001, L3100.3450 #### [facility] [address] [place], [address] Creatinine [Mass/Vol] 1.04 mg/dL Normal 0.70-1.30 [facility] Comment on above: Order Comment: Order Date: 10/21/23 Order Info: 0786-1 - CMP Order Info: 47216-5 - CRP Order Info: 2275-07 - CHERI Result Comment: The validity of the calculated GFR GFRAA in patients over 70 years has not been determined. Clinical correlation is essential. Performed By: #### L 100.0100, L500.4050, L501.6710, M100.2200, L400.0001, L3100.3450 #### [facility] [address] [place], [address] EST GFR - AA 91 mL/min Normal >[address] [facility] Comment on above: Order Comment: Order Date: 10/21/23 Order Info: 07 - CMP Order Info: [id number] - CRP Order Info: 2275-07 - CHERI Result Comment: Afri can [place] GFR Calc Performed By: #### L 100.0100, L500.4050, L501.6710, M100.2200, L400.0001, L3100.3450 #### [facility] [address] [place], [address] GAP 6 Normal 5-[address] [facility] Comment on above: Order Comment: Order Date: 10/21/23 Order Info: 0786- - CMP Order Info: [id number] - CRP Order Info: 2275-07 - CHERI Performed By: #### L 100.0100, L500.4050, L501.6710, M100.2200, L400.0001, L3100.3450 #### [facility] [address] [place], [address] GFR/1.73 sq M.predicted among non-blacks MDRD (S/P/Bld) [Vol rate/Area] 75 mL/min/{1.73_m2} Normal >[address] [facility] Comment on above: Order Comment: Order Date: 10/21/23 Order Info: 785- - CMP Order Info: [id number] - CRP Order Info: 2275-07 - CHERI Result Comment: Non- GFR Calc Performed By: #### L 100.0100, L500.4050, L501.6710, M100.2200, L400.0001, L3100.3450 #### [facility] [address] [place], [address] Globulin (S) [Mass/Vol] 3.4 g/dL Normal 2.2-4.2 [facility] Comment on above: Order Comment: Order Date: 10/21/23 Order Info: 785-04 - CMP Order Info: [id number] - CRP Order Info: 2275-07 - CHERI Performed By: #### L 100.0100, L500.4050, L501.6710, M100.2200, L400.0001, L3100.3450 #### [facility] [address] [place], [address] Glucose [Mass/Vol] 98 mg/dL Normal 74-106 [facility] Comment on above: Order Comment: Order Date: 10/21/23 Order Info: 785-04 - CMP Order Info: [id number] - CRP Order Info: 2275-07 - CHERI Performed By: #### L 100.0100, L500.4050, L501.6710, M100.2200, L400.0001, L3100.3450 #### [facility] [address] [place], [address] Potassium [Moles/Vol] 4.3 mmol/L Normal 3.5-5.1 [facility] Comment on above: Order Comment: Order Date: 10/21/23 Order Info: 07 - CMP Order Info: [id number] - CRP Order Info: 2275-07 - CHERI Performed By: #### L 100.0100, L500.4050, L501.6710, M100.2200, L400.0001, L3100.3450 #### [facility] [address] [place], [address] Sodium [Moles/Vol] 139 mmol/L Normal 136-145 [facility] Comment on above: Order Comment: Order Date: 10/21/23 Order Info: 0786-1 - CMP Order Info: 50255-7 - CRP Order Info: 2275-07 - CHERI Performed By: #### L 100.0100, L500.4050, L501.6710, M100.2200, L400.0001, L3100.3450 #### [facility] [address] [place], [address] T PROT 7.0 g/dL Normal 6.4-8.[address] [facility] Comment on above: Order Comment: Order Date: 10/21/23 Order Info: 0786 - CMP Order Info: [id number] - CRP Order Info: 2275-07 - CHERI Performed By: #### L 100.0100, L500.4050, L501.6710, M100.2200, L400.0001, L3100.3450 #### [facility] [address] [place], [address] Urea nitrogen [Mass/Vol] 25 mg/dL High 7-[address] [facility] Comment on above: Order Comment: Order Date: 10/21/23 Order Info: 0786-1 - CMP Order Info: [id number] - CRP Order Info: 2275-07 - CHERI Performed By: #### L 100.0100, L500.4050, L501.6710, M100.2200, L400.0001, L3100.3450 #### [facility] [address] [place], [address] Ferritinon 10-21-2023 Ferritin [Mass/Vol] 28 ng/mL Normal 26-388 [facility] Comment on above: Order Comment: Order Date: 10/21/23 Order Info: 0786-1 - CMP Order Info: 84947-6 - CRP Order Info: 2276-4 - CHERI Performed By: #### L 503.6550 #### [facility] [address] [place], [address] Urinalysis, Completeon 10-20 [place] OX CRYSTAL RARE Normal [facility] Comment on above: Order Comment: Order Date: 10/21/23 Order Info: [id number] [facility] EMPLOYMENT ATTORNEY TO SPECIFY Performed By: #### L 100.0100, L500.4050, L501.6710, M100.2200, L400.0001, L3100.3450 #### [facility] [address] [place], [address] BACTERIA 0 SEEN Normal None Seen [facility] Comment on above: Order Comment: Order Date: 10/21/23 Order Info: [id number] [facility] [employer] ATTORNEY TO SPECIFY Performed By: #### L 100.0100, L500.4050, L501.6710, M100.2200, L400.0001, L3100.3450 #### [facility] [address] [place], [address] EPI,SQUAMOUS 0 SEEN Normal 0-[address] [facility] Comment on above: Order Comment: Order Date: 10/21/23 Order Info: [id number] [facility] [employer] ATTORNEY TO SPECIFY Performed By: #### L 100.0100, L500.4050, L501.6710, M100.2200, L400.0001, L3100.3450 #### [facility] [address] [place], [address] Mucus Ql (Urine sed) 0 SEEN Normal [facility] Comment on above: Order Comment: Order Date: 10/21/23 Order Info: [id number] [facility] [employer] ATTORNEY TO SPECIFY Performed By: #### L 100.0100, L500.4050, L501.6710, M100.2200, L400.0001, L3100.3450 #### [facility] [address] [place], [place], [address] RBC 0 SEEN Normal 0-[address] [facility] Comment on above: Order Comment: Order Date: 10/21/23 Order Info: [id number] - [facility] EMPLOYMENT ATTORNEY TO SPECIFY Performed By: #### L 100.0100, L500.4050, L501.6710, M100.2200, L400.0001, L3100.3450 #### [facility] [address] [place], [address] WBC 0 SEEN Normal 0-[address] [facility] Comment on above: Order Comment: Order Date: 10/21/23 Order Info: [id number] - [facility] EMPLOYMENT ATTORNEY TO SPECIFY Performed By: #### L 100.0100, L500.4050, L501.6710, M100.2200, L400.0001, L3100.3450 #### [facility] [address] [place], [place], [address] Absolute lymphocyte countOrd ered By: Estuardo Acevedo on 05-02-2023 Lymphocytes Auto (Unsp spec) [#/Vol] 1.05 10*3/uL 0.83-4.[address] [facility] Automated lymphocyte count a s percentage of total leukocytesOrdered By: Estuardo Acevedo on 05-02-2023 Lymphocytes/100 WBC Auto (Unsp spec) 20.8 % 19-[address] [facility] Basophil percentageOrdered B y: Estuardo Acevedo on 05-02-2023 Basophils/100 WBC (Bld) 0.4 % 0-1 [facility] Bilirubin [Mass/Vol] 0.70 mg/dL 0.20-1.00 [facility] Comment on above: For patients on eltr ombopag therapy, use of Dimension [place] TBIL is not recommended. Chloride [Moles/Vol] 108 mmol/L 98-107 [facility] Cholesterol [Mass/Vol] 181 mg/dL <200 [facility] Comment on above: <200 mg/dL Desirable 200-240 mg/dL Borderline >240 mg/dL High Risk Eosinophils/100 WBC (Bld) 1.4 % 0-[address] [facility] Glucose [Mass/Vol] 89 mg/dL 74-106 [facility] Hemoglobin (Bld) [Mass/Vol] 14.1 g/dL 13.0-16. [address] [facility] Monocytes/100 WBC (Bld) 8.3 % 0-10 [facility] Neutrophils (Bld) [#/Vol] 3.5 10*3/uL 2.0-7.[address] [facility] Neutrophils/100 WBC (Bld) 68.9 % 47-[address] [facility] Potassium [Moles/Vol] 3.9 mmol/L 3.5-5.1 [facility] Protein [Mass/Vol] 6.9 g/dL 6.4-8.2 [facility] Sodium [Moles/Vol] 138 mmol/L 136-145 [facility] Triglyceride [Mass/Vol] 82 mg/dL <199 [facility] Comment on above: The drugs N-Acetylcy steine and Metamizole may falsely depress this assay.Serum Triglycerides Reference Interval Normal <150 mg/dL Borderline high 150 - 199 mg/dL High 200 - 499 mg/dL Very High > or = 500 mg/dL WBC (Bld) [#/Vol] 5.1 10*3/uL 4.4-11.0 [facility] Determination of erythrocyte mean corpuscular volume (MCV)Ordered By: Estuardo Acevedo on 05-02-2023 MCV (RBC) [Entitic vol] 92.9 fL 80-94 [facility] Erythrocyte distribution wid th ratioOrdered By: Estuardo Acevedo on 05-02-2023 Erythrocyte distribution width (RBC) [Ratio] 15.0 % 11.6-14.[address] [facility] Erythrocyte distribution wid th standard deviationOrdered By: Estuardo Acevedo on 05-02-2023 Erythrocyte distribution width (RBC) [Entitic vol] 51.4 fL 35.1-43.9 [facility] Hematocrit Auto (Bld) [Volum e fraction]Ordered By: Estuardo Acevedo on 05-02-2023 Hematocrit (Bld) [Volume fraction] 42.9 % 40-[address] [facility] High density lipoprotein (HD L) measurementOrdered By: Estuardo Acevedo on 05-02-2023 Cholesterol in HDL (Body fld) [Mass/Vol] 60 mg/dL >[address] [facility] Comment on above: The drugs N-Acetylcy steine and Metamizole may falsely depress this assay. Reference Range HDL <40 mg/dL Low HDL Cholesterol HDL >or= 60 mg/dL High HDL Cholesterol Immature granulocytes/100 WB C Auto (Bld)Ordered By: Estuardo Acevedo on 05-02-2023 Immature granulocytes/100 WBC (Bld) 0.200 % 0.0-0.[address] [facility] Comment on above: IG% - Immature Granu locytes (promyelocytes, myelocytes and metamyelocytes) > 1% indicates that a LEFT SHIFT is Present. Laboratory - Chemistry and C hemistry - challengeOrdered By: Estuardo Acevedo on 05-02-2023 Albumin/Globulin [Mass ratio] 1.2 {ratio} 0.9-2.[address] [facility] ALP [Catalytic activity/Vol] 80 U/L 45-[address] [facility] ALT [Catalytic activity/Vol] 31 U/L 16-[address] [facility] CO2 [Moles/Vol] 27.0 mmol/L 21.0-32.[address] [facility] Ferritin [Mass/Vol] 16 ng/mL 26-388 [facility] Globulin (S) [Mass/Vol] 3.1 g/dL 2.2-4.2 [facility] Urea nitrogen/Creatinine [Mass ratio] 18.9 mg/mg 10-[address] [facility] Laboratory - Hematology and Cell countsOrdered By: Estuardo Acevedo on 05-02-2023 MCH (RBC) [Entitic mass] 30.5 pg 27.0-32.[address] [facility] MCHC (RBC) [Mass/Vol] 32.9 g/dL 32-36 [facility] Nucleated RBC/100 WBC (Bld) [Ratio] 0 % 0-[address] [facility] Platelets (Bld) [#/Vol] 270 10*3/uL 150-[address] [facility] Low density lipoprotein (LDL ) cholesterol measurementOrdered By: Estuardo Acevedo on 05-02-2023 Cholesterol in LDL (Body fld) [Moles/Vol] 105 mg/dL 0-[address] [facility] No Panel InformationOrdered By: Estuardo Acevedo on 05-02-2023 Estimated GFR (MDRD) Amer 76 mL/min >[address] [facility] Comment on above: GFR Calc Estimated GFR (MDRD) Non-Af Amer 63 mL/min >[address] [facility] Comment on above: Non- GFR Calc Platelet mean volume Brendon-Ec ker (Bld) [Entitic vol]Ordered By: Estuardo Acevedo on 05-02-2023 Platelet mean volume (Bld) [Entitic vol] 10.1 fL 6.2-12.[address] [facility] RBC Auto (Bld) [#/Vol]Ordere d By: Estuardo Acevedo on 05-02-2023 RBC (Bld) [#/Vol] 4.62 10*6/uL 4.6-6.2 [facility] Serum or plasma calcium jerrell urement (mass/volume)Ordered By: Estuardo Acevedo on 05-02-2023 Calcium [Mass/Vol] 9.3 mg/dL 8.5-10.1 [facility] Serum or plasma creatinine m easurement (mass/volume)Ordered By: Estuardo Acevedo on 05-02-2023 Creatinine [Mass/Vol] 1.22 mg/dL 0.70-1.30 [facility] Comment on above: The validity of the calculated GFR & GFRAA in patients over 70 years has not been determined. Clinical correlation is essential. Serum or plasma urea nitroge n measurement (mass/volume)Ordered By: Estuardo Acevedo on 05-02-2023 Urea nitrogen [Mass/Vol] 23 mg/dL 7-[address] [facility] Thin prep Papanicolaou smear with manual screeningOrdered By: Estuardo Acevedo on 05-02-2023 Thin prep Papanicolaou smear with manual screening 3.8 g/dL 3.2-5.0 [facility] Thin prep Papanicolaou smear with manual screening 24 U/L 15-37 [facility] Thin prep Papanicolaou smear with manual screening 3 5-15 [facility] Thin prep Papanicolaou smear with manual screening 9.5 mg/L NO RANGE EST. [facility] Urine albumin/creatinine rat io for detection of microalbuminuriaOrdered By: Estuardo Acevedo on 05-02-2023 Albumin/Creatinine DL <= 1.0 mg/L (24H U) [Ratio] 4.8 mg/g CRE <[address] [facility] Urine creatinine measurement (mass/volume)Ordered By: Estuardo Acevedo on 05-02-2023 Creatinine (U) [Mass/Vol] 199.00 mg/dL NO RANGE EST. [facility] Very low density lipoprotein (VLDL) cholesterol measurementOrdered By: Estuardo Acevedo on 05-02-2023 Cholesterol in VLDL Calc [Moles/Vol] 16 mg/dL 5-[address] [facility] Absolute lymphocyte countOrd ered By: Estuardo Acevedo on 11-05-2022 Lymphocytes Auto (Unsp spec) [#/Vol] 1.42 10*3/uL 0.83-4.[address] [facility] Basophil percentageOrdered B y: Estuardo Acevedo on 11-05-2022 Basophils/100 WBC (Bld) 0.4 % 0-1 [facility] Bilirubin [Mass/Vol] 0.60 mg/dL 0.20-1.00 [facility] Comment on above: For patients on eltr ombopag therapy, use of Dimension [place] TBIL is not recommended. Chloride [Moles/Vol] 108 mmol/L 98-107 [facility] Cholesterol [Mass/Vol] 201 mg/dL <200 [facility] Comment on above: <200 mg/dL Desirable 200-240 mg/dL Borderline >240 mg/dL High Risk Eosinophils/100 WBC (Bld) 2.6 % 0-[address] [facility] Glucose [Mass/Vol] 89 mg/dL 74-106 [facility] Neutrophils (Bld) [#/Vol] 2.6 10*3/uL 2.0-7.[address] [facility] Neutrophils/100 WBC (Bld) 55.9 % 47-[address] [facility] Potassium [Moles/Vol] 4.9 mmol/L 3.5-5.1 [facility] Protein [Mass/Vol] 7.2 g/dL 6.4-8.2 [facility] Sodium [Moles/Vol] 139 mmol/L 136-145 [facility] Triglyceride [Mass/Vol] 100 mg/dL <199 [facility] Comment on above: The drugs N-Acetylcy steine and Metamizole may falsely depress this assay.Serum Triglycerides Reference Interval Normal <150 mg/dL Borderline high 150 - 199 mg/dL High 200 - 499 mg/dL Very High > or = 500 mg/dL WBC (Bld) [#/Vol] 4.6 10*3/uL 4.4-11.0 [facility] Blood erythrocytes count (nu mber/volume)Ordered By: Estuardo Acevedo on 11-05-2022 RBC (Bld) [#/Vol] 4.78 10*6/uL 4.6-6.2 [facility] Blood hemoglobin measurement (mass/volume)Ordered By: Estuardo Acevedo on 11-05-2022 Hemoglobin (Bld) [Mass/Vol] 15.1 g/dL 13.0-16. [address] [facility] Blood lymphocytes/100 leukoc ytesOrdered By: Estuardo Acevedo on 11-05-2022 Lymphocytes/100 WBC (Bld) 30.6 % 19-[address] [facility] Blood monocytes/100 leukocyt esOrdered By: Estuardo Acevedo on 11-05-2022 Monocytes/100 WBC (Bld) 10.3 % 0-10 [facility] Blood platelet mean volumeOr dered By: Estuardo Acevedo on 11-05-2022 Platelet mean volume (Bld) [Entitic vol] 10.3 fL 6.2-12.[address] [facility] Determination of erythrocyte mean corpuscular volume (MCV)Ordered By: Estuardo Acevedo on 11-05-2022 MCV (RBC) [Entitic vol] 97.5 fL 80-94 [facility] Hematocrit Auto (Bld) [Volum e fraction]Ordered By: Estuardo Acevedo on 11-05-2022 Hematocrit (Bld) [Volume fraction] 46.6 % 40-[address] [facility] Laboratory - Chemistry and C hemistry - challengeOrdered By: Estuardo Acevedo on 11-05-2022 ALP [Catalytic activity/Vol] 83 U/L 45-[address] [facility] ALT [Catalytic activity/Vol] 30 U/L 16-[address] [facility] CO2 [Moles/Vol] 29.0 mmol/L 21.0-32.[address] [facility] Globulin (S) [Mass/Vol] 3.6 g/dL 2.2-4.2 [facility] Urea nitrogen/Creatinine [Mass ratio] 14.2 mg/mg 10-[address] [facility] Laboratory - Hematology and Cell countsOrdered By: Estuardo Acevedo on 11-05-2022 Erythrocyte distribution width (RBC) [Entitic vol] 54.0 fL 35.1-43.9 [facility] Erythrocyte distribution width (RBC) [Ratio] 15.0 % 11.6-14.[address] [facility] Immature granulocytes/100 WBC (Bld) 0.200 % 0.0-0.[address] [facility] Comment on above: IG% - Immature Granu locytes (promyelocytes, myelocytes and metamyelocytes) > 1% indicates that a LEFT SHIFT is Present. MCH (RBC) [Entitic mass] 31.6 pg 27.0-32.[address] [facility] Nucleated RBC/100 WBC (Bld) [Ratio] 0 % 0-[address] [facility] MCHC Auto (RBC) [Mass/Vol]Or dered By: Estuardo Acevedo on 11-05-2022 MCHC (RBC) [Mass/Vol] 32.4 g/dL 32-36 [facility] No Panel InformationOrdered By: Estuardo Acevedo on 11-05-2022 Estimated GFR (MDRD) Amer 77 mL/min >[address] [facility] Comment on above: GFR Calc Estimated GFR (MDRD) Non-Af Amer 64 mL/min >[address] [facility] Comment on above: Non- GFR Calc Urine Microalbumin/Creatinine Ratio 4.3 mg/g CRE <[address] [facility] Platelets bldOrdered By: Livia Acevedo on 11-05-2022 Platelets (Bld) [#/Vol] 250 10*3/uL 150-[address] [facility] Serum or plasma albumin jerrell urement (mass/volume)Ordered By: Estuardo Acevedo on 11-05-2022 Albumin [Mass/Vol] 3.6 g/dL 3.2-5.0 [facility] Serum or plasma albumin/glob ulin mass ratioOrdered By: Estuardo Acevedo on 11-05-2022 Albumin/Globulin [Mass ratio] 1.0 {ratio} 0.9-2.[address] [facility] Serum or plasma calcium jerrell urement (mass/volume)Ordered By: Estuardo Acevedo on 11-05-2022 Calcium [Mass/Vol] 9.0 mg/dL 8.5-10.1 [facility] Serum or plasma cholesterol in HDL measurement (mass/volume)Ordered By: Estuardo Acevedo on 11-05-2022 Cholesterol in HDL [Mass/Vol] 66 mg/dL >[address] [facility] Comment on above: The drugs N-Acetylcy steine and Metamizole may falsely depress this assay. Reference Range HDL <40 mg/dL Low HDL Cholesterol HDL >or= 60 mg/dL High HDL Cholesterol Serum or plasma cholesterol in VLDL measurement (mass/volume)Ordered By: Estuardo Acevedo on 11-05-2022 Cholesterol in VLDL [Mass/Vol] 20 mg/dL 5-[address] [facility] Serum or plasma creatinine m easurement (mass/volume)Ordered By: Estuardo Acevedo on 11-05-2022 Creatinine [Mass/Vol] 1.20 mg/dL 0.70-1.30 [facility] Comment on above: The validity of the calculated GFR & GFRAA in patients over 70 years has not been determined. Clinical correlation is essential. Serum or plasma ferritin blair surement (mass/volume)Ordered By: Estuardo Acevedo on 11-05-2022 Ferritin [Mass/Vol] 31 ng/mL 26-388 [facility] Serum or plasma low density lipoprotein (LDL) cholesterol measurement (mass/volume)Ordered By: Estuardo Acevedo on 11-05-2022 Cholesterol in LDL [Mass/Vol] 115 mg/dL 0-[address] [facility] Serum or plasma urea nitroge n measurement (mass/volume)Ordered By: Estuardo Acevedo on 11-05-2022 Urea nitrogen [Mass/Vol] 17 mg/dL 7-[address] [facility] Thin prep Papanicolaou smear with manual screeningOrdered By: Estuardo Acevedo on 11-05-2022 Thin prep Papanicolaou smear with manual screening 19 U/L 15-37 [facility] Thin prep Papanicolaou smear with manual screening 2 5-15 [facility] Thin prep Papanicolaou smear with manual screening 8.2 mg/L NO RANGE EST. [facility] Urine creatinine measurement (mass/volume)Ordered By: Estuardo Acevedo on 11-05-2022 Creatinine (U) [Mass/Vol] 191.00 mg/dL NO RANGE EST. [facility] Absolute lymphocyte countOrd ered By: Dr. Acevedo on 04-30-2022 Lymphocytes Auto (Unsp spec) [#/Vol] 1.31 10*3/uL 0.83-4.[address] [facility] Basophil percentageOrdered B y: Dr. Acevedo on 04-30-2022 Basophils/100 WBC (Bld) 0.5 % 0-1 [facility] Eosinophils/100 WBC (Bld) 3.3 % 0-[address] [facility] Neutrophils (Bld) [#/Vol] 2.1 10*3/uL 2.0-7.[address] [facility] Neutrophils/100 WBC (Bld) 52.1 % 47-[address] [facility] WBC (Bld) [#/Vol] 4.0 10*3/uL 4.4-11.0 [facility] Bilirubin [Mass/Vol] 0.70 mg/dL 0.20-1.00 [facility] Comment on above: For patients on eltr ombopag therapy, use of Dimension [place] TBIL is not recommended. Chloride [Moles/Vol] 106 mmol/L 98-107 [facility] Glucose [Mass/Vol] 78 mg/dL 74-106 [facility] Potassium [Moles/Vol] 4.2 mmol/L 3.5-5.1 [facility] Protein [Mass/Vol] 6.8 g/dL 6.4-8.2 [facility] Sodium [Moles/Vol] 139 mmol/L 136-145 [facility] Blood erythrocytes count (nu mber/volume)Ordered By: Dr. Acevedo on 04-30-2022 RBC (Bld) [#/Vol] 4.88 10*6/uL 4.6-6.2 [facility] Blood hemoglobin measurement (mass/volume)Ordered By: Dr. Acevedo on 04-30-2022 Hemoglobin (Bld) [Mass/Vol] 15.1 g/dL 13.0-16. [address] [facility] Blood lymphocytes/100 leukoc ytesOrdered By: Dr. Acevedo on 04-30-2022 Lymphocytes/100 WBC (Bld) 32.8 % 19-[address] [facility] Blood monocytes/100 leukocyt esOrdered By: Dr. Acevedo on 04-30-2022 Monocytes/100 WBC (Bld) 11.0 % 0-10 [facility] Blood platelet mean volumeOr dered By: Dr. Acevedo on 04-30-2022 Platelet mean volume (Bld) [Entitic vol] 10.0 fL 6.2-12.[address] [facility] Determination of erythrocyte mean corpuscular volume (MCV)Ordered By: Dr. Acevedo on 04-30-2022 MCV (RBC) [Entitic vol] 92.6 fL 80-94 [facility] Hematocrit Auto (Bld) [Volum e fraction]Ordered By: Dr. Acevedo on 04-30-2022 Hematocrit (Bld) [Volume fraction] 45.2 % 40-[address] [facility] Laboratory - Chemistry and C hemistry - challengeOrdered By: Dr. Acevedo on 04-30-2022 ALP [Catalytic activity/Vol] 78 U/L 45-[address] [facility] ALT [Catalytic activity/Vol] 27 U/L 16-[address] [facility] CO2 [Moles/Vol] 25.0 mmol/L 21.0-32.[address] [facility] Globulin (S) [Mass/Vol] 3.2 g/dL 2.2-4.2 [facility] Urea nitrogen/Creatinine [Mass ratio] 17.0 mg/mg 10-[address] [facility] Laboratory - Hematology and Cell countsOrdered By: Dr. Acevedo on 04-30-2022 Erythrocyte distribution width (RBC) [Entitic vol] 51.6 fL 35.1-43.9 [facility] Erythrocyte distribution width (RBC) [Ratio] 15.0 % 11.6-14.[address] [facility] Immature granulocytes/100 WBC (Bld) 0.300 % 0.0-0.[address] [facility] Comment on above: IG% - Immature Granu locytes (promyelocytes, myelocytes and metamyelocytes) > 1% indicates that a LEFT SHIFT is Present. MCH (RBC) [Entitic mass] 30.9 pg 27.0-32.[address] [facility] Nucleated RBC/100 WBC (Bld) [Ratio] 0 % 0-[address] [facility] MCHC Auto (RBC) [Mass/Vol]Or dered By: Dr. Acevedo on 04-30-2022 MCHC (RBC) [Mass/Vol] 33.4 g/dL 32-36 [facility] No Panel InformationOrdered By: Dr. Acevedo on 04-30-2022 Urine Microalbumin/Creatinine Ratio 4.9 mg/g CRE <[address] [facility] Estimated GFR (MDRD) Amer 84 mL/min >[address] [facility] Comment on above: GFR Calc Estimated GFR (MDRD) Non-Af Amer 69 mL/min >[address] [facility] Comment on above: Non- GFR Calc Prostate Specific Antigen Screen 1.79 ng/mL 0.00-4.[address] [facility] Comment on above: This test was perfor med using the TPSA assay method for [employer] chemistry system. Values obtained with differentassay methods cannot be used interchangably.When changing PSA assays in the course of monitoring apatient, additional sequential testing should be carriedout to confirm baseline values. Platelets bldOrdered By: Dr. Acevedo on 04-30-2022 Platelets (Bld) [#/Vol] 270 10*3/uL 150-[address] [facility] Serum or plasma albumin jerrell urement (mass/volume)Ordered By: Dr. Acevedo on 04-30-2022 Albumin [Mass/Vol] 3.6 g/dL 3.2-5.0 [facility] Serum or plasma albumin/glob ulin mass ratioOrdered By: Dr. Acevedo on 04-30-2022 Albumin/Globulin [Mass ratio] 1.1 {ratio} 0.9-2.[address] [facility] Serum or plasma calcium jerrell urement (mass/volume)Ordered By: Dr. Acevedo on 04-30-2022 Calcium [Mass/Vol] 8.9 mg/dL 8.5-10.1 [facility] Serum or plasma creatinine m easurement (mass/volume)Ordered By: Dr. Acevedo on 04-30-2022 Creatinine [Mass/Vol] 1.12 mg/dL 0.70-1.30 [facility] Comment on above: The validity of the calculated GFR & GFRAA in patients over 70 years has not been determined. Clinical correlation is essential. Serum or plasma ferritin blair surement (mass/volume)Ordered By: Dr. Acevedo on 04-30-2022 Ferritin [Mass/Vol] 32 ng/mL 26-388 [facility] Serum or plasma urea nitroge n measurement (mass/volume)Ordered By: Dr. Acevedo on 04-30-2022 Urea nitrogen [Mass/Vol] 19 mg/dL 7-[address] [facility] Thin prep Papanicolaou smear with manual screeningOrdered By: Dr. Acevedo on 04-30-2022 Thin prep Papanicolaou smear with manual screening 8.0 mg/L NO RANGE EST. [facility] Thin prep Papanicolaou smear with manual screening 17 U/L 15-37 [facility] Thin prep Papanicolaou smear with manual screening 8 5-15 [facility] Urine creatinine measurement (mass/volume)Ordered By: Dr. Acevedo on 04-30-2022 Creatinine (U) [Mass/Vol] 165.00 mg/dL NO RANGE EST. [facility] Absolute lymphocyte counton 12-18-2021 Lymphocytes Auto (Unsp spec) [#/Vol] 1.32 10*3/uL 0.83-4.[address] [facility] Work Phone: Basophil percentageon 2021 Basophils/100 WBC (Bld) 0.3 % 0-1 [facility] Work Phone: [phone] Bilirubin [Mass/Vol] 0.60 mg/dL 0.20-1.00 [facility] Work Phone: [phone] Comment on above: For patients on eltr ombopag therapy, use of Dimension [place] TBIL is not recommended. Chloride [Moles/Vol] 107 mmol/L 98-107 [facility] Work Phone: Eosinophils/100 WBC (Bld) 1.7 % 0-[address] [facility] Work Phone: [phone] Glucose [Mass/Vol] 77 mg/dL 74-106 [facility] Work Phone: [phone] Neutrophils (Bld) [#/Vol] 4.9 10*3/uL 2.0-7.[address] [facility] Work Phone: [phone] Neutrophils/100 WBC (Bld) 70.6 % 47-[address] [facility] Work Phone: [phone] Potassium [Moles/Vol] 3.8 mmol/L 3.5-5.1 [facility] Work Phone: Protein [Mass/Vol] 7.0 g/dL 6.4-8.2 [facility] Work Phone: Sodium [Moles/Vol] 142 mmol/L 136-145 [facility] Work Phone: WBC (Bld) [#/Vol] 7.0 10*3/uL 4.4-11.0 [facility] Work Phone: Blood erythrocytes count (nu mber/volume)on 12-18-2021 RBC (Bld) [#/Vol] 4.47 10*6/uL 4.6-6.2 [facility] Work Phone: Blood hemoglobin measurement (mass/volume)on 12-18-2021 Hemoglobin (Bld) [Mass/Vol] 13.3 g/dL 13.0-16. [address] [facility] Work Phone: Blood lymphocytes/100 leukoc yteson 12-18-2021 Lymphocytes/100 WBC (Bld) 18.9 % 19-[address] [facility] Work Phone: [phone] Blood monocytes/100 leukocyt eson 12-18-2021 Monocytes/100 WBC (Bld) 8.2 % 0-10 [facility] Work Phone: Blood platelet mean volumeon 12-18-2021 Platelet mean volume (Bld) [Entitic vol] 10.3 fL 6.2-12.[address] [facility] Work Phone: Determination of erythrocyte mean corpuscular volume (MCV)on 12-18-2021 MCV (RBC) [Entitic vol] 90.8 fL 80-94 [facility] Work Phone: Hematocrit Auto (Bld) [Volum e fraction]on 12-18-2021 Hematocrit (Bld) [Volume fraction] 40.6 % 40-[address] [facility] Work Phone: Hemoglobin in reticulocytes (mass per reticulocyte)on 09-12-2022 Hemoglobin (Reticulocytes) [Entitic mass] 31.3 pg 30-[address] [facility] Work Phone: Laboratory - Chemistry and C hemistry - challengeon 12-18-2021 ALP [Catalytic activity/Vol] 78 U/L 45-[address] [facility] Work Phone: ALT [Catalytic activity/Vol] 25 U/L 16-[address] [facility] Work Phone: CO2 [Moles/Vol] 28.0 mmol/L 21.0-32.[address] [facility] Work Phone: [phone] Globulin (S) [Mass/Vol] 3.4 g/dL 2.2-4.2 [facility] Work Phone: Urea nitrogen/Creatinine [Mass ratio] 19.5 mg/mg 10-[address] [facility] Work Phone: Laboratory - Hematology and Cell countson 12-18-2021 Erythrocyte distribution width (RBC) [Entitic vol] 57.6 fL 35.1-43.9 [facility] Work Phone: Erythrocyte distribution width (RBC) [Ratio] 17.2 % 11.6-14.[address] [facility] Work Phone: Immature granulocytes/100 WBC (Bld) 0.300 % 0.0-0.[address] [facility] Work Phone: Comment on above: IG% - Immature Granu locytes (promyelocytes, myelocytes and metamyelocytes) > 1% indicates that a LEFT SHIFT is Present. MCH (RBC) [Entitic mass] 29.8 pg 27.0-32.[address] [facility] Work Phone: Nucleated RBC/100 WBC (Bld) [Ratio] 0 % 0-[address] [facility] Work Phone: MCHC Auto (RBC) [Mass/Vol]on 12-18-2021 MCHC (RBC) [Mass/Vol] 32.8 g/dL 32-36 [facility] Work Phone: No Panel Informationon 12-18 Estimated GFR (MDRD) Amer 79 mL/min >[address] [facility] Work Phone: Comment on above: GFR Calc Estimated GFR (MDRD) Non-Af Amer 65 mL/min >[address] [facility] Work Phone: Comment on above: Non- GFR Calc Immature Reticulocyte Fraction 16.40 % 3.00-15.[address] [facility] Work Phone: Prostate Specific Antigen Screen 2.15 ng/mL 0.00-4.[address] [facility] Work Phone: Comment on above: This test was perfor med using the TPSA assay method for [employer] chemistry system. Values obtained with differentassay methods cannot be used interchangably.When changing PSA assays in the course of monitoring apatient, additional sequential testing should be carriedout to confirm baseline values. Reticulocyte Count 1.47 % 0.5-1.5 [facility] Work Phone: Total Iron Binding Capacity 484 ug/dL 250-[address] [facility] Work Phone: Urine Microalbumin/Creatinine Ratio 5.7 mg/g CRE <[address] [facility] Work Phone: Platelets bldon 12-18-2021 Platelets (Bld) [#/Vol] 288 10*3/uL 150-[address] [facility] Work Phone: Serum or plasma albumin jerrell urement (mass/volume)on 12-18-2021 Albumin [Mass/Vol] 3.6 g/dL 3.2-5.0 [facility] Work Phone: Serum or plasma albumin/glob ulin mass ratioon 12-18-2021 Albumin/Globulin [Mass ratio] 1.1 {ratio} 0.9-2.[address] [facility] Work Phone: Serum or plasma calcium jerrell urement (mass/volume)on 12-18-2021 Calcium [Mass/Vol] 9.3 mg/dL 8.5-10.1 [facility] Work Phone: Serum or plasma creatinine m easurement (mass/volume)on 12-18-2021 Creatinine [Mass/Vol] 1.18 mg/dL 0.70-1.30 [facility] Work Phone: Comment on above: The validity of the calculated GFR & GFRAA in patients over 70 years has not been determined. Clinical correlation is essential. Serum or plasma ferritin blair surement (mass/volume)on 12-18-2021 Ferritin [Mass/Vol] 9 ng/mL 26-388 [facility] Work Phone: Serum or plasma urea nitroge n measurement (mass/volume)on 12-18-2021 Urea nitrogen [Mass/Vol] 23 mg/dL 7-[address] [facility] Work Phone: Thin prep Papanicolaou smear with manual screeningon 12-18-2021 Thin prep Papanicolaou smear with manual screening 18 U/L 15-37 [facility] Work Phone: Thin prep Papanicolaou smear with manual screening 7 5-15 [facility] Work Phone: Thin prep Papanicolaou smear with manual screening 9.8 mg/L NO RANGE EST. [facility] Work Phone: Urine creatinine measurement (mass/volume)on 12-18-2021 Creatinine (U) [Mass/Vol] 172.00 mg/dL NO RANGE EST. [facility] Work Phone: Basophil percentageon 2021 Bilirubin [Mass/Vol] 0.60 mg/dL 0.20-1.00 [facility] Work Phone: Comment on above: For patients on eltr ombopag therapy, use of Dimension [place] TBIL is not recommended. Chloride [Moles/Vol] 107 mmol/L 98-107 [facility] Work Phone: Cholesterol [Mass/Vol] 173 mg/dL <200 [facility] Work Phone: Comment on above: <200 mg/dL Desirable 200-240 mg/dL Borderline >240 mg/dL High Risk Glucose [Mass/Vol] 86 mg/dL 74-106 [facility] Work Phone: Potassium [Moles/Vol] 3.8 mmol/L 3.5-5.1 [facility] Work Phone: Protein [Mass/Vol] 7.2 g/dL 6.4-8.2 [facility] Work Phone: Sodium [Moles/Vol] 140 mmol/L 136-145 [facility] Work Phone: Triglyceride [Mass/Vol] 94 mg/dL <199 [facility] Work Phone: [phone] Comment on above: The drugs N-Acetylcy steine and Metamizole may falsely depress this assay.Serum Triglycerides Reference Interval Normal <150 mg/dL Borderline high 150 - 199 mg/dL High 200 - 499 mg/dL Very High > or = 500 mg/dL Laboratory - Chemistry and C hemistry - challengeon 10-23-2021 ALP [Catalytic activity/Vol] 78 U/L 45-[address] [facility] Work Phone: ALT [Catalytic activity/Vol] 22 U/L 16-[address] [facility] Work Phone: CO2 [Moles/Vol] 29.0 mmol/L 21.0-32.[address] [facility] Work Phone: Globulin (S) [Mass/Vol] 3.3 g/dL 2.2-4.2 [facility] Work Phone: Urea nitrogen/Creatinine [Mass ratio] 13.1 mg/mg 10-[address] [facility] Work Phone: No Panel Informationon 10-23 Estimated GFR (MDRD) Amer 67 mL/min >[address] [facility] Work Phone: Comment on above: GFR Calc Estimated GFR (MDRD) Non-Af Amer 55 mL/min >[address] [facility] Work Phone: Comment on above: Non- GFR Calc Serum or plasma albumin jerrell urement (mass/volume)on 10-23-2021 Albumin [Mass/Vol] 3.9 g/dL 3.2-5.0 [facility] Work Phone: Serum or plasma albumin/glob ulin mass ratioon 10-23-2021 Albumin/Globulin [Mass ratio] 1.2 {ratio} 0.9-2.[address] [facility] Work Phone: Serum or plasma calcium jerrell urement (mass/volume)on 10-23-2021 Calcium [Mass/Vol] 9.3 mg/dL 8.5-10.1 [facility] Work Phone: Serum or plasma cholesterol in HDL measurement (mass/volume)on 10-23-2021 Cholesterol in HDL [Mass/Vol] 65 mg/dL >[address] [facility] Work Phone: Comment on above: The drugs N-Acetylcy steine and Metamizole may falsely depress this assay. Reference Range HDL <40 mg/dL Low HDL Cholesterol HDL >or= 60 mg/dL High HDL Cholesterol Serum or plasma cholesterol in VLDL measurement (mass/volume)on 10-23-2021 Cholesterol in VLDL [Mass/Vol] 19 mg/dL 5-[address] [facility] Work Phone: Serum or plasma creatinine m easurement (mass/volume)on 10-23-2021 Creatinine [Mass/Vol] 1.37 mg/dL 0.70-1.30 [facility] Work Phone: Comment on above: The validity of the calculated GFR & GFRAA in patients over 70 years has not been determined. Clinical correlation is essential. Serum or plasma low density lipoprotein (LDL) cholesterol measurement (mass/volume)on 10-23-2021 Cholesterol in LDL [Mass/Vol] 89 mg/dL 0-[address] [facility] Work Phone: Serum or plasma urea nitroge n measurement (mass/volume)on 10-23-2021 Urea nitrogen [Mass/Vol] 18 mg/dL 7-[address] [facility] Work Phone: Thin prep Papanicolaou smear with manual screeningon 10-23-2021 Thin prep Papanicolaou smear with manual screening 16 U/L 15-37 [facility] Work Phone: Thin prep Papanicolaou smear with manual screening 4 5-15 [facility] Work Phone: Vital Signs Date Time Vital Sign Value Performing Clinician Faci lity 02-28-2024 10:40-0500 Respiratory rate 16 /min Annmarie Prieto MD Work Phone: [facility] 02-28-2024 10:10-0500 Heart rate 52 /min Annmarie Prieto MD Work Phone: [facility] 02-28-2024 10:05-0500 Diastolic blood pressure 72 mm[Hg] Annmarie Prieto MD Work Phone: [facility] 02-28-2024 10:05-0500 SaO2% (BldA) [Mass fraction] 100 % Annmarie Prieto MD Work Phone: [facility] 02-28-2024 10:05-0500 Systolic blood pressure 139 mm[Hg] Annmarie Prieto MD Work Phone: [facility] 02-28-2024 09:14-0500 Body mass index (BMI) [Ratio] 35.18 kg/m2 Annmarie Prieto MD Work Phone: [facility] 02-28-2024 09:14-0500 Body temperature 97.59 [degF] Annmarie Prieto MD Work Phone: [facility] 02-28-2024 09:14-0500 Body weight 101.9 kg Annmarie Prieto MD Work Phone: [facility] 01-28-2024 11:10-0400 Body height 170.2 cm Sommer Marrero PARKING ASSISTANT.SPLUNK DASHBOARD DEVELOPER Work Phone: [facility] 01-28-2024 11:10-0400 Body mass index (BMI) [Ratio] 35.18 kg/m2 Sommer Marrero PARKING ASSISTANT.SPLUNK DASHBOARD DEVELOPER Work Phone: [facility] 01-28-2024 11:100400 Body temperature 97.3 [degF] Sommer Quanir PARKING ASSISTANT.SPLUNK DASHBOARD DEVELOPER Work Phone: [facility] 01-28-2024 11:100400 Body weight 101.88 kg Sommer Blair PARKING ASSISTANT.SPLUNK DASHBOARD DEVELOPER Work Phone: [facility] 01-28-2024 11:10-0400 Diastolic blood pressure 76 mm[Hg] Sommer Quanir PARKING ASSISTANT.SPLUNK DASHBOARD DEVELOPER Work Phone: [facility] 01-28-2024 11:100400 Heart rate 77 /min Sommer Marrero PARKING ASSISTANT.SPLUNK DASHBOARD DEVELOPER Work Phone: [facility] 01-28-2024 11:10-0400 SaO2% (BldA) [Mass fraction] 99 % Sommer Quanir PARKING ASSISTANT.SPLUNK DASHBOARD DEVELOPER Work Phone: [facility] 01-28-2024 11:10-0400 Systolic blood pressure 136 mm[Hg] Sommerdaxa Quanir PARKING ASSISTANT.SPLUNK DASHBOARD DEVELOPER Work Phone: [facility] Encounters Encounter Date Encounter Type Care Provider Facility Start: 11-09-2024 End: 11-09-2024 Emergency department patient visit EDDIE NICK [facility] Start: 04-30-2024 End: 04-30-2024 ambulatory [facility] Facility:[facility] Start: 03-04-2024 End: 03-04-2024 Admission to same day surgery center Sommer Marrero APRN.SPLUNK DASHBOARD DEVELOPER Work Phone: General Surgery Comment on above: Colonoscopy Polyp Start: 03-04-2024 End: 03-04-2024 E-mail encounter from caregiver Sommer Terry KUNZSPLUNK DASHBOARD DEVELOPER Work Phone: General Surgery Start: 02-28-2024 End: 02-28-2024 ambulatory ANNMARIE PRIETO Facility:[facility] Start: 02-28-2024 End: 02-28-2024 Subsequent hospital visit by physician Annmarie Prieto MD Work Phone: Ambulatory Surgery Comment on above: Encounter for screen ing for malignant neoplasm of colon [Z12.11] Start: 01-28-2024 End: 01-28-2024 ambulatory SOMMER MARRERO Facility:[facility] Start: 01-28-2024 End: 01-28-2024 Patient encounter procedure Sommer Marrero PARKING ASSISTANT.SPLUNK DASHBOARD DEVELOPER Work Phone: General Surgery Comment on above: Encounter for screen ing for malignant neoplasm of colon (Primary Dx); History of colonic polyps Start: 11-07-2023 End: 11-07-2023 ambulatory Estuardo Acevedo Facility:[facility] Start: 10-23-2023 End: 10-23-2023 ambulatory ESTUARDO ACEVEDO MD Facility: Start: 10-21-2023 End: 10-21-2023 ambulatory Estuardo Acevedo Facility:[facility] Start: 05-02-2023 End: 05-02-[address] [facility] Work Phone: Start: 05-02-2023 End: 05-02-2023 Patient encounter procedure [facility] Start: 11-05-2022 End: 11-05-[address] [facility] Work Phone: Start: 11-05-2022 End: 11-05-2022 Patient encounter procedure [facility] Start: 04-30-2022 End: 04-30-[address] [facility] Work Phone: Start: 04-30-2022 End: 04-30-2022 Patient encounter procedure [facility] Start: 12-18-2021 End: 12-18-[address] [facility] Work Phone: Start: 12-18-2021 End: 12-18-2021 Patient encounter procedure [facility] Start: 10-23-2021 End: 10-23-2021 Patient encounter procedure [facility] Procedures Date Procedure Procedure Detail Performing Clinician Start: 02-28-2024 Colonoscopy flx dx w /collj spec when pfrmd Sommer Marrero PARKING ASSISTANT.SPLUNK DASHBOARD DEVELOPER Work Phone: Start: 02-28-2024 Colonoscopy Annmarie Prieto MD Work Phone: Plan of Treatment Date Care Activity Detail Author Start: 2029 RSV Vaccine (1 - 1-d ose 75+ series) RSV Vaccine (1 - 1-dose 75+ series) [facility] Start: 02-27-2025 Screening for malign ant neoplasm of colon [facility] Start: 02-19-2025 Urine microalbumin profile DTaP,Tdap,Td Vaccine (2 - Td or Tdap) [facility] Start: 03-10-2024 End: 03-10-2024 Patient encounter procedure 03/10/2024 9:00 AM EST Appointment Ambulatory Surgery [address] [place] [address] Annmarie Prieto MD [address] [facility] [place] [address] Ambulatory Surgery Start: 12-08-2023 Covid-19 Vaccine ( season) Covid-19 Vaccine ( season) [facility] Start: 12-08-2023 Influenza vaccination Influenza Vacc ine (#1) [facility] Start: 04-08-2023 Advance Directive Discussion Advance Directive Discussion [facility] Start: 1999 Diabetes Screening Diabetes Screenin g [facility] Start: 1999 Screening for malign ant neoplasm of colon [facility] Start: 1989 Lipid panel Lipid Screening [facility] Start: 1972 Annual PCP Team Sane Rn jose Disease Visit Annual PCP Team Chronic Disease Visit [facility] Start: 1972 Anxiety Screening Anxiety Screening [facility] Start: 1972 BP Controlled (<130/80) BP Con trolled (<130/80) [facility] Start: 1972 Depression Screening Depression Scre ening [facility] Start: 1972 Hepatitis C screening Hepatitis C Sc karin [facility] End: 01-27-2025 Screening colonoscopy COLONOSCOPY SCREENING Endoscopy Routine Encounter for screening for malignant neoplasm of colon 1 Occurrences starting 01/28/2024 until 01/27/2025 [facility] Work Phone: Comment on above: 1 Occurrences starti ng 01/28/2024 until 01/27/2025 SURGICAL PATHOLOGY [facility] Work Phone: Comment on above: Release Upon Orderin g for 1 Occurrences starting 02/28/2024, 1 completed Immunizations Immunization Date Immunization Notes Care Provider Fa cility 01-04-2023 influenza virus vacc ine, unspecified formulation Sommer Marrero PARKING ASSISTANT.SPLUNK DASHBOARD DEVELOPER Work Phone: [facility] Payers Date Payer Category Payer Self-pay [id number] 2019 Medicare [id number] 2019 Unknown MMO MMO MEDICARE SUPPLEMENT [id number] 2019-Present [phone] [address] [place] [address] Indemnity [id number] 2019 Medicare [id number] 2019 Unknown [id number] 1955 Unknown [id number] Unknown [id number] Unknown [id number] Unknown [id number] Unknown [id number] Social History Date Type Detail [facility] Work Phone: Start: 1955 Sex Assigned At Male [facility] Start: 01-28-2024 [facility] Start: 01-28-2024 Tobacco use and exposure Smokeless tobacco non-user [facility] Start: 01-28-2024 End: 02-28-2024 Alcoholic beverage intake Current drinker of alcohol (finding) [facility] Start: 01-28-2024 End: 02-28-2024 Alcoholic beverage intake [facility] Start: 01-28-2024 End: 02-28-2024 Tobacco use panel [facility] National Score (1-10 0), lower number is lower risk 43 [facility] Start: 11-01-2020 Alcohol Comment daily red wine [facility] Start: 10-28-2020 Gender identity Identifies as male gender (finding) [facility] Start: 10-28-2020 Sexual orientation Heterosexual (fin ding) [facility] Tobacco smoking status [facility] Start: 05-17-2005 Sex Male (finding) [facility] Clinical Notes 01-28-2024 to 11-09-2024 Apple Willis RN - 02/28/2024 10:16 AM Apple Simon RN - 02/28/2024 10:16 AM ESTDischarge Instr - Nursing - Apple Willis RN - 02/28/2024 10:15 AM EST Note Date & Type Note Facility 11-09-2024 Hospital Discharg e instructions Patient Education 11/09/2024 18:03:40 Laceration, Extremity: Skin Glue Extremity Laceration: Skin Glue A laceration is a cut through the skin. You have a laceration that has been closed with skin glue. This is used on cuts that have smooth edges and are not infected. It's best used on straight, clean cuts on areas that do not get a lot of tension. You may need a tetanus shot. This is given if you have no record of a shot, and the object that caused the cut may lead to tetanus. Home care Your healthcare provider may prescribe an antibiotic. This is to help prevent infection. Follow all instructions for taking this medicine. Take the medicine every day until it is gone or you are told to stop. You should not have any left over. The healthcare provider may prescribe medicines for pain. Follow instructions for taking them. Follow the healthcare provider s instructions on how to care for the cut. No bandage is needed. Skin glue peels off on its own within 5 to 10 days. Most skin wounds heal within 10 days. Keep the wound clean. You may shower or bathe as usual, but do not use soaps, lotions, or ointments on the wound area. Do not scrub the wound. After bathing, pat the wound dry with a soft towel. Don't scratch, rub, or pick at the film. Don't place tape directly over the film. Don't put liquids such as peroxide, ointments, or creams on the wound while the skin glue is in place. Many oil based products can weaken and dissolve the glue. Don't do any activities that may reinjure your wound. Don't do any activities that cause heavy sweating. Protect the wound from sunlight. Most skin wounds heal without problems. But an infection sometimes occurs even with proper treatment. Watch for the signs of infection listed below. Follow-up care Follow up as directed with your healthcare provider, or as advised. When to seek medical advice Call your healthcare provider right away if any of these occur: Wound bleeding not controlled by direct pressure Signs of infection, including increasing pain in the wound, increasing wound redness or swelling, or pus or bad odor coming from the wound Fever of 100.4 F (38. C) or higher, or as directed by your healthcare provider Wound edges reopen Wound changes colors Numbness around the wound Decreased movement around the injured area [id number] [employer]. [address] [place] [address]. All rights reserved. This information is not intended as a substitute for professional medical care. Always follow your healthcare professional's instructions. Follow Up Care 11/09/2024 17:02:19 With:[facility] Address: [address] [place] [phone] When:2-4 days [facility] 11-09-2024 Emergency department Discharge summary Discharge Instructions Thank you for allowing [facility] to assist you with your healthcare needs. The following is important discharge information regarding your hospital visit. Diagnosis from Today's Visit Laceration of finger without complication What to Do Next Instructions from Your Care Team No qualifying data available. Post Acute Orders No qualifying data available. You Need to Schedule the Following Appointments Follow Up with [facility] When:Within 2-4 days Where:[address] [place] [phone] Allergies NKA Immunizations This Visit Not Given Vaccine Commentstetanus/diphtheria/pertu [id number] Patient Refuses Pt received on 05/11/24 Medications Please ask your primary doctor or pharmacist before taking any other medication not listed, including over the counter drugs, herbal medications, vitamins and or supplements as they may interact with your home medications. Please take this list to your next doctor s visit. Bring all medications you take, including over the counter medications, herbals and other supplements with you to your doctor s visit. Patients and families are reminded to discard old lists and to update any records with all medication providers or retail pharmacies. Education Materials Extremity Laceration: Skin Glue A laceration is a cut through the skin. You have a laceration that has been closed with skin glue. This is used on cuts that have smooth edges and are not infected. It's best used on straight, clean cuts on areas that do not get a lot of tension. You may need a tetanus shot. This is given if you have no record of a shot, and the object that caused the cut may lead to tetanus. Home care Your healthcare provider may prescribe an antibiotic. This is to help prevent infection. Follow all instructions for taking this medicine. Take the medicine every day until it is gone or you are told to stop. You should not have any left over. The healthcare provider may prescribe medicines for pain. Follow instructions for taking them. Follow the healthcare provider s instructions on how to care for the cut. No bandage is needed. Skin glue peels off on its own within 5 to 10 days. Most skin wounds heal within 10 days. Keep the wound clean. You may shower or bathe as usual, but do not use soaps, lotions, or ointments on the wound area. Do not scrub the wound. After bathing, pat the wound dry with a soft towel. Don't scratch, rub, or pick at the film. Don't place tape directly over the film. Don't put liquids such as peroxide, ointments, or creams on the wound while the skin glue is in place. Many oil based products can weaken and dissolve the glue. Don't do any activities that may reinjure your wound. Don't do any activities that cause heavy sweating. Protect the wound from sunlight. Most skin wounds heal without problems. But an infection sometimes occurs even with proper treatment. Watch for the signs of infection listed below. Follow-up care Follow up as directed with your healthcare provider, or as advised. When to seek medical advice Call your healthcare provider right away if any of these occur: Wound bleeding not controlled by direct pressure Signs of infection, including increasing pain in the wound, increasing wound redness or swelling, or pus or bad odor coming from the wound Fever of 100.4 F (38. C) or higher, or as directed by your healthcare provider Wound edges reopen Wound changes colors Numbness around the wound Decreased movement around the injured area [id number] [employer]. [address] [place] [address]. All rights reserved. This information is not intended as a substitute for professional medical care. Always follow your healthcare professional's instructions. Additional Information VACCINATE! IT SAVES LIVES! Members of the community who have not yet received the COVID-19 vaccine and would like to receive it can visit one of [facility] vaccine clinics. There are many vaccine clinic locations within the [facility]. For locations and available times, please visit [email or web address].[place]. gov/. It is important to note that some COVID mobile vaccine clinics are held outdoors and may be canceled in rainy or stormy conditions. To learn more about pediatric vaccinations (ages 5-11), we invite you to visit the [facility] webpage. [email or web address] [email or web address] To learn more about the COVID-19 vaccine, we invite you to visit the CDC website for a list of frequently asked questions. https://www.cdc.gov/coronavirus/ 2019-ncov/vaccines/faq.html [facility] Patient Portal Access Instructions: Stay connected with your healthcare team and access your personal medical information anytime with the [facility] Patient Portal. If you would like a full copy of your medical records please contact the [facility] Medical Records Department Saturday through Saturday between 8a.m. and 4:30p.m. Please follow the directions below to access the portal: 1.Access the email account you provided upon registration to the [facility].2.Look for an invitation email from [facility].3.Open the email and access the invitation link: Accept Invitation to [facility]4.Fill in the required zaman to create your account. Sign into [email or web address] with your username and password that you created in the above steps to stay up to date. You can then view a summary of results, a summary of your visits, and the ability to download your summaries to your computer or send the information securely to a physician. Remember that your healthcare information is confidential, so carefully consider who you will allow to register on the [facility] Patient Portal for access to your information. You can also access the [facility] Patient Portal on the [employer] remy. Simply click on Health Records under Health Data and then click on the [facility] logo. HOW TO SAFELY DISPOSE OF PRESCRIPTION MEDICATIONS Please use one of the following methods to safely dispose of your unused medications. 1.Use a drug disposal kit: the drug disposal pouch allows you to safely discard your old and unused drugs. Ask your nurse to give you one when you are discharged.2.Visit a local take-back location: Many local pharmacies and police departments have programs that collect old and unwanted prescription drugs. Call your local pharmacy or go to http://bit.[employer]/0D9Tm9v to find one close to you.3.Make use of household items: Use cat litter or old coffee grounds to dispose medications if other options are not available. Mix your drugs with these household products, seal them in an airtight container and throw it into the garbage. Call [facility]: [phone] to be sure your drugs can be disposed of in this way. Some medicines may require a different approach.4.Never flush your medications down the toilet. IF YOU HAVE BEEN PRESCRIBED AN OPIOIDS FOR PAIN If you have been prescribed an opioid (such as hydrocodone, oxycodone or morphine), it is critical to understand the possible side effects and risks of opioid pain medications. Even when taken as directed, opioids can have several side effects including: Tolerance, meaning you might need to take more of a medication for the same pain relief. Nausea, vomiting and/or constipation. Sleepiness, dizziness, dry mouth, confusion, depression or itching. Physical dependence, meaning you have withdrawal symptoms when a medication is stopped ? this can develop within a few days. KNOW YOUR RESPONSIBILITIES It is important to know exactly how much and how often to take the opioid pain medications you are prescribed. Never take opioids in higher amounts or more often than prescribed. Do not combine opioids with alcohol or other drugs that cause drowsiness, such as benzodiazepines, also known as benzos, including diazepam and alprazolam, muscle relaxants or sleep aids. Never sell or share prescription opioids. This is illegal. Store opioids in a secure place and out of reach of others (including children, family, friends and visitors). The last page(s) of this document has been signed and retained as a CHART COPY Signatures Patient Education Materials Laceration, Extremity: Skin Glue Medication Leaflets My discharge plan and instructions have been reviewed and explained to me and I,CARISA MCDONALD W understand my current condition and have read and understand these discharge instructions. I have received a written copy of the plan/instructions. If I have questions, I am aware that I should contact my doctor. Patient/Pododermatologist Signature: Date/Time: Relationship to Patient: Witness Name/Signature: Date/Time: [facility] 02-28-2024 Nurse Note pt arrived to phase 2 resting on left side. SR up x 2, call light in reach. Apple Willis RN [facility] 02-28-2024 Nurse Note pt arrived to phase 2 resting on left side. SR up x 2, call light in reach. Apple Willis RN documented in this encounter [facility] 02-28-2024 Note Formatting of this n ote might be different from the original. The patient received a copy of Colonoscopy discharge instructions that contain information for how to contact the physician who performed the procedure and when to seek medical care. [facility] 02-28-2024 Miscellaneous Notes The patient received a copy of Colonoscopy discharge instructions that contain information for how to contact the physician who performed the procedure and when to seek medical care. documented in this encounter [facility] 02-28-2024 Attending History and physical note UPDATED PROCEDURAL SEDATION HISTORY AND PHYSICAL EXAMINATION SERVICE DATE: 02/28/2024 SERVICE TIME: 8:58 PHYSICAL EXAM MUST BE COMPLETED ON ADMISSION PROCEDURE: colonoscopy, possible biopsies Procedure Indications: screening for colon cancer The History and Physical (completed in the past 30 days) has been reviewed and the patient has been examined. The contents accurately reflect the patient's condition with the following additions or revisions since the H&P was completed. ASA Class: ASA Class: Patient with severe systemic disease Examination indicates no changes. AIRWAY: Airway Visualization of Uvula: Yes Mouth opening greater than 2 fingerbreadths: Yes Neck Full Range of Motion: Yes LUNGS: Lungs clear to auscultation CARDIAC: Regular rhythm,Regular rate Provisional Diagnosis/Treatment Plan: colonoscopy, possible biopsies Sedation Goal: Moderate This H&P can be found in the Electronic Medical Record . SIGNATURE: Annmarie Prieto MD PATIENT NAME: Carisa Mcdonald DATE: February 28, 2024 TIME: 8:59 AM Source Note - Annmarie Prieto MD - 02/28/2024 9:45 AM EST HISTORY AND PHYSICAL Carisa Mcdonald : 1955 REFERRING PHYSICIAN: Estuardo Acevedo ([place]) [facility] [address] [phone] CHIEF COMPLAINT: Patient presents with: Consult: Colonoscopy consultation. HPI: Carisa is a 68 year old male referred for endoscopy. Carisa notes due for screening colonoscopy. Carisa denies abdominal pain.. Carisa denies diarrhea. Carisa denies constipation. Carisa denies a change in bowel habits. Carisa denies melena. Carisa denies bright red blood per rectum. Carisa denies hemorrhoids. Carisa denies heartburn. Carisa denies dysphagia. Carisa denies a history of ulcers/ peptic ulcer disease. Carisa denies family history of colon issues. Medical history significant for HTN, HLD, [place]. Carisa has undergone prior endoscopy. Colonoscopy in 2004 had 1 polyp, path unavailable, repeat colonoscopy in 2007 normal. Colonoscopy in 2013 which was normal. All colonoscopies with Dr. Prieto. CURRENT MEDICATIONS Current Outpatient Medications Medication Sig elderberry fruit (ELDERBERRY ORAL) Take 575 mg by mouth once daily. cholecalciferol (VITAMIN D-3) 5,000 unit tab Take 5,000 Units by mouth once daily. ferrous sulfate (IRON) 325 mg (65 mg iron) tablet Take 325 mg by mouth once daily. Cinnamon Bark (CINNAMON) 500 mg cap Take 500 mg by mouth two times a day. amLODIPine-Valsartan 5-320 mg per tablet Take 1 tablet by mouth once daily. atorvastatin (LIPITOR) 10 mg tablet Take 10 mg by mouth every other day. M-W-F VASCEPA capsule Take 2 g by mouth two times a day. pioglitazone (ACTOS) 30 mg tablet Take 30 mg by mouth once daily. MULTI-VITAMIN ORAL Take by mouth once daily. Ascorbic Huus-Kfrsmwdoh-Ndh (EMERGEN-C) 1,000 mg pwep Take by mouth once daily. lysine 500 mg tab Take 500 mg by mouth once daily. Vitamin E, dl, acetate, (VITAMIN E) 400 unit capsule Take 400 Units by mouth once daily. Saw [place] Fruit 450 mg cap Take 450 mg by mouth once daily. OTC NUTRITIONAL SUPPLEMENT Take 575 mg by mouth once daily. Black elderberry No current facility-administered medications for this visit. ALLERGIES: Patient has no known allergies. PAST MEDICAL HISTORY PAST MEDICAL HISTORY Diagnosis Date Essential hypertension High cholesterol [place] (obstructive sleep apnea) Pre-diabetes PAST SURGICAL HISTORY PAST SURGICAL HISTORY Procedure Laterality Date COLONOSCOPY 2014 repeat 10 years PAST SURGICAL HISTORY OF 2000 uvulopalatopharyngoplasty FAMILY HISTORY FAMILY HISTORY Problem Relation Age of Onset Diabetes Mother Cancer Mother Heart Attack Mother Hypertension Mother Diabetes Father Pancreatic Cancer Father other (other) Sister down syndrome Diabetes Brother SOCIAL HISTORY Social History Tobacco Use Smoking status: Never Smokeless tobacco: Never Vaping Use Vaping status: Never Used Substance Use Topics Alcohol use: Yes Alcohol/week: 1.0 standard drink of alcohol Types: 1 Glasses of Wine (5oz) per week Comment: daily red wine Drug use: Never REVIEW OF SYMPTOMS: REVIEW OF SYSTEMS: General: The patient denies fatigue, denies weight loss, denies weight gain, denies feeling hot, and feelings of cold. Eyes: The patient denies glaucoma, denies eye injury/surgery, denies glasses or + contacts. Ear/Nose/Throat: The patient denies allergies, denies hayfever, denies ear infections, and denies bloody noses. Cardiovascular: The patient denies chest pain, denies heart disease, + high blood pressure, + high cholesterol, and denies poor circulation. Respiratory: The patient denies tuberculosis, denies pneumonia, denies frequent cough, denies shortness of breath, and denies coughing up blood. Gastrointestinal: The patient denies difficulty swallowing, denies acid reflux, denies ulcers, denies jaundice/hepatitis, denies gallbladder problems, denies vomiting, denies black or tarry stools, + hemorrhoids, denies bleeding from rectum, denies diverticulitis, [...] denies psychiatric medications, denies depression, and denies voices. Endocrine: The patient denies thyroid disorders, + pre-diabetes, and denies hormonal problems. Hematologic: The patient denies a history of bruising, denies bleeding, and denies anemia. Infections: The patient denies a history of measles and mumps, denies rheumatic fever, and denies sexually transmitted diseases. Musculoskeletal: The patient denies back pain/injury, denies back problems, denies sciatica, denies knee/foot trouble, denies arthritis, or denies gout. PHYSICAL EXAMINATION: General: The patient is 68 year old, male well nourished, well hydrated in no acute distress. The patient is oriented to time, place, and person. VITALS: Blood pressure 136/76, pulse 77, temperature 36.3 C (97.3 F), height 170.2 cm (5' 7), weight 101.9 kg (224 lb 9.6 oz), SpO2 99%. Body mass index is 35.18 kg/m . HEENT: Normal cephalic, ataumatic, pupils are equally round, sclera are anicteric, mucous membranes are moist, oropharynx is clear. Neck has no masses, asymmetry or lymphadenopathy. Respiratory: Clear to auscultation and percussion. Normal respiratory excursion and pattern. Cardiac: Examination is regular rate and rhythm. Normal S1/S2 Abdominal exam: Soft, nontender, with no palpable masses. No hepatosplenomegaly. No palpable hernias. Extremities: no clubbing, cyanosis or edema. No adenopathy. LABORATORY VALUES: As Noted RADIOLOGIC STUDIES: As Noted Assessment IMPRESSION: screen for colon caner, history of polyps in 2004. PLAN: I have reviewed my findings with the surgeon. Will plan for lower endoscopy. We discussed the risks and benefits of the planned endoscopy. I have informed the patient that complications can occur including failure to complete the endoscopy and perforation. Carisa had the opportunity to ask questions concerning the planned endoscopy. My staff has also explained the procedure to the patient in understandable terms and has given the patient printed material concerning the procedure. Carisa freely consents to surgery. I plan to use Golytely bowel preparation Patient instructed to contact PCP for instructions regarding diabetic medication, which may require adjustment during bowel preparation and/or day of procedure. I have explained to the patient the difference between IV conscious sedation and MAC anesthesia - and I have offered either, according to the patient's wishes. I have explained that with IV conscious sedation there is no anesthesia provider available and therefore there is a limitation of the amount of IV medications that can be given and that the patient may wake up in the middle of the procedure and/or experience pain/discomfort during the procedure. Further discussion was done and the patient was given the opportunity to ask questions and all questions were answered. Carisa chooses IV conscious sedation. Carisa was counseled that if there are changes in his/her medical condition, to let the office know if surgery should proceed. If there are changes in patient's medical condition from time of this encounter to the day of the procedure that preclude anesthesia, patient may have procedure cancelled for patient's safety. Diagnoses: (Z12.11) Encounter for screening for malignant neoplasm of colon (primary encounter diagnosis) (Z86.0100) History of colonic polyps Portions of this documentation were copied and pasted from previous office visit notes in order to provide a cohesive continuity of the history. The note has been reviewed and edited and updated as necessary. Sommer Marrero APRN.SPL[employer]K DASH[employer]ARD DEVELOPER [facility] Work Phone: 02-28-2024 History and physical note HISTORY AND PHYSICAL Carisa Painting : 1955 REFERRING PHYSICIAN: Estuardo Acevedo ([facility]) [address] [facility] [id number] CHIEF COMPLAINT: Patient presents with: Consult: Colonoscopy consultation. HPI: Carisa is a 68 year old male referred for endoscopy. Carisa notes due for screening colonoscopy. Carisa denies abdominal pain.. Carisa denies diarrhea. Carisa denies constipation. Carisa denies a change in bowel habits. Carisa denies melena. Carisa denies bright red blood per rectum. Carisa denies hemorrhoids. Carisa denies heartburn. Carisa denies dysphagia. Carisa denies a history of ulcers/ peptic ulcer disease. Carisa denies family history of colon issues. Medical history significant for HTN, HLD, [place]. Carisa has undergone prior endoscopy. Colonoscopy in 2004 had 1 polyp, path unavailable, repeat colonoscopy in 2007 normal. Colonoscopy in 2013 which was normal. All colonoscopies with Dr. Prieto. CURRENT MEDICATIONS Current Outpatient Medications Medication Sig elderberry fruit (ELDERBERRY ORAL) Take 575 mg by mouth once daily. cholecalciferol (VITAMIN D-3) 5,000 unit tab Take 5,000 Units by mouth once daily. ferrous sulfate (IRON) 325 mg (65 mg iron) tablet Take 325 mg by mouth once daily. Cinnamon Bark (CINNAMON) 500 mg cap Take 500 mg by mouth two times a day. amLODIPine-Valsartan 5-320 mg per tablet Take 1 tablet by mouth once daily. atorvastatin (LIPITOR) 10 mg tablet Take 10 mg by mouth every other day. M-W-F VASCEPA capsule Take 2 g by mouth two times a day. pioglitazone (ACTOS) 30 mg tablet Take 30 mg by mouth once daily. MULTI-VITAMIN ORAL Take by mouth once daily. Ascorbic Qiat-Rewafspmf-Kgn (EMERGEN-C) 1,000 mg pwep Take by mouth once daily. lysine 500 mg tab Take 500 mg by mouth once daily. Vitamin E, dl, acetate, (VITAMIN E) 400 unit capsule Take 400 Units by mouth once daily. Saw [place] Fruit 450 mg cap Take 450 mg by mouth once daily. OTC NUTRITIONAL SUPPLEMENT Take 575 mg by mouth once daily. Black elderberry No current facility-administered medications for this visit. ALLERGIES: Patient has no known allergies. PAST MEDICAL HISTORY PAST MEDICAL HISTORY Diagnosis Date Essential hypertension High cholesterol [place] (obstructive sleep apnea) Pre-diabetes PAST SURGICAL HISTORY PAST SURGICAL HISTORY Procedure Laterality Date COLONOSCOPY 2014 repeat 10 years PAST SURGICAL HISTORY OF 2001 uvulopalatopharyngoplasty FAMILY HISTORY FAMILY HISTORY Problem Relation Age of Onset Diabetes Mother Cancer Mother Heart Attack Mother Hypertension Mother Diabetes Father Pancreatic Cancer Father other (other) Sister down syndrome Diabetes Brother SOCIAL HISTORY Social History Tobacco Use Smoking status: Never Smokeless tobacco: Never Vaping Use Vaping status: Never Used Substance Use Topics Alcohol use: Yes Alcohol/week: 1.0 standard drink of alcohol Types: 1 Glasses of Wine (5oz) per week Comment: daily red wine Drug use: Never REVIEW OF SYMPTOMS: REVIEW OF SYSTEMS: General: The patient denies fatigue, denies weight loss, denies weight gain, denies feeling hot, and feelings of cold. Eyes: The patient denies glaucoma, denies eye injury/surgery, denies glasses or + contacts. Ear/Nose/Throat: The patient denies allergies, denies hayfever, denies ear infections, and denies bloody noses. Cardiovascular: The patient denies chest pain, denies heart disease, + high blood pressure, + high cholesterol, and denies poor circulation. Respiratory: The patient denies tuberculosis, denies pneumonia, denies frequent cough, denies shortness of breath, and denies coughing up blood. Gastrointestinal: The patient denies difficulty swallowing, denies acid reflux, denies ulcers, denies jaundice/hepatitis, denies gallbladder problems, denies vomiting, denies black or tarry stools, + hemorrhoids, denies bleeding from rectum, denies diverticulitis, [...] denies psychiatric medications, denies depression, and denies voices. Endocrine: The patient denies thyroid disorders, + pre-diabetes, and denies hormonal problems. Hematologic: The patient denies a history of bruising, denies bleeding, and denies anemia. Infections: The patient denies a history of measles and mumps, denies rheumatic fever, and denies sexually transmitted diseases. Musculoskeletal: The patient denies back pain/injury, denies back problems, denies sciatica, denies knee/foot trouble, denies arthritis, or denies gout. PHYSICAL EXAMINATION: General: The patient is 68 year old, male well nourished, well hydrated in no acute distress. The patient is oriented to time, place, and person. VITALS: Blood pressure 136/76, pulse 77, temperature 36.3 C (97.3 F), height 170.2 cm (5' 7), weight 101.9 kg (224 lb 9.6 oz), SpO2 99%. Body mass index is 35.18 kg/m . HEENT: Normal cephalic, ataumatic, pupils are equally round, sclera are anicteric, mucous membranes are moist, oropharynx is clear. Neck has no masses, asymmetry or lymphadenopathy. Respiratory: Clear to auscultation and percussion. Normal respiratory excursion and pattern. Cardiac: Examination is regular rate and rhythm. Normal S1/S2 Abdominal exam: Soft, nontender, with no palpable masses. No hepatosplenomegaly. No palpable hernias. Extremities: no clubbing, cyanosis or edema. No adenopathy. LABORATORY VALUES: As Noted RADIOLOGIC STUDIES: As Noted Assessment IMPRESSION: screen for colon caner, history of polyps in 2004. PLAN: I have reviewed my findings with the surgeon. Will plan for lower endoscopy. We discussed the risks and benefits of the planned endoscopy. I have informed the patient that complications can occur including failure to complete the endoscopy and perforation. Carisa had the opportunity to ask questions concerning the planned endoscopy. My staff has also explained the procedure to the patient in understandable terms and has given the patient printed material concerning the procedure. Carisa freely consents to surgery. I plan to use Golytely bowel preparation Patient instructed to contact PCP for instructions regarding diabetic medication, which may require adjustment during bowel preparation and/or day of procedure. I have explained to the patient the difference between IV conscious sedation and MAC anesthesia - and I have offered either, according to the patient's wishes. I have explained that with IV conscious sedation there is no anesthesia provider available and therefore there is a limitation of the amount of IV medications that can be given and that the patient may wake up in the middle of the procedure and/or experience pain/discomfort during the procedure. Further discussion was done and the patient was given the opportunity to ask questions and all questions were answered. Carisa chooses IV conscious sedation. Carisa was counseled that if there are changes in his/her medical condition, to let the office know if surgery should proceed. If there are changes in patient's medical condition from time of this encounter to the day of the procedure that preclude anesthesia, patient may have procedure cancelled for patient's safety. Diagnoses: (Z12.11) Encounter for screening for malignant neoplasm of colon (primary encounter diagnosis) (Z86.0100) History of colonic polyps Portions of this documentation were copied and pasted from previous office visit notes in order to provide a cohesive continuity of the history. The note has been reviewed and edited and updated as necessary. Sommer Marrero APRN.SPL[employer] DASHBOARD DEVELOPER [facility] 02-28-2024 History and physical note UPDATED PROCEDURAL SEDATION HISTORY AND PHYSICAL EXAMINATION SERVICE DATE: 02/28/2024 SERVICE TIME: 8:58 PHYSICAL EXAM MUST BE COMPLETED ON ADMISSION PROCEDURE: colonoscopy, possible biopsies Procedure Indications: screening for colon cancer The History and Physical (completed in the past 30 days) has been reviewed and the patient has been examined. The contents accurately reflect the patient's condition with the following additions or revisions since the H&P was completed. ASA Class: ASA Class: Patient with severe systemic disease Examination indicates no changes. AIRWAY: Airway Visualization of Uvula: Yes Mouth opening greater than 2 fingerbreadths: Yes Neck Full Range of Motion: Yes LUNGS: Lungs clear to auscultation CARDIAC: Regular rhythm,Regular rate Provisional Diagnosis/Treatment Plan: colonoscopy, possible biopsies Sedation Goal: Moderate This H&P can be found in the Electronic Medical Record . SIGNATURE: Annmarie Prieto MD PATIENT NAME: Carisa Mcdonald DATE: February 28, 2024 TIME: 8:59 AM Source Note - Annmarie Prieto MD - 02/28/2024 9:45 AM EST HISTORY AND PHYSICAL Carisa Painiris : 1955 REFERRING PHYSICIAN: Estuardo Acevedo ([facility]) [address] [facility] [id number] CHIEF COMPLAINT: Patient presents with: Consult: Colonoscopy consultation. HPI: Carisa is a 68 year old male referred for endoscopy. Carisa notes due for screening colonoscopy. Carisa denies abdominal pain.. Carisa denies diarrhea. Carisa denies constipation. Carisa denies a change in bowel habits. Carisa denies melena. Carisa denies bright red blood per rectum. Carisa denies hemorrhoids. Carisa denies heartburn. Carisa denies dysphagia. Carisa denies a history of ulcers/ peptic ulcer disease. Carisa denies family history of colon issues. Medical history significant for HTN, HLD, [place]. Carisa has undergone prior endoscopy. Colonoscopy in 2004 had 1 polyp, path unavailable, repeat colonoscopy in 2007 normal. Colonoscopy in 2013 which was normal. All colonoscopies with Dr. Prieto. CURRENT MEDICATIONS Current Outpatient Medications Medication Sig elderberry fruit (ELDERBERRY ORAL) Take 575 mg by mouth once daily. cholecalciferol (VITAMIN D-3) 5,000 unit tab Take 5,000 Units by mouth once daily. ferrous sulfate (IRON) 325 mg (65 mg iron) tablet Take 325 mg by mouth once daily. Cinnamon Bark (CINNAMON) 500 mg cap Take 500 mg by mouth two times a day. amLODIPine-Valsartan 5-320 mg per tablet Take 1 tablet by mouth once daily. atorvastatin (LIPITOR) 10 mg tablet Take 10 mg by mouth every other day. M-W-F VASCEPA capsule Take 2 g by mouth two times a day. pioglitazone (ACTOS) 30 mg tablet Take 30 mg by mouth once daily. MULTI-VITAMIN ORAL Take by mouth once daily. Ascorbic Eaqk-Raerfughy-Uzn (EMERGEN-C) 1,000 mg pwep Take by mouth once daily. lysine 500 mg tab Take 500 mg by mouth once daily. Vitamin E, dl, acetate, (VITAMIN E) 400 unit capsule Take 400 Units by mouth once daily. Saw [place] Fruit 450 mg cap Take 450 mg by mouth once daily. OTC NUTRITIONAL SUPPLEMENT Take 575 mg by mouth once daily. Black elderberry No current facility-administered medications for this visit. ALLERGIES: Patient has no known allergies. PAST MEDICAL HISTORY PAST MEDICAL HISTORY Diagnosis Date Essential hypertension High cholesterol [place] (obstructive sleep apnea) Pre-diabetes PAST SURGICAL HISTORY PAST SURGICAL HISTORY Procedure Laterality Date COLONOSCOPY 2014 repeat 10 years PAST SURGICAL HISTORY OF 2001 uvulopalatopharyngoplasty FAMILY HISTORY FAMILY HISTORY Problem Relation Age of Onset Diabetes Mother Cancer Mother Heart Attack Mother Hypertension Mother Diabetes Father Pancreatic Cancer Father other (other) Sister down syndrome Diabetes Brother SOCIAL HISTORY Social History Tobacco Use Smoking status: Never Smokeless tobacco: Never Vaping Use Vaping status: Never Used Substance Use Topics Alcohol use: Yes Alcohol/week: 1.0 standard drink of alcohol Types: 1 Glasses of Wine (5oz) per week Comment: daily red wine Drug use: Never REVIEW OF SYMPTOMS: REVIEW OF SYSTEMS: General: The patient denies fatigue, denies weight loss, denies weight gain, denies feeling hot, and feelings of cold. Eyes: The patient denies glaucoma, denies eye injury/surgery, denies glasses or + contacts. Ear/Nose/Throat: The patient denies allergies, denies hayfever, denies ear infections, and denies bloody noses. Cardiovascular: The patient denies chest pain, denies heart disease, + high blood pressure, + high cholesterol, and denies poor circulation. Respiratory: The patient denies tuberculosis, denies pneumonia, denies frequent cough, denies shortness of breath, and denies coughing up blood. Gastrointestinal: The patient denies difficulty swallowing, denies acid reflux, denies ulcers, denies jaundice/hepatitis, denies gallbladder problems, denies vomiting, denies black or tarry stools, + hemorrhoids, denies bleeding from rectum, denies diverticulitis, [...] denies psychiatric medications, denies depression, and denies voices. Endocrine: The patient denies thyroid disorders, + pre-diabetes, and denies hormonal problems. Hematologic: The patient denies a history of bruising, denies bleeding, and denies anemia. Infections: The patient denies a history of measles and mumps, denies rheumatic fever, and denies sexually transmitted diseases. Musculoskeletal: The patient denies back pain/injury, denies back problems, denies sciatica, denies knee/foot trouble, denies arthritis, or denies gout. PHYSICAL EXAMINATION: General: The patient is 68 year old, male well nourished, well hydrated in no acute distress. The patient is oriented to time, place, and person. VITALS: Blood pressure 136/76, pulse 77, temperature 36.3 C (97.3 F), height 170.2 cm (5' 7), weight 101.9 kg (224 lb 9.6 oz), SpO2 99%. Body mass index is 35.18 kg/m . HEENT: Normal cephalic, ataumatic, pupils are equally round, sclera are anicteric, mucous membranes are moist, oropharynx is clear. Neck has no masses, asymmetry or lymphadenopathy. Respiratory: Clear to auscultation and percussion. Normal respiratory excursion and pattern. Cardiac: Examination is regular rate and rhythm. Normal S1/S2 Abdominal exam: Soft, nontender, with no palpable masses. No hepatosplenomegaly. No palpable hernias. Extremities: no clubbing, cyanosis or edema. No adenopathy. LABORATORY VALUES: As Noted RADIOLOGIC STUDIES: As Noted Assessment IMPRESSION: screen for colon caner, history of polyps in 2004. PLAN: I have reviewed my findings with the surgeon. Will plan for lower endoscopy. We discussed the risks and benefits of the planned endoscopy. I have informed the patient that complications can occur including failure to complete the endoscopy and perforation. Carisa had the opportunity to ask questions concerning the planned endoscopy. My staff has also explained the procedure to the patient in understandable terms and has given the patient printed material concerning the procedure. Carisa freely consents to surgery. I plan to use Golytely bowel preparation Patient instructed to contact PCP for instructions regarding diabetic medication, which may require adjustment during bowel preparation and/or day of procedure. I have explained to the patient the difference between IV conscious sedation and MAC anesthesia - and I have offered either, according to the patient's wishes. I have explained that with IV conscious sedation there is no anesthesia provider available and therefore there is a limitation of the amount of IV medications that can be given and that the patient may wake up in the middle of the procedure and/or experience pain/discomfort during the procedure. Further discussion was done and the patient was given the opportunity to ask questions and all questions were answered. Carisa chooses IV conscious sedation. Carisa was counseled that if there are changes in his/her medical condition, to let the office know if surgery should proceed. If there are changes in patient's medical condition from time of this encounter to the day of the procedure that preclude anesthesia, patient may have procedure cancelled for patient's safety. Diagnoses: (Z12.11) Encounter for screening for malignant neoplasm of colon (primary encounter diagnosis) (Z86.0100) History of colonic polyps Portions of this documentation were copied and pasted from previous office visit notes in order to provide a cohesive continuity of the history. The note has been reviewed and edited and updated as necessary. Smomer Marrero APRN.SPLUNK DASHBOARD DEVELOPER HISTORY AND PHYSICAL Carisa Painting : 1955 REFERRING PHYSICIAN: Estuardo Acevedo ([facility]) [address] [facility] [address] CHIEF COMPLAINT: Patient presents with: Consult: Colonoscopy consultation. HPI: Carisa is a 68 year old male referred for endoscopy. Carisa notes due for screening colonoscopy. Carisa denies abdominal pain.. Carisa denies diarrhea. Carisa denies constipation. Carisa denies a change in bowel habits. Carisa denies melena. Carisa denies bright red blood per rectum. Carisa denies hemorrhoids. Carisa denies heartburn. Carisa denies dysphagia. Carisa denies a history of ulcers/ peptic ulcer disease. Carisa denies family history of colon issues. Medical history significant for HTN, HLD, WEST[place]. Carisa has undergone prior endoscopy. Colonoscopy in 2004 had 1 polyp, path unavailable, repeat colonoscopy in 2007 normal. Colonoscopy in 2013 which was normal. All colonoscopies with Dr. Prieto. CURRENT MEDICATIONS Current Outpatient Medications Medication Sig elderberry fruit (ELDERBERRY ORAL) Take 575 mg by mouth once daily. cholecalciferol (VITAMIN D-3) 5,000 unit tab Take 5,000 Units by mouth once daily. ferrous sulfate (IRON) 325 mg (65 mg iron) tablet Take 325 mg by mouth once daily. Cinnamon Bark (CINNAMON) 500 mg cap Take 500 mg by mouth two times a day. amLODIPine-Valsartan 5-320 mg per tablet Take 1 tablet by mouth once daily. atorvastatin (LIPITOR) 10 mg tablet Take 10 mg by mouth every other day. M-W-F VASCEPA capsule Take 2 g by mouth two times a day. pioglitazone (ACTOS) 30 mg tablet Take 30 mg by mouth once daily. MULTI-VITAMIN ORAL Take by mouth once daily. Ascorbic Qxhv-Rlrqkswna-Ozi (EMERGEN-C) 1,000 mg pwep Take by mouth once daily. lysine 500 mg tab Take 500 mg by mouth once daily. Vitamin E, dl, acetate, (VITAMIN E) 400 unit capsule Take 400 Units by mouth once daily. Saw [place] Fruit 450 mg cap Take 450 mg by mouth once daily. OTC NUTRITIONAL SUPPLEMENT Take 575 mg by mouth once daily. Black elderberry No current facility-administered medications for this visit. ALLERGIES: Patient has no known allergies. PAST MEDICAL HISTORY PAST MEDICAL HISTORY Diagnosis Date Essential hypertension High cholesterol [place] (obstructive sleep apnea) Pre-diabetes PAST SURGICAL HISTORY PAST SURGICAL HISTORY Procedure Laterality Date COLONOSCOPY 2013 repeat 10 years PAST SURGICAL HISTORY OF 2001 uvulopalatopharyngoplasty FAMILY HISTORY FAMILY HISTORY Problem Relation Age of Onset Diabetes Mother Cancer Mother Heart Attack Mother Hypertension Mother Diabetes Father Pancreatic Cancer Father other (other) Sister down syndrome Diabetes Brother SOCIAL HISTORY Social History Tobacco Use Smoking status: Never Smokeless tobacco: Never Vaping Use Vaping status: Never Used Substance Use Topics Alcohol use: Yes Alcohol/week: 1.0 standard drink of alcohol Types: 1 Glasses of Wine (5oz) per week Comment: daily red wine Drug use: Never REVIEW OF SYMPTOMS: REVIEW OF SYSTEMS: General: The patient denies fatigue, denies weight loss, denies weight gain, denies feeling hot, and feelings of cold. Eyes: The patient denies glaucoma, denies eye injury/surgery, denies glasses or + contacts. Ear/Nose/Throat: The patient denies allergies, denies hayfever, denies ear infections, and denies bloody noses. Cardiovascular: The patient denies chest pain, denies heart disease, + high blood pressure, + high cholesterol, and denies poor circulation. Respiratory: The patient denies tuberculosis, denies pneumonia, denies frequent cough, denies shortness of breath, and denies coughing up blood. Gastrointestinal: The patient denies difficulty swallowing, denies acid reflux, denies ulcers, denies jaundice/hepatitis, denies gallbladder problems, denies vomiting, denies black or tarry stools, + hemorrhoids, denies bleeding from rectum, denies diverticulitis, [...] denies psychiatric medications, denies depression, and denies voices. Endocrine: The patient denies thyroid disorders, + pre-diabetes, and denies hormonal problems. Hematologic: The patient denies a history of bruising, denies bleeding, and denies anemia. Infections: The patient denies a history of measles and mumps, denies rheumatic fever, and denies sexually transmitted diseases. Musculoskeletal: The patient denies back pain/injury, denies back problems, denies sciatica, denies knee/foot trouble, denies arthritis, or denies gout. PHYSICAL EXAMINATION: General: The patient is 68 year old, male well nourished, well hydrated in no acute distress. The patient is oriented to time, place, and person. VITALS: Blood pressure 136/76, pulse 77, temperature 36.3 C (97.3 F), height 170.2 cm (5' 7), weight 101.9 kg (224 lb 9.6 oz), SpO2 99%. Body mass index is 35.18 kg/m . HEENT: Normal cephalic, ataumatic, pupils are equally round, sclera are anicteric, mucous membranes are moist, oropharynx is clear. Neck has no masses, asymmetry or lymphadenopathy. Respiratory: Clear to auscultation and percussion. Normal respiratory excursion and pattern. Cardiac: Examination is regular rate and rhythm. Normal S1/S2 Abdominal exam: Soft, nontender, with no palpable masses. No hepatosplenomegaly. No palpable hernias. Extremities: no clubbing, cyanosis or edema. No adenopathy. LABORATORY VALUES: As Noted RADIOLOGIC STUDIES: As Noted Assessment IMPRESSION: screen for colon caner, history of polyps in 2004. PLAN: I have reviewed my findings with the surgeon. Will plan for lower endoscopy. We discussed the risks and benefits of the planned endoscopy. I have informed the patient that complications can occur including failure to complete the endoscopy and perforation. Carisa had the opportunity to ask questions concerning the planned endoscopy. My staff has also explained the procedure to the patient in understandable terms and has given the patient printed material concerning the procedure. Carisa freely consents to surgery. I plan to use Golytely bowel preparation Patient instructed to contact PCP for instructions regarding diabetic medication, which may require adjustment during bowel preparation and/or day of procedure. I have explained to the patient the difference between IV conscious sedation and MAC anesthesia - and I have offered either, according to the patient's wishes. I have explained that with IV conscious sedation there is no anesthesia provider available and therefore there is a limitation of the amount of IV medications that can be given and that the patient may wake up in the middle of the procedure and/or experience pain/discomfort during the procedure. Further discussion was done and the patient was given the opportunity to ask questions and all questions were answered. Carisa chooses IV conscious sedation. Carisa was counseled that if there are changes in his/her medical condition, to let the office know if surgery should proceed. If there are changes in patient's medical condition from time of this encounter to the day of the procedure that preclude anesthesia, patient may have procedure cancelled for patient's safety. Diagnoses: (Z12.11) Encounter for screening for malignant neoplasm of colon (primary encounter diagnosis) (Z86.0100) History of colonic polyps Portions of this documentation were copied and pasted from previous office visit notes in order to provide a cohesive continuity of the history. The note has been reviewed and edited and updated as necessary. Sommer Marrero APRN.SPLUNK DASHBOARD DEVELOPER documented in this encounter [facility] 01-28-2024 History of Presen t illness Narrative HISTORY AND PHYSICAL Carisa Painting : 1955 REFERRING PHYSICIAN: Estuardo Acevedo ([facility]) [address] [facility] [address] [facility] [address] CHIEF COMPLAINT: Patient presents with: Consult: Colonoscopy consultation. HPI: Carisa is a 68 year old male referred for endoscopy. Carisa notes due for screening colonoscopy. Carisa denies abdominal pain.. Carisa denies diarrhea. Carisa denies constipation. Carisa denies a change in bowel habits. Carisa denies melena. Carisa denies bright red blood per rectum. Carisa denies hemorrhoids. Carisa denies heartburn. Carisa denies dysphagia. Carisa denies a history of ulcers/ peptic ulcer disease. Carisa denies family history of colon issues. Medical history significant for HTN, HLD, [place]. Carisa has undergone prior endoscopy. Colonoscopy in 2004 had 1 polyp, path unavailable, repeat colonoscopy in 2007 normal. Colonoscopy in 2013 which was normal. All colonoscopies with Dr. Pireto. Current Outpatient Medications Medication Sig elderberry fruit (ELDERBERRY ORAL) Take 575 mg by mouth once daily. cholecalciferol (VITAMIN D-3) 5,000 unit tab Take 5,000 Units by mouth once daily. ferrous sulfate (IRON) 325 mg (65 mg iron) tablet Take 325 mg by mouth once daily. Cinnamon Bark (CINNAMON) 500 mg cap Take 500 mg by mouth two times a day. amLODIPine-Valsartan 5-320 mg per tablet Take 1 tablet by mouth once daily. atorvastatin (LIPITOR) 10 mg tablet Take 10 mg by mouth every other day. M-W-F VASCEPA capsule Take 2 g by mouth two times a day. pioglitazone (ACTOS) 30 mg tablet Take 30 mg by mouth once daily. MULTI-VITAMIN ORAL Take by mouth once daily. Ascorbic Ggod-Wbuaxyvek-Weh (EMERGEN-C) 1,000 mg pwep Take by mouth once daily. lysine 500 mg tab Take 500 mg by mouth once daily. Vitamin E, dl, acetate, (VITAMIN E) 400 unit capsule Take 400 Units by mouth once daily. Saw [place] Fruit 450 mg cap Take 450 mg by mouth once daily. OTC NUTRITIONAL SUPPLEMENT Take 575 mg by mouth once daily. Black elderberry No current facility-administered medications for this visit. ALLERGIES: Patient has no known allergies. PAST MEDICAL HISTORY Diagnosis Date Essential hypertension High cholesterol [place] (obstructive sleep apnea) Pre-diabetes PAST SURGICAL HISTORY Procedure Laterality Date COLONOSCOPY 2013 repeat 10 years PAST SURGICAL HISTORY OF 2000 uvulopalatopharyngoplasty FAMILY HISTORY Problem Relation Age of Onset Diabetes Mother Cancer Mother Heart Attack Mother Hypertension Mother Diabetes Father Pancreatic Cancer Father other (other) Sister down syndrome Diabetes Brother Social History Tobacco Use Smoking status: Never Smokeless tobacco: Never Vaping Use Vaping status: Never Used Substance Use Topics Alcohol use: Yes Alcohol/week: 1.0 standard drink of alcohol Types: 1 Glasses of Wine (5oz) per week Comment: daily red wine Drug use: Never REVIEW OF SYMPTOMS: REVIEW OF SYSTEMS: General: The patient denies fatigue, denies weight loss, denies weight gain, denies feeling hot, and feelings of cold. Eyes: The patient denies glaucoma, denies eye injury/surgery, denies glasses or + contacts. Ear/Nose/Throat: The patient denies allergies, denies hayfever, denies ear infections, and denies bloody noses. Cardiovascular: The patient denies chest pain, denies heart disease, + high blood pressure, + high cholesterol, and denies poor circulation. Respiratory: The patient denies tuberculosis, denies pneumonia, denies frequent cough, denies shortness of breath, and denies coughing up blood. Gastrointestinal: The patient denies difficulty swallowing, denies acid reflux, denies ulcers, denies jaundice/hepatitis, denies gallbladder problems, denies vomiting, denies black or tarry stools, + hemorrhoids, denies bleeding from rectum, denies diverticulitis, [...] denies psychiatric medications, denies depression, and denies voices. Endocrine: The patient denies thyroid disorders, + pre-diabetes, and denies hormonal problems. Hematologic: The patient denies a history of bruising, denies bleeding, and denies anemia. Infections: The patient denies a history of measles and mumps, denies rheumatic fever, and denies sexually transmitted diseases. Musculoskeletal: The patient denies back pain/injury, denies back problems, denies sciatica, denies knee/foot trouble, denies arthritis, or denies gout. PHYSICAL EXAMINATION: General: The patient is 68 year old, male well nourished, well hydrated in no acute distress. The patient is oriented to time, place, and person. VITALS: Blood pressure 136/76, pulse 77, temperature 36.3 C (97.3 F), height 170.2 cm (5' 7), weight 101.9 kg (224 lb 9.6 oz), SpO2 99%. Body mass index is 35.18 kg/m . HEENT: Normal cephalic, ataumatic, pupils are equally round, sclera are anicteric, mucous membranes are moist, oropharynx is clear. Neck has no masses, asymmetry or lymphadenopathy. Respiratory: Clear to auscultation and percussion. Normal respiratory excursion and pattern. Cardiac: Examination is regular rate and rhythm. Normal S1/S2 Abdominal exam: Soft, nontender, with no palpable masses. No hepatosplenomegaly. No palpable hernias. Extremities: no clubbing, cyanosis or edema. No adenopathy. LABORATORY VALUES: As Noted RADIOLOGIC STUDIES: As Noted Assessment IMPRESSION: screen for colon caner, history of polyps in 2004. PLAN: I have reviewed my findings with the surgeon. Will plan for lower endoscopy. We discussed the risks and benefits of the planned endoscopy. I have informed the patient that complications can occur including failure to complete the endoscopy and perforation. Carisa had the opportunity to ask questions concerning the planned endoscopy. My staff has also explained the procedure to the patient in understandable terms and has given the patient printed material concerning the procedure. Carisa freely consents to surgery. I plan to use Golytely bowel preparation Patient instructed to contact PCP for instructions regarding diabetic medication, which may require adjustment during bowel preparation and/or day of procedure. I have explained to the patient the difference between IV conscious sedation and MAC anesthesia - and I have offered either, according to the patient's wishes. I have explained that with IV conscious sedation there is no anesthesia provider available and therefore there is a limitation of the amount of IV medications that can be given and that the patient may wake up in the middle of the procedure and/or experience pain/discomfort during the procedure. Further discussion was done and the patient was given the opportunity to ask questions and all questions were answered. Carisa chooses IV conscious sedation. Carisa was counseled that if there are changes in his/her medical condition, to let the office know if surgery should proceed. If there are changes in patient's medical condition from time of this encounter to the day of the procedure that preclude anesthesia, patient may have procedure cancelled for patient's safety. Diagnoses: (Z12.11) Encounter for screening for malignant neoplasm of colon (primary encounter diagnosis) (Z86.0100) History of colonic polyps Portions of this documentation were copied and pasted from previous office visit notes in order to provide a cohesive continuity of the history. The note has been reviewed and edited and updated as necessary. Sommer Marrero APRN.SPLUNK DASHBOARD DEVELOPER documented in this encounter [facility] 01-28-2024 Note HNO ID: [id number] Author: SOMMER MARRERO APRN.CNP Service: ? Author Type: Nurse Practitioner Type: Progress Notes Filed: 01/28/2024 11:41 Note Text: HISTORY AND PHYSICAL Carisa Mcdonald : 1955 REFERRING PHYSICIAN: Estuardo Acevedo ([facility]) [address] [address] CHIEF COMPLAINT: Patient presents with: Consult: Colonoscopy consultation. HPI: Carisa is a 68 year old male referred for endoscopy. Carisa notes due for screening colonoscopy. Carisa denies abdominal pain.. Carisa denies diarrhea. Carisa denies constipation. Carisa denies a change in bowel habits. Carisa denies melena. Carisa denies bright red blood per rectum. Carisa denies hemorrhoids. Carisa denies heartburn. Carisa denies dysphagia. Carisa denies a history of ulcers/ peptic ulcer disease. Carisa denies family history of colon issues. Medical history significant for HTN, HLD, [place]. Carisa has undergone prior endoscopy. Colonoscopy in 2004 had 1 polyp, path unavailable, repeat colonoscopy in 2007 normal. Colonoscopy in 2013 which was normal. All colonoscopies with Dr. Prieto. Current Outpatient Medications Medication Sig elderberry fruit (ELDERBERRY ORAL) Take 575 mg by mouth once daily. cholecalciferol (VITAMIN D-3) 5,000 unit tab Take 5,000 Units by mouth once daily. ferrous sulfate (IRON) 325 mg (65 mg iron) tablet Take 325 mg by mouth once daily. Cinnamon Bark (CINNAMON) 500 mg cap Take 500 mg by mouth two times a day. amLODIPine-Valsartan 5-320 mg per tablet Take 1 tablet by mouth once daily. atorvastatin (LIPITOR) 10 mg tablet Take 10 mg by mouth every other day. M-W-F VASCEPA capsule Take 2 g by mouth two times a day. pioglitazone (ACTOS) 30 mg tablet Take 30 mg by mouth once daily. MULTI-VITAMIN ORAL Take by mouth once daily. Ascorbic Txsx-Ngkpamako-Dte (EMERGEN-C) 1,000 mg pwep Take by mouth once daily. lysine 500 mg tab Take 500 mg by mouth once daily. Vitamin E, dl, acetate, (VITAMIN E) 400 unit capsule Take 400 Units by mouth once daily. Saw [place] Fruit 450 mg cap Take 450 mg by mouth once daily. OTC NUTRITIONAL SUPPLEMENT Take 575 mg by mouth once daily. Black elderberry No current facility-administered medications for this visit. ALLERGIES: Patient has no known allergies. PAST MEDICAL HISTORY Diagnosis Date Essential hypertension High cholesterol [place] (obstructive sleep apnea) Pre-diabetes PAST SURGICAL HISTORY Procedure Laterality Date COLONOSCOPY 2013 repeat 10 years PAST SURGICAL HISTORY OF 2000 uvulopalatopharyngoplasty FAMILY HISTORY Problem Relation Age of Onset Diabetes Mother Cancer Mother Heart Attack Mother Hypertension Mother Diabetes Father Pancreatic Cancer Father other (other) Sister down syndrome Diabetes Brother Social History Tobacco Use Smoking status: Never Smokeless tobacco: Never Vaping Use Vaping status: Never Used Substance Use Topics Alcohol use: Yes Alcohol/week: 1.0 standard drink of alcohol Types: 1 Glasses of Wine (5oz) per week Comment: daily red wine Drug use: Never REVIEW OF SYMPTOMS: REVIEW OF SYSTEMS: General: The patient denies fatigue, denies weight loss, denies weight gain, denies feeling hot, and feelings of cold. Eyes: The patient denies glaucoma, denies eye injury/surgery, denies glasses or + contacts. Ear/Nose/Throat: The patient denies allergies, denies hayfever, denies ear infections, and denies bloody noses. Cardiovascular: The patient denies chest pain, denies heart disease, + high blood pressure, + high cholesterol, and denies poor circulation. Respiratory: The patient denies tuberculosis, denies pneumonia, denies frequent cough, denies shortness of breath, and denies coughing up blood. Gastrointestinal: The patient denies difficulty swallowing, denies acid reflux, denies ulcers, denies jaundice/hepatitis, denies gallbladder problems, denies vomiting, denies black or tarry stools, + hemorrhoids, denies bleeding from rectum, denies diverticulitis, [...] denies psychiatric medications, denies depression, and denies voices. Endocrine: The patient denies thyroid disorders, + pre-diabetes, and denies hormonal problems. Hematologic: The patient denies a history of bruising, denies bleeding, and denies anemia. Infections: The patient denies a history of measles and mumps, denies rheumatic fever, and denies sexually transmitted diseases. Musculoskeletal: The patient denies back pain (more content not included)... [facility] Evaluation + Plan note No data available for this section [facility] Evaluation note No assessment inform ation available [facility] Work Phone: Evaluation note Diagnosis Encounter for screening for malignant neoplasm of colon- Primary Special screening for malignant neoplasms, colon History of colonic polyps Personal history of colonic polyps [facility] Screening for colon cancer- Primary Special screening for malignant neoplasms, colon Encounter for screening for malignant neoplasm of colon Special screening for malignant neoplasms, colon [facility] [place] Outpatient Procedure (Routine) - Authorized Specialty Diagnoses / Procedures Referred By Balbina t Referred To Contact [facility] Diagnoses Encounter for screening for malignant neoplasm of colon Procedures COLONOSCOPY SCREENING COLONOSCOPY FLX DX W/COLLJ SPEC WHEN Sommer Maldonado APRN.SPLUNK DASHBOARD DEVELOPER [address] [place] [address] [address] Referral ID Status Reason Start Date Expiration Date Visits Requested Visits Authorized [id number] Authorized Auto-Generat ed Referral 01/27/2025 1 1 [facility] for referral (narrative)* Outpatient Procedure (Routine) - Closed Specialty Diagnoses / Procedures Referred By Contleonard t Referred To Contact [facility] Diagnoses Encounter for screening for malignant neoplasm of colon Procedures COLONOSCOPY SCREENING COLONOSCOPY FLX DX W/COLLJ SPEC WHEN Sommer Maldonado APRN.SPLUNK DASHBOARD DEVELOPER [address] [place] [address] [address] Referral ID Status Reason Start Date Expiration Date V isits Requested Visits Authorized [id number] Closed Auto-Generate d Referral 01/28/2024 01/27/2025 1 1 [facility] for visit Narrative* Outpatient Procedure (Routine) - Closed Specialty Diagnoses / Procedures Referred By Balbina whipple Referred To Contact [facility] Diagnoses Encounter for screening for malignant neoplasm of colon Procedures COLONOSCOPY SCREENING COLONOSCOPY FLX DX W/COLLJ SPEC WHEN Sommer Maldonado APRN.SPLUNK DASHBOARD DEVELOPER [address] [place] [address] [address] Referral ID Status Reason Start Date Expiration Date V isits Requested Visits Authorized [id number] Closed Auto-Generate d Referral 01/28/2024 01/27/2025 1 1 [facility] Advance Directives Advance Directive Response Recorded Date/ Time Living Will No March 01 9:39am Power of Card Assembler No March 01, 2014 9:39am Advance Directive Response Recorded Date/ Time Living Will No March 01 8:39am Power of Card Assembler No March 01, 2014 8:39am Summary Purpose Family History No Family History Records FoundNo Family History Records FoundNo Family History Records Found No data available for this section Additional Source Comments Goals (unrecognized section and content) Goals may be documented in a n alternate sectionGoals may be documented in an alternate sectionGoals may be documented in an alternate sectionGoals may be documented in an alternate section No data available for this section Care Teams (unrecognized sec tion and content) Team Status: Active Member Role Status Dates Dr. Estuardo Acevedo MD Family Provider Active Dr. Estuardo Acevedo MD Primary Care Provider Active Team Status: Inactive Member Role Status Dates Dr. Estuardo Acevedo MD Primary Care Provider, Attending Ashley campbell Active Security Associate Relationship Specialty Start Date End Date Estuardo Acevedo MD [address] [place] [address] PCP - General Family Medicine 10/22/23 Security Associate Relationship Specialty Start Date End Date Estuardo Acevedo MD [address] [place] [address] PCP - General Family Medicine 10/22/23 Security Associate Relationship Specialty Start Date End Date Estuardo Acevedo MD [address] [facility] [address] [place] [address] PCP - General Family Medicine 10/22/23 INFORMATION SOURCE (unrecogn ized section and content) DATE CREATED AUTHOR 11/14/2023 [facility] ([place]) DATE CREATED AUTHOR AUTHOR'S ORGANIZ ATION 03/06/2024 [facility] DATE CREATED AUTHOR AUTHOR'S ORGANIZ ATION 05/22/2024 [facility] Source Comments (unrecognize d section and content) In the event this informatio n is protected by the Federal Confidentiality of Alcohol and Drug Abuse Patient Records regulations: The Federal rules restrict any use of the information to criminally investigate or prosecute any alcohol or drug abuse patient.[facility] the event this information is protected by the Federal Confidentiality of Alcohol and Drug Abuse Patient Records regulations: The Federal rules restrict any use of the information to criminally investigate or prosecute any alcohol or drug abuse patient.[facility] the event this information is protected by the Federal Confidentiality of Alcohol and Drug Abuse Patient Records regulations: The Federal rules restrict any use of the information to criminally investigate or prosecute any alcohol or drug abuse patient.[facility] Reason for Visit (unrecogniz ed section and content) Reason Comments Consult Colonoscopy consulta tion. (unrecognized sect ion and content) No Status Records FoundNo Status Records Found FOR RECORDS PERTAINING TO PATIENTS WHO ARE [...] BE BASED ON THE PRIMARY CLINICAL RECORDS. [facility]. provides no warranty or guarantee of the accuracy or completeness of information in this document.
[2024-11-11 16:09] LABS: PROEL- A/G Ratio 1.3 (0.7-1.7); PROEL- Albumin 3.5 g/dL (2.9-4.4); PROEL- Alpha-1 Globulin 0.2 g/dL (0.0-0.4); PROEL- Alpha-2 Globulin 0.6 g/dL (0.4-1.0); PROEL- Beta Globulin 1.0 g/dL (0.7-1.3); PROEL- Gamma Globulin 0.8 g/dL (0.4-1.8); PROEL- Globulin, Total 2.6 g/dL (2.2-3.9); PROEL- TOTAL PROTEIN 6.1 g/dL (6.0-8.5); PROEL-M-Spike Not Observed g/dL (Not Observed)
== END | disposition home or self-care (01) ==
LOC: MFPLAB 10:22
PROVIDERS: PCP Family Medicine; Referring Provider Family Medicine; Visit Provider Family Medicine
DX: I10 Essential (primary) hypertension (principal); E78.00 Pure hypercholesterolemia, unspecified; R42 Dizziness and giddiness
CPT/HCPCS: 36415; 80053; 80061; 84165; 84443; 85025

== ENCOUNTER → 2025-01-15 | Outpatient (CLI) | payer MEDICARE, OTHER, SELFPAY ==
--- NOTE | 2025-01-15 11:20 | MRI_ITS ---
PROCEDURE: BRAIN W/WO CONTRAST 01/15/2025 REASON FOR EXAM: LT HEARING LOSS TECHNIQUE: Procedure Code: [id number] Modality: MR Procedure: BRAIN W/WO CONTRAST Multiplanar and multisequence images were obtained. CONTRAST: VOLUME: mL COMPARISON: None. FINDINGS: A subtle focus of blush enhancement is noted in the inferior right basal ganglia (series 11 image 11, series 13 image 5), nonspecific. There is no corresponding signal abnormality on other sequences. A few small foci of FLAIR hyperintensity are noted within the bilateral cerebral white matter, nonspecific and without corresponding enhancement. The bilateral internal auditory canals appear unremarkable. The cisternal and canalicular segments of cranial nerves 7 and 8 appear unremarkable bilaterally. The cerebellar pontine angles are clear. The cisternal and caval segments of bilateral cranial nerves 5 appear unremarkable. The bilateral cochlea, vestibules, and semicircular canals appear intact and unremarkable. The rocha-white matter differentiation is appropriate. The ventricles are normal in size and configuration. No midline shift. The midline structures are intact, specifically the corpus callosum, septum pellucidum, pituitary gland, and cerebellar vermis. The cervicomedullary junction appears unremarkable. The paranasal sinuses are clear. Fluid is noted within a single right mastoid air cell. Diffusion-weighted images demonstrate no restricted diffusion. MRI/Brain W/WO Contrast IMPRESSION: 1. Unremarkable MRI of the internal auditory canals. 2. Subtle focus of blush enhancement in the inferior right basal ganglia, nons pecific. No corresponding signal abnormality on other sequences. Attention should be paid on follow-up imaging. 3. A few small nonspecific, nonenhancing FLAIR hyperintense foci within the bi lateral cerebral white matter. This probably represents mild chronic microvascular ischemic changes. Reading Location: [id number]
== END | disposition home or self-care (01) ==
LOC: MRI 10:52
PROVIDERS: PCP Family Medicine
DX: H90.42 Sensorineural hearing loss, unilateral, left ear, with unrestricted hearing on the contralateral side (principal)
CPT/HCPCS: 70553; A9575